=== PATIENT | male | born 1975 | race Two or more races ===

== ENCOUNTER 2021-11-24 20:25 | Inpatient (IN) | payer OTHER, SELFPAY ==
--- NOTE | ~2021-11-24 | US_ITS ---
EXAMINATION: LEFT LOWER EXTREMITY ARTERIAL DUPLEX CLINICAL INFORMATION: IV drug abuser with pulsating mass in left ankle COMPARISON: Plain film radiographs earlier today TECHNIQUE: Color flow Doppler imaging was performed of the area of clinical clinical concern overlying the medial malleolus. FINDINGS: There is marked soft tissue swelling. Within the center of the soft tissue swelling is an approximately 2.7 x 1.6 cm pseudoaneurysm with swirling flow. The neck of this or even its connection with the posterior tibial artery is not seen. US/US arterial duplex LE IMPRESSION: Aneurysm overlying medial malleolus. This most likely is a pseudoaneurysm. If surgical repair is being considered, would perform a CT angiogram chest prior to this. If this is not infected, in the neck can be better defined, this could be amenable to ultrasound-guided thrombin injection.
--- NOTE | ~2021-11-24 | XR_ITS ---
EXAMINATION: XR ANKLE, LEFT CLINICAL INFORMATION: Abscess on internal border. Swelling. COMPARISON: None TECHNIQUE: AP, lateral, and mortise views of the left ankle. FINDINGS: Visualized portions of the distal tibia and fibula demonstrate no fracture. Expansile, approximately 4.5 x 1.5 x 3.7 cm lobulated density projecting over the soft tissues of the medial ankle likely corresponds with reported history of abscess. There is no gross underlying cortical irregularity. Ankle mortise is maintained. No gross ankle joint effusion identified. Tiny posterior calcaneal enthesophyte. XR/XR ankle LT min 3V IMPRESSION: Suspected 4.5 cm abscess of the medial ankle. No underlying osseous abnormality. Finding can be further assessed with ultrasound imaging as clinically indicated.
[2021-11-24 20:36] VITALS: BP 185/103; PULSE 102; RESP 20; TEMP 37.7; O2SAT 95; BMI 33.0
[2021-11-24 20:57] VITALS: BP 132/78; PULSE 93; RESP 16; TEMP 36.8; O2SAT 95
--- NOTE | 2021-11-24 21:01 | ED.SKABFB ---
HPI - Skin/Abscess/Foreign Bdy General Chief complaint: Skin/Abscess/Foreign Body Stated complaint: LEFT FOOT INFECTION Time Seen by Provider: 11/24/21 21:01 Source: patient Mode of arrival: EMS Limitations: no limitations History of Present Illness HPI narrative: 5 days ago injected heroin/cocaine into L ankle for the first time saw a collection of blood form right after and also felt severe burning pain like a nerve down the bottom of his foot. The collection has gotten bigger; Today he stepped down on it and it got much bigger and blood shot across the room, he called 911. MD complaint: abscess/boil and lesion Onset (ago): day(s) (5) Tetanus up to date: yes Location: LLE (ankle at injection site) Severity: moderate Quality: aching Relieving factors: none Exacerbating factors: palpation Context: IVDA (site popped and some blood came out today does not use blood thinners) Associated symptoms: denies other symptoms and other Treatments prior to arrival: other Related Data Home Medications Medication Instructions Recorded Confirmed amlodipine 5 mg tablet 1 tab PO DAILY 11/25/21 11/25/21 melatonin 5 mg tablet 1 tab PO BEDTIME PRN 11/25/21 11/25/21 Allergies Allergy/AdvReac Type Severity Reaction Status Date / Time shellfish derived Allergy Unknown ANGIOEDEMA Verified 11/24/21 20:35 [SHELLFISH DERIVED] shellfish Allergy Unknown anaphylaxis Uncoded 06/04/19 00:00 Review of Systems Review of Systems: Constitutional : No Fever, No Chills ENT/Mouth : No sore throat, No Rhinorrhea Eyes: No Eye Pain, No Swelling, No Redness Cardiovascular : No Chest Pain, No SOB Respiratory : No Cough, No Sputum Gastrointestinal : No Nausea, No Vomiting, No Diarrhea, No abdominal Pain Genitourinary : No Dysuria, No Hematuria Musculoskeletal : No joint pain, No Myalgias, No Joint Swelling Skin : No Skin Lesions, positive skin rash Neuro : No Weakness, No Numbness, No Headache Psych : No Anxiety, No Depression Heme/Lymph: No Bruising, No Bleeding,No Lymphadenopathy Endocrine : No Polyuria, No Polydipsia All other systems reviewed and are negative PMFSH Past Medical History Attestation statement: The following information was validated with the patient. Medical History (Updated 11/25/21 @ 04:30 by Hetal Kruse DO) Active substance abuse Social History Social History (Updated 11/24/21 @ 21:18 by Hetal Kruse DO) Alcohol intake: never Patient Tobacco Use Status: Current someday Tobacco user Use of substances other than those prescribed or required for medical reasons: Yes Substance Use Type: Crack/Cocaine, Former Substance User and Heroin Substance Use Frequency: Chronic Longstanding Last Used Substance: Days (ago) Any prior treatment program specific to substance use: Yes Advance Directives: No Advance Directives Information Provided: No Physical Exam Vital Signs: Vital Signs: Last Vital Signs Temp 98.1 F 11/24/21 23:21 Pulse 79 11/24/21 23:21 Resp 16 11/25/21 06:06 BP 135/72 11/24/21 23:21 Pulse Ox 98 11/24/21 23:21 BMI result Body Mass Index 33.0 Appearance: Alert. Oriented X3. No acute distress. Eyes: Pupils equal, round and reactive to light. ENT: Pharynx normal. Neck: Normal inspection. Neck supple. CVS: Normal heart rate and rhythm. Pulses normal. Respiratory: No respiratory distress. Breath sounds normal. Abdomen: Soft and non-tender. Skin: Skin warm and dry. Normal skin color. Normal skin turgor. Extremities: No lower extremity edema. L ankle medial malleolus large hemorrhagic tense blister 4cm with yellowish fluid filled areas noted - inferior portion open area slit shape area 1.5cm no bleeding seen but dried blood on heel - mild erythema/edema, no swelling/pain around ankle joint itself NV intact no lymphangitis, erythema does not surround the ankle itself. Not circumferential it does not involve the joint. Neuro: Oriented X 3. No motor deficit. No sensory deficit. Course Course Course Narrative: after betadine prep and LMX application under sterile precautions I went to I/D area through the open slit using the 18G through the open slit and slowly introduced needle but no blood in syringe and no blood drained from the open wound itself I palpated deeply on the upper portion and noted a pulsatile feeling - procedure stopped immediately. area dressed, US ordered ? pseudoaneurysm? distal NV intact Dr. White will see in AM Patient placed in physician observation at 1115pm. The indication for observation is that the patient needs more time for IV antibiotics as well as vascular surgery consult in AM. At this time the patient is well developed well nourished, lungs clear, CV RRR, abd nontender, neuro is intact. signed out to Dr. Vazquez pending consult by Dr. White 546am the patient tried to stand up and abruptly the area that had opened up at home re-opened again and he had pulsatile bleeding from the area - direct pressure placed and pressure dressing placed. DP pulse intact, foot warm to touch, repeat call to vascular surgery given change patient with good pulses, now having significant anxiety after bleeding episode foot is warm and well perfused 2+ DP pulse, can wiggle toes sensation intact, he is not bleeding through dedra wrap. Dr. White is aware coming in to see patient 6am. Patient aware. Patient with hx of methadone and IVDA abuse difficult to control pain at this time. MDM - Skin/Abscess/Foreign Bdy MDM Narrative Medical decision making narrative: 46 yo male with hx of HVDA here with c/o L ankle abscess which seems more like hemorrhagic bulla with cellulitis - does not have ankle effusion distal NV intact no extension of infection up the leg just overlying the area no systemic symptoms can range joint at this time labs, IV zosyn, vancomycin will open area with 18G and try to decompress the bullae itself Lab Data Result diagrams: 11/24/21 21:53 11/24/21 21:53 Labs: Lab Results 11/24/21 11/24/21 11/24/21 Range/Units 21:53 21:53 21:53 WBC 10.0 (4.8-10.8) X10*3/uL RBC 4.01 L (4.60-5.80) X10*6/uL Hgb 12.3 L (14.0-18.0) g/dl Hct 36.4 L (42.0-52.0) % MCV 90.8 (80.0-98.0) fL MCH 30.7 (27.0-33.0) pg MCHC 33.8 (31.0-36.0) g/dl RDW 14.4 (11.0-16.0) % Plt Count 276 (160-400) X10*3/uL MPV 10.3 (9.4-12.4) fL Immature Gran % (Auto) 0.4 (0.0-0.4) % Neut % (Auto) 84.9 H (45-73) % Lymph % (Auto) 6.1 L (20-40) % [place] % (Auto) 7.6 (2-11) % Eos % (Auto) 0.9 (0-4) % Baso % (Auto) 0.1 (0-2) % Lymph # (Auto) 0.6 L (1.2-4.9) X10*3/uL [place] # (Auto) 0.8 (0.1-1.2) X10*3/uL Eos # (Auto) 0.1 (0.0-0.4) X10*3/uL Baso # (Auto) 0.0 (0.0-0.2) X10*3/uL Abs Immat Gran (auto) 0.04 H (0.00-0.03) X10*3/uL Absolute Neuts (auto) 8.5 H (2.0-8.3) x10*3/uL Absolute Nucleated RBC 0.000 (0.0-0.012) X10*3/uL Nucleated RBC % (auto) 0.0 (0.0-0.2) /100WBC PT (9.9-13.0) SEC INR (0.9-1.1) Sodium 138 (135-145) mmol/L Potassium 3.8 (3.3-5.1) mmol/L Chloride 105 (96-108) mmol/L Carbon Dioxide 25 (22-29) mmol/L Anion Gap 12 (12-20) BUN 15 (9-16) mg/dL Creatinine 0.80 (0.5-1.4) mg/dL Estim Creat Clear Calc 138.2 Estimated GFR > 60 Random Glucose 133 H (60-115) mg/dL Lactic Acid 1.0 (0.5-2.0) mmol/L Calcium 9.2 (8.4-10.2) mg/dL COVID-19 ([facility]) (Negative) COVID-19 Clin Com 11/24/21 11/25/21 Range/Units 23:19 06:20 WBC (4.8-10.8) X10*3/uL RBC (4.60-5.80) X10*6/uL Hgb (14.0-18.0) g/dl Hct (42.0-52.0) % MCV (80.0-98.0) fL MCH (27.0-33.0) pg MCHC (31.0-36.0) g/dl RDW (11.0-16.0) % Plt Count (160-400) X10*3/uL MPV (9.4-12.4) fL Immature Gran % (Auto) (0.0-0.4) % Neut % (Auto) (45-73) % Lymph % (Auto) (20-40) % [place] % (Auto) (2-11) % Eos % (Auto) (0-4) % Baso % (Auto) (0-2) % Lymph # (Auto) (1.2-4.9) X10*3/uL [place] # (Auto) (0.1-1.2) X10*3/uL Eos # (Auto) (0.0-0.4) X10*3/uL Baso # (Auto) (0.0-0.2) X10*3/uL Abs Immat Gran (auto) (0.00-0.03) X10*3/uL Absolute Neuts (auto) (2.0-8.3) x10*3/uL Absolute Nucleated RBC (0.0-0.012) X10*3/uL Nucleated RBC % (auto) (0.0-0.2) /100WBC PT 12.0 (9.9-13.0) SEC INR 1.1 (0.9-1.1) Sodium (135-145) mmol/L Potassium (3.3-5.1) mmol/L Chloride (96-108) mmol/L Carbon Dioxide (22-29) mmol/L Anion Gap (12-20) BUN (9-16) mg/dL Creatinine (0.5-1.4) mg/dL Estim Creat Clear Calc Estimated GFR Random Glucose (60-115) mg/dL Lactic Acid (0.5-2.0) mmol/L Calcium (8.4-10.2) mg/dL COVID-19 ([facility]) Negative (Negative) COVID-19 Clin Com See Note Critical Care Time Critical Care Time Critical Care Time: Yes Total Critical Care Time: 60 Attestation: repeat NV checks, IV pain medications, medical consults, repeat IV antibiotics I attest to this time spent taking care of the patient Discharge Plan Discharge Clinical Impression: Abscess, Pseudoaneurysm Cellulitis Qualifiers: Site of cellulitis: extremity Site of cellulitis of extremity: lower extremity Laterality: left Qualified Code(s): L03.116 - Cellulitis of left lower limb Patient Disposition: Still a Patient Prescriptions: No Action amlodipine 5 mg tablet 1 tab PO DAILY 0RF melatonin 5 mg tablet 1 tab PO BEDTIME PRN (Reason: Sleep) 0RF
[2021-11-24] MEDS: Lidocaine 4 % Cream KIT 1 APPL TOPICAL (21:30)
[2021-11-24] MEDS: Lidocaine HCl 1 % 20 ML VIAL SUBCUT (21:30)
--- NOTE | 2021-11-24 21:31 | PC.NURSE ---
ABLE TO GET IV ACCESS TO THE LEFT UPPER ARM 20G, UNABLE TO GET LAB WORK WITH IV WAS ACCESSED. PCT ATTEMPTING BLOOD DRAW AT THIS TIME. AWAITING BLOOD CULTURES TO BE DRAWN FOR ANTIBIOTIC ADMINISTRATION. PROVIDER IS AWARE OF DELAY IN CULTURE DRAW AND ANTIBIOTICS
--- NOTE | 2021-11-24 21:55 | PC.NURSE ---
CONTNIUED ATTEMPTS FOR LAB DRAW AND BLOOD CULTURES
[2021-11-24] MEDS: Piperacillin Sodium/Tazobactam 3.375 GM in 0.9 % Sodium Chloride 50 ML IV (21:58)
[2021-11-24 22:03] LABS: MANUAL DIFF FLAG NO
[2021-11-24 22:12] LABS: Basophils Percent Auto 0.1 % (0-2); Eosinophils Absolute Auto 0.1 X10*3/uL (0.0-0.4); Eosinophils Percent Auto 0.9 % (0-4); Hematocrit 36.4 % (42.0-52.0); Hemoglobin 12.3 g/dl (14.0-18.0); Imm Gran Abs Auto 0.04 X10*3/uL (0.00-0.03); Imm Gran Pct Auto 0.4 % (0.0-0.4); Lymphocytes Absolute Auto 0.6 X10*3/uL (1.2-4.9); Lymphocytes Percent Auto 6.1 % (20-40); Mean Corpuscular HGB Conc 33.8 g/dl (31.0-36.0); Mean Corpuscular Hemoglobin 30.7 pg (27.0-33.0); Mean Corpuscular Volume 90.8 fL (80.0-98.0); Mean Platelet Volume 10.3 fL (9.4-12.4); Monocytes Absolute Auto 0.8 X10*3/uL (0.1-1.2); Monocytes Percent Auto 7.6 % (2-11); Neutrophils Absolute Auto 8.5 x10*3/uL (2.0-8.3); Neutrophils Percent Auto 84.9 % (45-73); Platelet Count 276 X10*3/uL (160-400); Red Blood Count 4.01 X10*6/uL (4.60-5.80); Red Cell Distribution Width 14.4 % (11.0-16.0)
[2021-11-24 22:21] LABS: Anion Gap 12 (12-20); Blood Urea Nitrogen 15 mg/dL (9-16); Calcium 9.2 mg/dL (8.4-10.2); Carbon Dioxide 25 mmol/L (22-29); Chloride 105 mmol/L (96-108); Creatinine Clr Calc Pharmacy 138.2; Estimated Glomerular Filt Rate > 60; Glucose Random 133 mg/dL (60-115); Potassium 3.8 mmol/L (3.3-5.1); Sodium 138 mmol/L (135-145)
[2021-11-24] MEDS: vancomycin HCL 1,250 MG in 0.9 % Sodium Chloride 250 ML 166.67 MG IV (22:41)
[2021-11-24 23:21] VITALS: BP 135/72; PULSE 79; RESP 16; TEMP 36.7; O2SAT 98
[2021-11-24 23:42] LABS: COVID-19 Test Negative (Negative); IDNOW Serial# 9DD0AD1C
[2021-11-24] MEDS: diphenhydrAMINE HCL 50 MG/ML VIAL IVPUSH (23:42)
[2021-11-25] VITALS (24 sets, daily range): BP systolic 109–193; BP diastolic 59–110; PULSE 67–108; RESP 16–20; TEMP 36–36.9; O2SAT 94–99
--- NOTE | 2021-11-25 03:03 | PC.NURSE ---
ASSUMED CARE OF THIS PATIENT FROM [facility]OMI VALERA AT THIS TIME. PATIENT SLEEPING COMFORTABLY ON STRETCHER. AWAITING CONSULT WITH VASCULAR SURGERY IN THE AM.
--- NOTE | 2021-11-25 03:35 | PC.NURSE ---
HOLDING OFF ON CT IMAGING FOR PATIENT UNTIL VASCULAR EVALUATES PATIENT IN THE AM, PROVIDER DR. SCHROEDER IS AWARE.
[2021-11-25] MEDS: HYDROmorphone HCl 1 MG/ML SYRINGE IVPUSH (05:53)
[2021-11-25] MEDS: 0.9 % Sodium Chloride 1,000 ML 999 ML IV (06:02)
[2021-11-25] MEDS: LORazepam 2 MG/ML VIAL 1 MG IVPUSH (06:03)
[2021-11-25] MEDS: fentaNYL citrate/PF 100 MCG/2 ML VIAL 50 MCG IVPUSH (06:06)
--- NOTE | 2021-11-25 06:09 | PC.NURSE ---
PATIENT HEARD SCREAMING IN HIS ROOM. RN GOING INTO ROOM, PATIENT HAVING BLEEDING FROM WOUND SITE, UNDER THE PRESSURE DRESSING. PATIENT STATING THAT HE TRIED TO GET UP AND WALK TO THE BATHROOM AND THEN HIS FOOT STARTED TO BLEED. RN HOLDING PRESSURE TO SITE AND CALLING FOR ADDITIONAL STAFF AND MD TO BEDSIDE. PATIENT WRITHING AROUND ON STRETCHER. KICKING HIS EFFECTED LEG AROUND. HAVING DIFFICULTY HOLDING STILL, CONTINUING TO YELL AND PANIC. PROVIDER PLACING A CALL OUT TO VASCULAR SURGEON WHO IS ON HIS WAY TO EVALUATE PATIENT. BLEEDING CONTROLLED WITH PRESSURE AND DRESSING ONCE AGAIN. PATIENT INFORMED TO STOP MOVING LEG OR ATTEMPTING TO GET UP. PATIENT CONTINUES TO MOVE LEG. MEDICATED PER MAR WITH MULTIPLE MEDICATIONS FOR PAIN AND PATIENTS PANICKING. TYPE AND SCREEN ORDERED AND ADDITIONAL LABS.
--- NOTE | 2021-11-25 06:23 | PC.NURSE ---
PATIENT REPORTS TAKING METHADONE, STATING HE GOES THE [facility] THAT [facility] LOC[facility] IN [place], STATING THEY OPEN AFTER 7AM TO CALL AND CONFIRM THE DOSE.
[2021-11-25 06:33] LABS: INTERNATIONAL NORM RATIO 1.1 (0.9-1.1)
[2021-11-25] MEDS: Morphine Sulfate 4 MG/ML CARTRIDGE IVPUSH (07:35)
--- NOTE | 2021-11-25 07:35 | PC.NURSE ---
pt taken to or emergent due to arterial bleed, on left ankle, pt uses iv drugs and caused an arterial abscess, surgical attempted to repair at bedside and was unable to controll bleeding
--- NOTE | 2021-11-25 07:47 | HO.ANESPROP2 ---
HPI - Anesthesia Eval Consult details Narrative: 46 M for LLE exploration As per chart review he injected speedball in to his left ankle approximately 4 days prior.? It subsequently developed a hematoma ? This morning he had gotten up to go to the bathroom and it started to bleed . ?Taking patient to OR emergently PMFSH Active Problems Active Problems: All Active Problems (Updated 11/25/21 @ 04:30 by Hetal Kruse DO) Cellulitis (Acute) Abscess (Acute) Pseudoaneurysm (Acute) Past Medical History Medical History (Updated 11/25/21 @ 04:30 by Hetal Kruse DO) Active substance abuse Family History Family history of problems with anesthesia: No Surgical History History of Problems with Anesthesia: No (Denies prior anesthesia ) Social History Social History (Updated 11/24/21 @ 21:18 by Hetal Kruse DO) Alcohol intake: never Patient Tobacco Use Status: Current someday Tobacco user Use of substances other than those prescribed or required for medical reasons: Yes Substance Use Type: Crack/Cocaine, Former Substance User and Heroin Substance Use Frequency: Chronic Longstanding Last Used Substance: Days (ago) Any prior treatment program specific to substance use: Yes Advance Directives: No Advance Directives Information Provided: No Meds Allergies Allergy/AdvReac Type Severity Reaction Status Date / Time shellfish derived Allergy Unknown ANGIOEDEMA Verified 11/24/21 20:35 [SHELLFISH DERIVED] shellfish Allergy Unknown anaphylaxis Uncoded 06/04/19 00:00 Home Medications Medication Instructions Recorded Confirmed Last Taken Type amlodipine 5 mg tablet 1 tab PO DAILY 11/25/21 11/25/21 Unknown History melatonin 5 mg tablet 1 tab PO BEDTIME PRN 11/25/21 11/25/21 Unknown History Exam Exam Date and Time: November 25, 2021 0747 Height,Weight and Vital Signs: Height 5 ft 10 in Weight 104.512 kg Last Vital Signs Temp 98.4 F 11/25/21 06:35 Pulse 108 H 11/25/21 07:33 Resp 18 11/25/21 07:33 BP 193/110 H 11/25/21 07:33 Pulse Ox 97 11/25/21 07:33 Pertinent Lab Results Pertinent Lab Results: Laboratory Tests 11/24/21 11/24/21 11/24/21 21:53 21:53 21:53 WBC 10.0 RBC 4.01 L Hgb 12.3 L Hct 36.4 L MCV 90.8 MCH 30.7 MCHC 33.8 RDW 14.4 Plt Count 276 MPV 10.3 Immature Gran % (Auto) 0.4 Neut % (Auto) 84.9 H Lymph % (Auto) 6.1 L [place] % (Auto) 7.6 Eos % (Auto) 0.9 Baso % (Auto) 0.1 Lymph # (Auto) 0.6 L [place] # (Auto) 0.8 Eos # (Auto) 0.1 Baso # (Auto) 0.0 Abs Immat Gran (auto) 0.04 H Absolute Neuts (auto) 8.5 H Absolute Nucleated RBC 0.000 Nucleated RBC % (auto) 0.0 PT INR Sodium 138 Potassium 3.8 Chloride 105 Carbon Dioxide 25 Anion Gap 12 BUN 15 Creatinine 0.80 Estim Creat Clear Calc 138.2 Estimated GFR > 60 Random Glucose 133 H Lactic Acid 1.0 Calcium 9.2 COVID-19 ([facility]) COVID-19 Clin Com 11/24/21 11/25/21 23:19 06:20 WBC RBC Hgb Hct MCV MCH MCHC RDW Plt Count MPV Immature Gran % (Auto) Neut % (Auto) Lymph % (Auto) [place] % (Auto) Eos % (Auto) Baso % (Auto) Lymph # (Auto) [place] # (Auto) Eos # (Auto) Baso # (Auto) Abs Immat Gran (auto) Absolute Neuts (auto) Absolute Nucleated RBC Nucleated RBC % (auto) PT 12.0 INR 1.1 Sodium Potassium Chloride Carbon Dioxide Anion Gap BUN Creatinine Estim Creat Clear Calc Estimated GFR Random Glucose Lactic Acid Calcium COVID-19 ([facility]) Negative COVID-19 Clin Com See Note Airway Mallampati Class: II TM Dist: >3cm Neck ROM: Full Loose/Missing/Broken Teeth: Yes (Extremely poor dentation ) Heart: rrr Lungs: distant breath sounds Assessment and Plan Assessment Anesthesia Assessment: Anesthesia Plan Discussed Final Anesthetic Review Family History of Problems with Anesthesia: No History of Problems with Anesthesia: No (Denies prior anesthesia ) NPO: Yes ASA Class: III and Emergency Final Preanesthetic Review: Consent Obtained/Reviewed and Anes Risks/Benef Reviewed Patient Risk: High Procedure Risk: High Anesthetic Plan Anesthetic Plan: GA Disposition: Inp. Admit - [place] Bed
--- NOTE | 2021-11-25 07:54 | P.HPVS_ITS ---
History of Present Illness History of Present Illness Date of Service: 11/25/21 Chief complaint: LEFT FOOT INFECTION Narrative: Sven Mcpherson is a 46 year old male who was in his usual state of health with no significant comorbidities reports that he injected speedball in to his left ankl e approximately 4 days prior. It subsequently is a swallow up the developed a hematoma and some ecchymosis. Yesterday evening it began to bleed. He presented to the ER. Compression dressing was placed and it was subsequently well controlled. This morning he had gotten up to go to the bathroom and it Tila bled. It was repacked. At the time of my examination it was Tila opened and there was pulsatile red blood noted. He was subsequently emergently transferred to ER. [facility] Past Medical History Medical History (Updated 11/25/21 @ 04:30 by Hetal Kruse DO) Active substance abuse Social History Social History (Updated 11/24/21 @ 21:18 by Hetal Kruse DO) Alcohol intake: never Patient Tobacco Use Status: Current someday Tobacco user Use of substances other than those prescribed or required for medical reasons: Yes Substance Use Type: Crack/Cocaine, Former Substance User and Heroin Substance Use Frequency: Chronic Longstanding Last Used Substance: Days (ago) Any prior treatment program specific to substance use: Yes Advance Directives: No Advance Directives Information Provided: No Meds Allergies Allergy/AdvReac Type Severity Reaction Status Date / Time shellfish derived Allergy Unknown ANGIOEDEMA Verified 11/24/21 20:35 [SHELLFISH DERIVED] shellfish Allergy Unknown anaphylaxis Uncoded 06/04/19 00:00 Home Medications Medication Instructions Recorded Confirmed Last Taken Type amlodipine 5 mg tablet 1 tab PO DAILY 11/25/21 11/25/21 Unknown History melatonin 5 mg tablet 1 tab PO BEDTIME PRN 11/25/21 11/25/21 Unknown History Physical Exam Vital Signs: Vital Signs: Last Vital Signs Temp 98.4 F 11/25/21 06:35 Pulse 108 H 11/25/21 07:33 Resp 18 11/25/21 07:33 BP 193/110 H 11/25/21 07:33 Pulse Ox 97 11/25/21 07:33 BMI result Body Mass Index 33.0 Const: General: cooperative, healthy appearing and no acute distress Orientation/consciousness: oriented to person, oriented to place and oriented to time HENMT: Head: Yes normal to inspection Neck: Carotids: no bruits Chest: Chest palpation & inspection: normal inspection of the chest Resp: Effort & Inspection: normal respiratory effort and able to speak in complete sentences Auscultation: clear to auscultation bilaterally Cardio: Rate: regular rate Heart sounds: S1 normal heart sound present and S2 normal heart sound present GI: Inspection: Yes normal to inspection Skin: Other: Left medial calf/ankle pulsatile red blood General skin exam: no rashes or lesions noted Wounds: no wounds Neuro: General: oriented to person, oriented to place, oriented to time and CN's II-XI intact bilaterally Extrem: General: Yes normal to inspection, Yes full ROM and Yes no clubbing, cyanosis or edema Psych: Appearance: grossly normal and well kempt Speech and movement: Normal speech and movement present Affect: normal affect Results Results Labs: Short CBC 11/24/21 Range/Units 21:53 WBC 10.0 (4.8-10.8) X10*3/uL Hgb 12.3 L (14.0-18.0) g/dl Hct 36.4 L (42.0-52.0) % Plt Count 276 (160-400) X10*3/uL BMP 11/24/21 21:53 Sodium 138 Potassium 3.8 Chloride 105 Carbon Dioxide 25 BUN 15 Creatinine 0.80 Calcium 9.2 Assessment and Plan (1) Pseudoaneurysm: Status: Acute Plan Acute bleed from left lower extremity. He was emergently transferred to the OR. He will require left leg exploration possible repair of arterial injury possible ligation. Risks benefits complications including limb loss was discussed with the patient. He was in agreement and we urgently moved forward. Thank you for allowing us to assist in his care Quality Stroke Does the patient have a stroke diagnosis?: No VTE Prior VTE?: No VTE Risk Level:: Surgical - very high VTE Device Contraindication: Treatment Not Indicated VTE Drug Contraindication: Treatment Not Indicated Procedures Date of Service Date of Service: 11/25/21
--- NOTE | 2021-11-25 07:58 | PC.NURSE ---
Patient arrived in ED stretcher 20g to left upper arm with NS running. Area around IV site red, raised, hard & cold. IV fluid line clamped and new IV established.
--- NOTE | 2021-11-25 07:59 | MHC.SHP ---
Pre-Procedural Eval Section A Date of Service: 11/25/21 The patient is an INPATIENT: No Changes since office visit: Yes Patient answered all questions The History & Physical has been completed within 30 days and I have reviewed it.: Yes Section B Chief Complaint: LEFT FOOT INFECTION Allergies: Allergies Allergy/AdvReac Type Severity Reaction Status Date / Time shellfish derived Allergy Unknown ANGIOEDEMA Verified 11/24/21 20:35 [SHELLFISH DERIVED] shellfish Allergy Unknown anaphylaxis Uncoded 06/04/19 00:00 Plan I have reviewed the history and physical and performed a pertinent physical examination on my patient. No changes have occurred unless specified.
--- NOTE | 2021-11-25 09:25 | W.PM.OPN ---
Operative Note Operative Note Date of Service: 11/25/21 Narrative: Operative note by [facility] Preoperative diagnosis: bleeding vessel left lower extremity Postoperative diagnosis: same Procedure:1. cutdown and exploration of left lower extremity posterior tibial artery 2. thrombectomy of left posterior tibial artery 3. resection of pseudoaneurysm 4. ligation of posterior tibial artery Surgeon:Rickie White M.D. Rug Inspector Helper: Dr. Cowan Anesthesia: general Specimens: 1 Drains: none Estimated blood loss: 100 mL Indications: 46-year-old gentleman with history of IV drug abuse. Reports that he had injected speedball in to the left ankle on a repeated basis. Developed a bleed yesterday. There was subsequently controlled. This morning upon ambulation it started to bleed again. He now presents to OR for exploration of vessel possible repair possible ligation. The patient has signed the informed consent after reviewing risks, complications, benefits, and alternatives previously discussed with the patient. The patient was given the opportunity to ask any additional questions or voice any concerns. All questions were answered to the patient's satisfaction. Procedure in detail: Patient was brought to the operating room prior to which a time-out was called for patient identification and site verification. ChloraPrep had to be used due to his allergy to shellfish. Once this was done we then placed a tourniquet in the left thigh at 250 mmHg. Once this was insufflated we then started to explore down on to the vessel. We E were able to encounter the posterior tibial artery. We recognized the pseudoaneurysm. This was resected and sent off the table as specimen. We then brought in a 3. Joseluis. We passed this proximally and distally. There was mild clot and it was totally occluded. At this point the decision was made to ligate the vessel. We ligated with a 3-0 silk tie. This was done proximally and distally. Adequate hemostasis was achieved. We irrigated out the wound thoroughly. adequate hemostasis was achieved. We then reapproximated the deep layer with 2 0 poly Sorb. Superficial layer with a 3-0 nylon in a mattress fashion. Xeroform and a sterile dressing were applied. At the end the case sponge instrument counts were correct. Patient tolerated the procedure well. Returned to recovery with stable vitals. This note is constructed using voice recognition software. While every effort has been made to ensure accuracy, tool crib lead errors may have been included. Thank you for allowing me to participate in the care of your patient. Yours sincerely, Rickie White MD, FACS, R.P.V.I.
--- NOTE | 2021-11-25 09:51 | PHA.MEDREC ---
Pharmacy Consult ? Medication Reconciliation Pharmacy has reviewed the medication reconciliation complete overnight by Debra. There are no remarkable issues for provider's attention. Amanda Tate, GiuseppeD
[2021-11-25] MEDS: 0.9 % Sodium Chloride 1,000 ML 80 ML IVCONT (10:47)
[2021-11-25] MEDS: HYDROmorphone HCl 0.5 MG/0.5 ML SYRINGE IVPUSH (12:09)
[2021-11-25] MEDS: oxyCODONE HCl Immed Release 5 MG TABLET PO (12:09)
[2021-11-25] MEDS: Piperacillin Sodium/Tazobactam 4.5 GM in 0.9 % Sodium Chloride 100 ML IV ×2 (13:05→20:23)
--- NOTE | 2021-11-25 13:48 | PHA.PROG ---
Admission Date/Time: November 25, 2021 09:21 Indication: BACTEREMIA Weight in k.512 kg Adjusted body weight in K.625 [place] body weight in K Obesity Dosing Indication % IBW: 143% Serum Creatinine - Last 168 Hours 11/24/21 21:53 Creatinine 0.80 Estimated CrCl and GFR - Last 168 Hours 11/24/21 21:53 Estim Creat Clear Calc 138.2 Estimated GFR > 60 Vancomycin Loading Dose: 1250 Current Vancomycin Dosing Regimen: 1000 Q12 H Vancomycin Monitoring using AUC goal of 400 - 600 range with trough as surrogate marker: 444MG/L HR Date and Time for next Vancomycin Level to be drawn: 11/26 @1200 Pharmacist Comments on Vancomycin Plan: Vancomycin dosing will take advantage of lucierna as a clinical decision support tool that uses Bayesian modeling to calculate individual patient's pharmacokinetic parameters and forecast the patient's drug concentration time course with the target goal AUC 24 range of 400 - 600 mg/L/hr.
[2021-11-25 13:49] LABS: Hematocrit 33.3 % (42.0-52.0); Mean Corpuscular Hemoglobin 30.5 pg (27.0-33.0); Mean Corpuscular Volume 92.2 fL (80.0-98.0); Mean Platelet Volume 9.6 fL (9.4-12.4); Platelet Count 277 X10*3/uL (160-400); Red Blood Count 3.61 X10*6/uL (4.60-5.80); Red Cell Distribution Width 14.7 % (11.0-16.0); White Blood Count 10.5 X10*3/uL (4.8-10.8)
--- NOTE | 2021-11-25 14:33 | HO.PM.IMCN ---
History of Present Illness Data of Consult Service Date: 11/25/21 Requesting physician: Rickie White Primary Care Provider: Unknown Physician HPI Consult for 46yoM who 5 days ago injected heroin/cocaine into L ankle . Noted large mass that began to bleed upon standing. Seen in ER; work -up consistent with pseudoaneurysm. Seen by Dr White(Vascular)...taken to OR this am for exploration with ultimate ligation of posterior Tibial artery. Seen post-op; pain control adequate. Of note, states daily Methadone 85mg. Addiction medicine consulted. BC 11/17 GPC. Review of Systems Review of Systems: Denies CP Denies SOB Denies N/V/D [facility] Medical History Active substance abuse Social History Alcohol intake: never Patient Tobacco Use Status: Current someday Tobacco user Use of substances other than those prescribed or required for medical reasons: Yes Substance Use Type: Crack/Cocaine, Former Substance User and Heroin Substance Use Frequency: Chronic Longstanding Last Used Substance: Days (ago) Any prior treatment program specific to substance use: Yes Advance Directives: No Advance Directives Information Provided: No Meds Allergies Allergy/AdvReac Type Severity Reaction Status Date / Time shellfish derived Allergy Unknown ANGIOEDEMA Verified 11/24/21 20:35 [SHELLFISH DERIVED] shellfish Allergy Unknown anaphylaxis Uncoded 06/04/19 00:00 Active Medications: Current Medications Acetaminophen (Acetaminophen Supp 650 Mg Supp.Rect) 650 mg NE Q6H PRN PRN Reason: Pain, Mild (Pain Scale 1-3) Albuterol Sulfate (Albuterol Sulfate (0.083%) 2.5 Mg/3 Ml Vial.Neb) 2.5 mg INHALE ONCE PRN PRN Reason: Wheezing Amlodipine Besylate (Amlodipine Besylate 5 Mg Tablet) 5 mg PO DAILY [facility]; Protocol Hydromorphone HCl (Hydromorphone Hcl 0.5 Mg/0.5 Ml Syringe) 0.5 mg IVPUSH Q5M PRN; Protocol PRN Reason: Pain, Severe (Pain Scale 7-10) Last Admin: 11/25/21 12:09 Dose: 0.5 mg Documented by: Promethazine HCl 12.5 mg/ (Sodium Chloride) 50.5 mls @ 202 mls/hr IV ONCE PRN PRN Reason: Nausea and Vomiting Sodium Chloride (Ns) 1,000 mls @ 80 mls/hr IVCONT .[id number] [facility] Last Admin: 11/25/21 10:47 Dose: 80 mls/hr Documented by: Cefazolin Sodium/Dextrose (Ancef) 2 gm in 50 mls @ 100 mls/hr IV POSTOP ONE Stop: 11/25/21 14:59 Piperacillin Sod/Tazobactam (Sod 4.5 gm/ Sodium Chloride) 100 mls @ 200 mls/hr IV Q8H [facility] Last Infusion: 11/25/21 14:17 Dose: Infused Documented by: Vancomycin HCl 1,000 mg/ (Sodium Chloride) 270 mls @ 270 mls/hr IV Q12H [facility] Melatonin (Melatonin 3 Mg Tablet) 6 mg PO BEDTIME PRN PRN Reason: Sleep Morphine Sulfate (Morphine Sulfate 2 Mg/Ml Cartridge) 2 mg IVPUSH Q4H PRN; Protocol PRN Reason: Pain, Severe (Pain Scale 7-10) Oxycodone HCl (Oxycodone Hcl Immed Release 5 Mg Tablet) 5 mg PO Q4H PRN PRN Reason: Pain, Moderate (Pain Scale 4-6 Last Admin: 11/25/21 12:09 Dose: 5 mg Documented by: Pharmacy Consult (Consult Rx Perform Med Rec) 1 each MISCELLANE ONCE PRN PRN Reason: Consult order Pharmacy Consult (Consult Rx Vancomycin Dosing) 1 each MISCELLANE DAILY PRN PRN Reason: Consult order Sodium Chloride (0.9 % Sodium Chloride Flush 3 Ml Syringe) 3 ml IVFLUSH QSHIFT [facility] Home Medications Medication Instructions Recorded Confirmed Last Taken Type amlodipine 5 mg tablet 1 tab PO DAILY 11/25/21 11/25/21 Unknown History melatonin 5 mg tablet 1 tab PO BEDTIME PRN 11/25/21 11/25/21 Unknown History Physical Exam Vital Signs and Narrative: Vital Signs: Last Vital Signs Temp 98.3 F 11/25/21 11:00 Pulse 83 11/25/21 13:00 Resp 17 11/25/21 13:00 BP 126/63 11/25/21 13:00 Pulse Ox 99 11/25/21 13:00 BMI result Body Mass Index 33.0 Const: Other: NAD post op; minimal discomfort Resp: Other: Clear A/P. Scattered expiratory wheezes lower lobes Cardio: Other: -S4 +S1/S2 -S3 MRG GI: Other: soft NT/ND NABS x 4 quads Extrem: Other: LLE DAMIAN wrap dsg c/d/I Results Labs CBC and Chem 7: 11/25/21 13:41 11/24/21 21:53 Labs: Laboratory Results - last 24 hr 11/24/21 11/24/21 11/24/21 21:53 21:53 21:53 MCV 90.8 MCH 30.7 MCHC 33.8 RDW 14.4 Plt Count 276 MPV 10.3 Immature Gran % (Auto) 0.4 Neut % (Auto) 84.9 H Lymph % (Auto) 6.1 L Desha % (Auto) 7.6 Eos % (Auto) 0.9 Baso % (Auto) 0.1 Lymph # (Auto) 0.6 L Desha # (Auto) 0.8 Eos # (Auto) 0.1 Baso # (Auto) 0.0 Abs Immat Gran (auto) 0.04 H Absolute Neuts (auto) 8.5 H Absolute Nucleated RBC 0.000 Nucleated RBC % (auto) 0.0 PT INR Anion Gap 12 Estim Creat Clear Calc 138.2 Estimated GFR > 60 Random Glucose 133 H Lactic Acid 1.0 Calcium 9.2 COVID-19 ([facility]) COVID-19 Clin Com Blood Type Antibody Screen 11/24/21 11/25/21 11/25/21 23:19 06:20 06:20 MCV MCH MCHC RDW Plt Count MPV Immature Gran % (Auto) Neut % (Auto) Lymph % (Auto) Desha % (Auto) Eos % (Auto) Baso % (Auto) Lymph # (Auto) Desha # (Auto) Eos # (Auto) Baso # (Auto) Abs Immat Gran (auto) Absolute Neuts (auto) Absolute Nucleated RBC Nucleated RBC % (auto) PT 12.0 INR 1.1 Anion Gap Estim Creat Clear Calc Estimated GFR Random Glucose Lactic Acid Calcium COVID-19 ([facility]) Negative COVID-19 Clin Com See Note Blood Type O Positive Antibody Screen NEGATIVE 11/25/21 13:41 MCV 92.2 MCH 30.5 MCHC 33.0 RDW 14.7 Plt Count 277 MPV 9.6 Immature Gran % (Auto) Neut % (Auto) Lymph % (Auto) Desha % (Auto) Eos % (Auto) Baso % (Auto) Lymph # (Auto) Desha # (Auto) Eos # (Auto) Baso # (Auto) Abs Immat Gran (auto) Absolute Neuts (auto) Absolute Nucleated RBC 0.000 Nucleated RBC % (auto) 0.0 PT INR Anion Gap Estim Creat Clear Calc Estimated GFR Random Glucose Lactic Acid Calcium COVID-19 ([facility]) COVID-19 Clin Com Blood Type Antibody Screen Imaging Radiologist's Impressions: Impressions Ankle X-Ray 11/24/21 22:06 IMPRESSION: Suspected 4.5 cm abscess of the medial ankle. No underlying osseous abnormality. Finding can be further assessed with ultrasound imaging as clinically indicated. Duplex Scan Lower Extremity Artery 11/24/21 22:42 IMPRESSION: Aneurysm overlying medial malleolus. This most likely is a pseudoaneurysm. If surgical repair is being considered, would perform a CT angiogram chest prior to this. If this is not infected, in the neck can be better defined, this could be amenable to ultrasound-guided thrombin injection. Assessment and Plan (1) Pseudoaneurysm: Status: Acute (2) Intravenous drug abuse: Status: Acute Plan [id number] S/P post Tibial artery ligation secondary to pseudoaneurysm from IVDA 1. Pseudoaneurysm secondary to IVDA - as per Dr White 2. GPC bacteremia - Vanco/Zosyn pending ID of organism and sensitivities -daily labs 3. Opiate Abuse( states daily Methadone- - Addiction medicine consult
[2021-11-25 14:35] LABS: Base Excess Bedside Calculated 2 mmol/L (-3-3); Glucose, i-STAT 145 mg/dL (60-115); HCO3 Bedside Calculated 27 mmol/L (22-26); Hematocrit Bedside 36 %PCV (42-52); Hemoglobin Bedside 12.2 g/dL (14.0-18.0); Potassium Bedside 5.5 mmol/L (3.3-5.1); SO2 Bedside Calculated 88 %; Sodium Bedside 136 mmol/L (135-145); TCO2 Bedside 29 mmol/L (24-29); pCO2 Bedside 51 mmhg (35-48); pH Bedside 7.34 (7.35-7.45); pO2 Bedside 59 mmhg (83-108)
[2021-11-25] MEDS: methADONE HCl 20 MG/2 ML ORAL.CONC 30 MG PO (15:38)
[2021-11-25] MEDS: ceFAZolin Sodium/Dextrose,Iso 2 GM/50 ML PIGGYBACK IV (15:44)
[2021-11-25] MEDS: 0.9 % Sodium Chloride Flush 3 ML SYRINGE IVFLUSH ×2 (16:43→23:53)
[2021-11-25] MEDS: vancomycin HCL 1,000 MG in 0.9 % Sodium Chloride 250 ML 270 MG IV (16:45)
[2021-11-25] MEDS: methADONE HCl 20 MG/2 ML ORAL.CONC 10 MG PO (19:26)
--- NOTE | 2021-11-25 19:27 | HO.ADDICTPRO ---
Subjective Subjective Date of Service: 11/25/21 Reason For Visit: Bleed Interim History: Patient is a 46 year old male currently medically admitted S/P post Tibial artery ligation secondary to pseudoaneurysm from IVDU Consult requested as patient reports he is currently taking methadone 85mg QD and due to time of day unable to call and verify with clinic. Patient seen by recovery support RN who reports patient was ill appearing, diaphoretic, and anxious. Patient reports last dose of methadone was 11/24 at [facility] When seen by this teletypewriter operator patient has already received methadone 30mg and reported positive effect. No longer diaphoretic, though somewhat pale, awake, alert and pleasant. Asking to eat. Explained to patient limitations with methadone dosing as unable to verify--max of 40mg today Discussed events that led to admission. Patient reports he has been stable in [facility] treatment for a couple of months and decided to use cocaine IV. He has been working towards recovery and would like to continue. Identified numerous supports in place, including stable place to live Review of Systems Constitutional: Reports as per [facility] Mental Status Exam Mental Status Exam Patient Orientation: Person, Place, Time and Situation Level of Consciousness: Awake and Appropriate Patient Behavior: Appropriate Mood Description: Calm Affect Description: Calm Ability to Follow Directions: Excellent Judgement: Good Diagnostics Vital Signs (24Hr): Vital Signs - 24 hr 11/24/21 20:36 11/24/21 20:57 11/24/21 23:21 Temperature 99.9 F 98.2 F 98.1 F Pulse Rate 102 H 93 79 Respiratory Rate 20 16 16 Blood Pressure 185/103 H 132/78 135/72 Pulse Oximetry 95 95 98 11/25/21 05:53 11/25/21 06:06 11/25/21 06:35 Temperature 98.4 F Pulse Rate 84 Respiratory Rate 16 16 18 Blood Pressure 133/79 Pulse Oximetry 95 11/25/21 07:33 11/25/21 09:29 11/25/21 09:34 Temperature 98.1 F Pulse Rate 108 H 71 71 Respiratory Rate 18 16 18 Blood Pressure 193/110 H 122/71 111/59 L Pulse Oximetry 97 96 96 11/25/21 09:39 11/25/21 09:44 11/25/21 09:59 Temperature 98.2 F 97.3 F Pulse Rate 69 69 69 Respiratory Rate 19 17 17 Blood Pressure 119/69 117/73 109/79 Pulse Oximetry 98 98 99 11/25/21 10:14 11/25/21 10:29 11/25/21 10:45 Temperature 97.3 F 97.7 F 98.1 F Pulse Rate 75 67 69 Respiratory Rate 16 20 17 Blood Pressure 109/79 123/75 123/75 Pulse Oximetry 98 94 96 11/25/21 11:00 11/25/21 11:15 11/25/21 11:30 Temperature 98.3 F Pulse Rate 70 71 72 Respiratory Rate 20 16 16 Blood Pressure 127/79 127/79 126/75 Pulse Oximetry 96 98 98 11/25/21 11:45 11/25/21 12:00 11/25/21 12:09 Temperature Pulse Rate 78 85 Respiratory Rate 16 16 18 Blood Pressure 119/70 119/70 Pulse Oximetry 98 98 11/25/21 12:30 11/25/21 13:00 11/25/21 14:15 Temperature 96.8 F Pulse Rate 76 83 88 Respiratory Rate 19 17 20 Blood Pressure 140/89 H 126/63 150/82 H Pulse Oximetry 97 99 95 11/25/21 15:47 11/25/21 19:00 Temperature 98.4 F 98.1 F Pulse Rate 82 90 Respiratory Rate 17 17 Blood Pressure 145/78 H 152/84 H Pulse Oximetry 95 97 BMI result Body Mass Index 33.0 Labs Results: 11/25/21 13:41 11/24/21 21:53 Labs: Laboratory Results - last 48 hr 11/24/21 11/24/21 11/24/21 21:53 21:53 21:53 WBC 10.0 RBC 4.01 L Hgb 12.3 L POC Hgb (Calc) Hct 36.4 L POC Hct MCV 90.8 MCH 30.7 MCHC 33.8 RDW 14.4 Plt Count 276 MPV 10.3 Immature Gran % (Auto) 0.4 Neut % (Auto) 84.9 H Lymph % (Auto) 6.1 L [place] % (Auto) 7.6 Eos % (Auto) 0.9 Baso % (Auto) 0.1 Lymph # (Auto) 0.6 L [place] # (Auto) 0.8 Eos # (Auto) 0.1 Baso # (Auto) 0.0 Abs Immat Gran (auto) 0.04 H Absolute Neuts (auto) 8.5 H Absolute Nucleated RBC 0.000 Nucleated RBC % (auto) 0.0 PT INR POC Std Base Excess POC O2 Sat (Calc) POC ABG pO2 POC ABG Total CO2 POC Capillary pH POC Capillary pCO2 POC Cap HCO3 (Calc) POC Sodium Sodium 138 POC Potassium Potassium 3.8 Chloride 105 Carbon Dioxide 25 Anion Gap 12 BUN 15 Creatinine 0.80 Estim Creat Clear Calc 138.2 Estimated GFR > 60 POC Glucose Random Glucose 133 H Lactic Acid 1.0 Calcium 9.2 COVID-19 ([facility]) COVID-19 Clin Com Blood Type Antibody Screen 11/24/21 11/25/21 11/25/21 23:19 06:20 06:20 WBC RBC Hgb POC Hgb (Calc) Hct POC Hct MCV MCH MCHC RDW Plt Count MPV Immature Gran % (Auto) Neut % (Auto) Lymph % (Auto) [place] % (Auto) Eos % (Auto) Baso % (Auto) Lymph # (Auto) [place] # (Auto) Eos # (Auto) Baso # (Auto) Abs Immat Gran (auto) Absolute Neuts (auto) Absolute Nucleated RBC Nucleated RBC % (auto) PT 12.0 INR 1.1 POC Std Base Excess POC O2 Sat (Calc) POC ABG pO2 POC ABG Total CO2 POC Capillary pH POC Capillary pCO2 POC Cap HCO3 (Calc) POC Sodium Sodium POC Potassium Potassium Chloride Carbon Dioxide Anion Gap BUN Creatinine Estim Creat Clear Calc Estimated GFR POC Glucose Random Glucose Lactic Acid Calcium COVID-19 ([facility]) Negative COVID-19 Clin Com See Note Blood Type O Positive Antibody Screen NEGATIVE 11/25/21 11/25/21 08:27 13:41 WBC 10.5 RBC 3.61 L Hgb 11.0 L POC Hgb (Calc) 12.2 L Hct 33.3 L POC Hct 36 L MCV 92.2 MCH 30.5 MCHC 33.0 RDW 14.7 Plt Count 277 MPV 9.6 Immature Gran % (Auto) Neut % (Auto) Lymph % (Auto) [place] % (Auto) Eos % (Auto) Baso % (Auto) Lymph # (Auto) [place] # (Auto) Eos # (Auto) Baso # (Auto) Abs Immat Gran (auto) Absolute Neuts (auto) Absolute Nucleated RBC 0.000 Nucleated RBC % (auto) 0.0 PT INR POC Std Base Excess 2 POC O2 Sat (Calc) 88 POC ABG pO2 59 L POC ABG Total CO2 29 POC Capillary pH 7.34 L POC Capillary pCO2 51 H POC Cap HCO3 (Calc) 27 H POC Sodium 136 Sodium POC Potassium 5.5 H Potassium Chloride Carbon Dioxide Anion Gap BUN Creatinine Estim Creat Clear Calc Estimated GFR POC Glucose 145 H Random Glucose Lactic Acid Calcium COVID-19 ([facility]) COVID-19 Clin Com Blood Type Antibody Screen Imaging Radiology Impressions: ITS Impressions Ankle X-Ray 11/24/21 22:06 IMPRESSION: Suspected 4.5 cm abscess of the medial ankle. No underlying osseous abnormality. Finding can be further assessed with ultrasound imaging as clinically indicated. Duplex Scan Lower Extremity Artery 11/24/21 22:42 IMPRESSION: Aneurysm overlying medial malleolus. This most likely is a pseudoaneurysm. If surgical repair is being considered, would perform a CT angiogram chest prior to this. If this is not infected, in the neck can be better defined, this could be amenable to ultrasound-guided thrombin injection. Medications Medications Current Medications Acetaminophen (Acetaminophen Supp 650 Mg Supp.Rect) 650 mg [place] Q6H PRN PRN Reason: Pain, Mild (Pain Scale 1-3) Albuterol Sulfate (Albuterol Sulfate (0.083%) 2.5 Mg/3 Ml Vial.Neb) 2.5 mg INHALE ONCE PRN PRN Reason: Wheezing Amlodipine Besylate (Amlodipine Besylate 5 Mg Tablet) 5 mg PO DAILY [facility]; Protocol Hydromorphone HCl (Hydromorphone Hcl 0.5 Mg/0.5 Ml Syringe) 0.5 mg IVPUSH Q5M PRN; Protocol PRN Reason: Pain, Severe (Pain Scale 7-10) Last Admin: 11/25/21 12:09 Dose: 0.5 mg Documented by: Promethazine HCl 12.5 mg/ (Sodium Chloride) 50.5 mls @ 202 mls/hr IV ONCE PRN PRN Reason: Nausea and Vomiting Sodium Chloride (Ns) 1,000 mls @ 80 mls/hr IVCONT .[id number] [facility] Last Admin: 11/25/21 10:47 Dose: 80 mls/hr Documented by: Piperacillin Sod/Tazobactam (Sod 4.5 gm/ Sodium Chloride) 100 mls @ 200 mls/hr IV Q8H [facility] Last Infusion: 11/25/21 14:17 Dose: Infused Documented by: Vancomycin HCl 1,000 mg/ (Sodium Chloride) 270 mls @ 270 mls/hr IV Q12H [facility] Last Infusion: 11/25/21 18:31 Dose: Infused Documented by: Melatonin (Melatonin 3 Mg Tablet) 6 mg PO BEDTIME PRN PRN Reason: Sleep Methadone HCl (Methadone Hcl 20 Mg/2 Ml Oral.Conc) 10 mg PO ONCE ONE Stop: 11/25/21 20:01 Morphine Sulfate (Morphine Sulfate 2 Mg/Ml Cartridge) 2 mg IVPUSH Q4H PRN; Protocol PRN Reason: Pain, Severe (Pain Scale 7-10) Oxycodone HCl (Oxycodone Hcl Immed Release 5 Mg Tablet) 5 mg PO Q4H PRN PRN Reason: Pain, Moderate (Pain Scale 4-6 Last Admin: 11/25/21 12:09 Dose: 5 mg Documented by: Pharmacy Consult (Consult Rx Perform Med Rec) 1 each MISCELLANE ONCE PRN PRN Reason: Consult order Pharmacy Consult (Consult Rx Vancomycin Dosing) 1 each MISCELLANE DAILY PRN PRN Reason: Consult order Sodium Chloride (0.9 % Sodium Chloride Flush 3 Ml Syringe) 3 ml IVFLUSH QSHIFT [facility] Last Admin: 11/25/21 16:43 Dose: 3 ml Documented by: Allergies Allergies Allergy/AdvReac Type Severity Reaction Status Date / Time shellfish derived Allergy Unknown ANGIOEDEMA Verified 11/24/21 20:35 [SHELLFISH DERIVED] shellfish Allergy Unknown anaphylaxis Uncoded 06/04/19 00:00 Assessment & Plan Assessment & Plan (1) Opioid use disorder: Status: Acute Code(s): F11.90 - Opioid use, unspecified, uncomplicated Assessment and Plan: additional 10mg methadone this evening (total of 40mg) verify dose in AM and adjust as appropriate additional short acting opioids can be given if necessary to address withdrawal and pain sx I spent ___25___ minutes with the patient and/or on the patient floor today, greater than?50% of which was spent counseling/coordinating care.
[2021-11-25] MEDS: Melatonin 3 MG TABLET 6 MG PO (22:42)
[2021-11-26] VITALS (7 sets, daily range): BP systolic 146–179; BP diastolic 79–98; PULSE 76–88; RESP 16–18; TEMP 36–37.2; O2SAT 92–99
[2021-11-26] MEDS: vancomycin HCL 1,000 MG in 0.9 % Sodium Chloride 250 ML 270 MG IV ×2 (01:40→18:11)
[2021-11-26] MEDS: 0.9 % Sodium Chloride 1,000 ML 80 ML IVCONT ×2 (03:02→15:38)
[2021-11-26] MEDS: Piperacillin Sodium/Tazobactam 4.5 GM in 0.9 % Sodium Chloride 100 ML IV ×2 (04:41→15:28)
[2021-11-26 06:17] LABS: Basophils Percent Auto 0.1 % (0-2); Hemoglobin 9.7 g/dl (14.0-18.0); PLT CLUMP 1; SCAN SMEAR FLAG 1
[2021-11-26 06:19] LABS: Hematocrit 29.1 % (42.0-52.0); Imm Gran Abs Auto 0.06 X10*3/uL (0.00-0.03); Imm Gran Pct Auto 0.7 % (0.0-0.4); Lymphocytes Absolute Auto 0.9 X10*3/uL (1.2-4.9); Lymphocytes Percent Auto 10.5 % (20-40); MANUAL DIFF FLAG NO; Mean Corpuscular HGB Conc 33.3 g/dl (31.0-36.0); Mean Corpuscular Hemoglobin 30.6 pg (27.0-33.0); Mean Corpuscular Volume 91.8 fL (80.0-98.0); Mean Platelet Volume 10.3 fL (9.4-12.4); Monocytes Absolute Auto 0.8 X10*3/uL (0.1-1.2); Monocytes Percent Auto 8.6 % (2-11); Neutrophils Absolute Auto 7.2 x10*3/uL (2.0-8.3); Neutrophils Percent Auto 80.1 % (45-73); Red Blood Count 3.17 X10*6/uL (4.60-5.80); Red Cell Distribution Width 14.3 % (11.0-16.0)
[2021-11-26 06:47] LABS: Anion Gap 12 (12-20); Blood Urea Nitrogen 11 mg/dL (9-16); Calcium 8.5 mg/dL (8.4-10.2); Carbon Dioxide 25 mmol/L (22-29); Chloride 105 mmol/L (96-108); Creatinine Clr Calc Pharmacy 160.2; Estimated Glomerular Filt Rate > 60; Glucose Random 125 mg/dL (60-115); Potassium 4.1 mmol/L (3.3-5.1); Sodium 138 mmol/L (135-145)
--- NOTE | 2021-11-26 06:47 | HO.POSTANES ---
Post Anesthesia Evaluation Post Anesthesia Evaluation Vital Signs: Vital Signs Temp Pulse Resp BP Pulse Ox 11/26/21 03:00 96.8 F 78 18 146/79 H 96 11/25/21 23:00 98.4 F 81 18 147/77 H 96 11/25/21 19:00 98.1 F 90 17 152/84 H 97 Anesthesia: General Endotracheal-GETA Mental Status: Awake Pain Control: Satisfactory Nausea/Vomiting: None Hydration: Adequate Anesthesia-Related Issues: No Anes. Related Issues
--- NOTE | 2021-11-26 07:00 | CA_ITS ---
Transthoracic Echocardiogram Patient (Last, First, Middle): Sven Mcpherson M Gender: Male Date of : 1975 Age: 46 Procedure Date: 11/26/2021 Procedure Type: Transthoracic Echocardiogram Location: S3E Height: 177.8 cm Weight: 104.33 kg BSA: 2.22 m2 Heart Rate: bpm BP: 146 / 79 mmHg Clinical Laboratory Technologist: Referring MD: Christiano Kate DO Symptoms: GP bacteremia Study Quality: Fair ECG Rhythm: Sinus Conclusions: - Normal left ventricular cavity size. There is moderately increased left ventricular wall thickness. The left ventricular systolic function is low normal. The visually estimated ejection fraction is between 50-55%. - Normal right ventricular cavity size and systolic function. - The left atrium is moderately dilated. Findings Left Ventricle Normal left ventricular cavity size. There is moderately increased left ventricular wall thickness. The left ventricular systolic function is low normal. The visually estimated ejection fraction is between 50-55%. There is no evidence of regional wall motion abnormalities. Diastolic function is indeterminate on the basis of available data. E/E prime ratio is between 8 and 15 consistent with indeterminate filling pressures. Right Ventricle Normal right ventricular cavity size and systolic function. Atria The left atrium is moderately dilated. Aortic Valve The aortic valve was not well visualized. There is no aortic valve stenosis. There is no aortic valve regurgitation. Mitral Valve Normal mitral valve structure and function. There is trace mitral valve regurgitation. There is no mitral valve stenosis. Pulmonic Valve The pulmonic valve is likely normal. Tricuspid Valve Normal tricuspid valve structure and function. There is trace tricuspid valve regurgitation. Tricuspid regurgitation envelope is inadequate for calculation of right ventricular systolic pressure. Normal right atrial pressure. Great Vessels All visible segments of the aorta are normal in size. The visualized portions of the pulmonary artery and branches are normal. Venous The inferior vena cava is normal in size and collapses greater than 50% with inspiration. Pericardium/Pleural There is no evidence of pericardial effusion. Measurements 2D Linear Measurements IVSd: 1.35 0.6-0.9/0.6-1.0 cm LVIDd: 5.91 3.9-5.3/4.2-5.9 cm LVIDd Index: 2.66 2.4-3.2/2.2-3.1 cm/m2 LVIDs: 3.65 2.0-3.6 cm LVPWd: 1.36 0.7-1.1 cm Ao Root: 4.40 2.1-3.5 cm LA Diam: 4.60 2.7-3.8/3.0-4.0 cm LAIDs Index: 2.07 1.5-2.3 cm/m2 LV Mass: 451.44 67-162/88-224 g LV Mass Index: 203.35 43-95/49-115 g/m2 LVOT Diam: 2.30 3.0+(-)1.3 cm Mitral Valve MV Pk E: 0.96 MV PK A: 0.80 MV Decel Time: 213.00 E/A: 1.20 E'Lateral: 9.03 E'Medial: 8.92 E/E' Med: 10.70 E/E' Lat: 10.60 PHT: 62.00 MVA PHT: 3.55 Decel Rice: 4.50 Aortic Valve AoV Pk Erasto: 1.60 AoV Mn Erasto: 1.04 AoV VTI: 0.34 AoV Pk Grad: 10.00 Aov Mn Grad: 5.00 MARCIE Cont.VTI: 2.81 LVOT LVOT Pk Erasto: 1.02 LVOT Mn Erasto: 0.65 LVOT VTI: 0.23 LVOT Pk Grad: 4.00 LVOT Mn Grad: 2.00 LVOT Diam: 2.30 LVOT Area: 4.15 Diastolic Function MV Pk E: 0.96 MV Pk A: 0.80 E/A: 1.20 E'Medial: 8.92 E/E' Med: 10.70 E' Laterial: 9.03 E/E' Lat: 10.60 Tricuspid Valve TR Pk Erasto: 1.93 TR Pk Grad: 15.00 Great Vessels Aorta Ao Root-2D: 4.40 2.0-3.7 cm Ao Asc: 3.00 2.1-3.4 cm Pulmonary Valve PV Pk Erasto: 1.05 Peak PV Grad: 4.00 Updated in Other Vendor System with Status of Final Larry Lynch MD electronically signed on 11/26/2021 8:21:36 PM with status of Final
[2021-11-26 07:09] LABS: Platelet Count 239 X10*3/uL (160-400)
[2021-11-26] MEDS: amLODIPine Besylate 5 MG TABLET PO (08:42)
[2021-11-26] MEDS: methADONE HCl 20 MG/2 ML ORAL.CONC 85 MG PO (10:20)
--- NOTE | 2021-11-26 10:27 | HO.VASCPN ---
Subjective Subjective Date of Service: 11/26/21 Patient reports: no new complaints and feels better Interval history: 46-year-old gentleman postop day 1 status post resection of pseudoaneurysm and ligation of left posterior tibial artery. Pain appears to be well controlled. Appears to be doing relatively well this morning. Complains that his foot is swollen. He does have motor and sensation intact. Now for follow-up eval. Physical Exam Vital Signs: Vital Signs: Last Vital Signs Temp 98.1 F 11/26/21 07:00 Pulse 83 11/26/21 07:00 Resp 18 11/26/21 07:00 BP 146/94 H 11/26/21 07:00 Pulse Ox 94 11/26/21 08:55 BMI result Body Mass Index 33.0 Const: General: cooperative, healthy appearing and no acute distress Orientation/consciousness: oriented to person, oriented to place and oriented to time HENMT: Head: Yes normal to inspection Neck: Carotids: no bruits Chest: Chest palpation & inspection: normal inspection of the chest Resp: Effort & Inspection: normal respiratory effort and able to speak in complete sentences Auscultation: clear to auscultation bilaterally Cardio: Other: Left foot has palpable dorsalis pedis pulse. Motor and sensation of that foot is intact. Rate: regular rate Heart sounds: S1 normal heart sound present and S2 normal heart sound present GI: Inspection: Yes normal to inspection Skin: Other: Left foot dressing clean dry intact minimal drainage through dressing. Dressing otherwise intact. General skin exam: no rashes or lesions noted Neuro: General: oriented to person, oriented to place, oriented to time and CN's II-XI intact bilaterally Extrem: General: Yes normal to inspection, Yes full ROM and Yes no clubbing, cyanosis or edema Psych: Appearance: grossly normal and well kempt Speech and movement: Normal speech and movement present Affect: normal affect Progress Note: A&P Assessment and plan (1) Pseudoaneurysm: Status: Acute Assessment and Plan: Patient is status post resection of pseudoaneurysm. He appears to be doing relatively well. Foot is stable. Will need to be observed through the weekend to ensure that the foot is viable. In addition I have started him on subQ heparin for DVT prophylaxis. He does have positive blood cultures and will require antibiotics for that. Appreciate Medicine follow-up and will have Infectious Disease follow up as well. I did have an extensive discussion with the patient regarding risk factor modification in particular stopping use of IV drugs. He reports recurrent use of speed ball which is quite dangerous and may potentially be a cause for limb loss or even mortality for him. Once again will continue with IV antibiotics. As edema in the foot starts to improve will start ambulation within the next day or 2. Fall Risk Details Current Medications: Current Medications Acetaminophen (Acetaminophen Supp 650 Mg Supp.Rect) 650 mg [place] Q6H PRN PRN Reason: Pain, Mild (Pain Scale 1-3) Albuterol Sulfate (Albuterol Sulfate (0.083%) 2.5 Mg/3 Ml Vial.Neb) 2.5 mg INHALE ONCE PRN PRN Reason: Wheezing Amlodipine Besylate (Amlodipine Besylate 5 Mg Tablet) 5 mg PO DAILY COUNT INCLUDES [facility]; Protocol Last Admin: 11/26/21 08:42 Dose: 5 mg Documented by: Heparin Sodium (Porcine) (Heparin Sodium,Porcine 5,000 Unit/Ml Vial) 5,000 unit SUBCUT Q8H COUNT INCLUDES THE [facility] Hydromorphone HCl (Hydromorphone Hcl 0.5 Mg/0.5 Ml Syringe) 0.5 mg IVPUSH Q5M PRN; Protocol PRN Reason: Pain, Severe (Pain Scale 7-10) Last Admin: 11/25/21 12:09 Dose: 0.5 mg Documented by: Promethazine HCl 12.5 mg/ (Sodium Chloride) 50.5 mls @ 202 mls/hr IV ONCE PRN PRN Reason: Nausea and Vomiting Sodium Chloride (Ns) 1,000 mls @ 80 mls/hr IVCONT .[id number] COUNT INCLUDES THE [facility] Last Admin: 11/26/21 03:02 Dose: 80 mls/hr Documented by: Piperacillin Sod/Tazobactam (Sod 4.5 gm/ Sodium Chloride) 100 mls @ 200 mls/hr IV Q8H COUNT INCLUDES THE [facility] Last Infusion: 11/26/21 05:12 Dose: Infused Documented by: Vancomycin HCl 1,000 mg/ (Sodium Chloride) 270 mls @ 270 mls/hr IV Q12H COUNT INCLUDES THE [facility] Last Infusion: 11/26/21 03:02 Dose: Infused Documented by: Melatonin (Melatonin 3 Mg Tablet) 6 mg PO BEDTIME PRN PRN Reason: Sleep Last Admin: 11/25/21 22:42 Dose: 6 mg Documented by: Methadone HCl (Methadone Hcl 20 Mg/2 Ml Oral.Conc) 85 mg PO DAILY COUNT INCLUDES THE [facility] Last Admin: 11/26/21 10:20 Dose: 85 mg Documented by: Morphine Sulfate (Morphine Sulfate 2 Mg/Ml Cartridge) 2 mg IVPUSH Q4H PRN; Protocol PRN Reason: Pain, Severe (Pain Scale 7-10) Oxycodone HCl (Oxycodone Hcl Immed Release 5 Mg Tablet) 5 mg PO Q4H PRN PRN Reason: Pain, Moderate (Pain Scale 4-6 Last Admin: 11/25/21 12:09 Dose: 5 mg Documented by: Pharmacy Consult (Consult Rx Perform Med Rec) 1 each MISCELLANE ONCE PRN PRN Reason: Consult order Pharmacy Consult (Consult Rx Vancomycin Dosing) 1 each MISCELLANE DAILY PRN PRN Reason: Consult order Sodium Chloride (0.9 % Sodium Chloride Flush 3 Ml Syringe) 3 ml IVFLUSH QSHIFT COUNT INCLUDES THE [facility] Last Admin: 11/26/21 08:43 Dose: Not Given Documented by: Time Spent With Patient Time: Total time spent is greater than 50% in coordination of care (as documented) at patient's floor/unit and/or counseling patient: Time with patient: 15 - 24 minutes Procedures Date of Service Date of Service: 11/26/21 Quality Stroke Does the patient have a stroke diagnosis?: No VTE Prior VTE?: No VTE Risk Level:: Surgical - very high VTE Device Contraindication: Treatment Not Indicated VTE Drug Contraindication: Treatment Not Indicated
[2021-11-26] MEDS: Heparin Sodium,Porcine 5,000 UNIT/ML VIAL 5000 UNIT SUBCUT ×2 (11:29→18:11)
--- NOTE | 2021-11-26 14:23 | HO.MIDLINE ---
PICC Line Insertion MIDLINE INSERTION Diagnosis: BACTEREMIA Indication: NEEDS IV ACCESS FOR IV MEDS/FLUIDS Pertinent Labs: REVIEWED; CLEARANCE OBTAINED FOR MIDLINE INSERTION AT THIS TIME D/T NEED FOR IV ACCESS Technique: Using sterile technique including cap and mask, glove and drape, the LEFT arm was prepped and draped in the usual sterile fashion of full barrier technique with CHG. Using ultrasound guidance, BASILIC vein access was obtained IN SINGLE ATTEMPT BY THIS RN. A SINGLE LUMEN, NON-PASV, (20G X 8CM) MIDLINE was positioned. The procedure was performed in S-272. Ultrasound was used to document vein patency and for needle entry. A formal ultrasound picture was recorded. [employer] has released the line for use and it is currently dressed with a StatLock, Tegaderm, and CHG disc. Verification has been performed for blood return and line patency. Arm Circumference: 36 CM Equipment: [employer] POWERGLIDE PRO Catheter Type: SINGLE LUMEN, NONPASV, (20G X 8CM) Lot #: [id number]
--- NOTE | 2021-11-26 14:33 | P.PNIM_ITS ---
Subjective Subjective Date of Service: 11/26/21 Review of Systems Denies CP Denies SOB Denies N/V/D Physical Exam Vital Signs: Vital Signs: Last Vital Signs Temp 97.6 F 11/26/21 11:00 Pulse 76 11/26/21 11:00 Resp 18 11/26/21 11:00 BP 149/88 H 11/26/21 11:00 Pulse Ox 95 11/26/21 11:00 BMI result Body Mass Index 33.0 Const: Other: NAD post op; minimal discomfort Resp: Other: Clear A/P. Scattered expiratory wheezes lower lobes Cardio: Other: -S4 +S1/S2 -S3 MRG GI: Other: soft NT/ND NABS x 4 quads Extrem: Other: LLE DAMIAN wrap dsg c/d/I Objective Data Active Medications Acetaminophen (Acetaminophen Supp 650 Mg Supp.Rect) 650 mg [place] Q6H PRN PRN Reason: Pain, Mild (Pain Scale 1-3) Albuterol Sulfate (Albuterol Sulfate (0.083%) 2.5 Mg/3 Ml Vial.Neb) 2.5 mg INHALE ONCE PRN PRN Reason: Wheezing Amlodipine Besylate (Amlodipine Besylate 5 Mg Tablet) 5 mg PO DAILY [facility]; Prot ocol Last Admin: 11/26/21 08:42 Dose: 5 mg Documented by: KRISTEN Heparin Sodium (Porcine) (Heparin Sodium,Porcine 5,000 Unit/Ml Vial) 5,000 unit SUBCUT Q8H [facility] Last Admin: 11/26/21 11:29 Dose: 5,000 unit Documented by: KRISTEN Hydromorphone HCl (Hydromorphone Hcl 0.5 Mg/0.5 Ml Syringe) 0.5 mg IVPUSH Q5M PRN; Protocol PRN Reason: Pain, Severe (Pain Scale 7-10) Last Admin: 11/25/21 12:09 Dose: 0.5 mg Documented by: JENNIFER Promethazine HCl 12.5 mg/ (Sodium Chloride) 50.5 mls @ 202 mls/hr IV ONCE PRN PRN Reason: Nausea and Vomiting Sodium Chloride (Ns) 1,000 mls @ 80 mls/hr IVCONT .[id number] [facility] Last Admin: 11/26/21 11:28 Dose: Not Given Documented by: KRISTEN Non-Admin Reason: IV Running Piperacillin Sod/Tazobactam (Sod 4.5 gm/ Sodium Chloride) 100 mls @ 200 mls/hr IV Q8H [facility] Last Infusion: 11/26/21 05:12 Dose: 0 mls/hr Documented by: VANESSA Vancomycin HCl 1,000 mg/ (Sodium Chloride) 270 mls @ 270 mls/hr IV Q12H [facility] Last Infusion: 11/26/21 03:02 Dose: 0 mls/hr Documented by: VANESSA Melatonin (Melatonin 3 Mg Tablet) 6 mg PO BEDTIME PRN PRN Reason: Sleep Last Admin: 11/25/21 22:42 Dose: 6 mg Documented by: VANESSA Methadone HCl (Methadone Hcl 20 Mg/2 Ml Oral.Conc) 85 mg PO DAILY [facility] Last Admin: 11/26/21 10:20 Dose: 85 mg Documented by: KRISTEN Morphine Sulfate (Morphine Sulfate 2 Mg/Ml Cartridge) 2 mg IVPUSH Q4H PRN; Protocol PRN Reason: Pain, Severe (Pain Scale 7-10) Oxycodone HCl (Oxycodone Hcl Immed Release 5 Mg Tablet) 5 mg PO Q4H PRN PRN Reason: Pain, Moderate (Pain Scale 4-6 Last Admin: 11/25/21 12:09 Dose: 5 mg Documented by: JENNIFER Pharmacy Consult (Consult Rx Perform Med Rec) 1 each MISCELLANE ONCE PRN PRN Reason: Consult order Pharmacy Consult (Consult Rx Vancomycin Dosing) 1 each MISCELLANE DAILY PRN PRN Reason: Consult order Sodium Chloride (0.9 % Sodium Chloride Flush 3 Ml Syringe) 3 ml IVFLUSH QSHIFT [facility] Last Admin: 11/26/21 08:43 Dose: Not Given Documented by: KRISTEN Non-Admin Reason: IV Running Labs CBC & Chem 7: 11/26/21 06:03 11/26/21 06:03 Labs: Laboratory Results - last 24 hr 11/25/21 11/26/21 11/26/21 08:27 06:03 06:03 POC Hgb (Calc) 12.2 L POC Hct 36 L MCV 91.8 MCH 30.6 MCHC 33.3 RDW 14.3 Plt Count 239 MPV 10.3 Immature Gran % (Auto) 0.7 H Neut % (Auto) 80.1 H Lymph % (Auto) 10.5 L [place] % (Auto) 8.6 Eos % (Auto) 0.0 Baso % (Auto) 0.1 Lymph # (Auto) 0.9 L [place] # (Auto) 0.8 Eos # (Auto) 0.0 Baso # (Auto) 0.0 Abs Immat Gran (auto) 0.06 H Absolute Neuts (auto) 7.2 Absolute Nucleated RBC 0.000 Nucleated RBC % (auto) 0.0 POC Std Base Excess 2 POC O2 Sat (Calc) 88 POC ABG pO2 59 L POC ABG Total CO2 29 POC Capillary pH 7.34 L POC Capillary pCO2 51 H POC Cap HCO3 (Calc) 27 H POC Sodium 136 POC Potassium 5.5 H Anion Gap 12 Estim Creat Clear Calc 160.2 Estimated GFR > 60 POC Glucose 145 H Random Glucose 125 H Calcium 8.5 D Microbiology Microbiology Results: Microbiology 11/24/21 21:52 Blood Culture - Preliminary Blood - Venous Staphylococcus aureus 11/24/21 21:52 Blood Culture - Preliminary Blood - Venous Staphylococcus aureus Assessment and Plan (1) Bacteremia: Status: Acute (2) Pseudoaneurysm: Status: Acute (3) Opioid use disorder: Status: Acute Plan 46YOm S/P post Tibial artery ligation secondary to pseudoaneurysm from IVDA 1. Pseudoaneurysm secondary to IVDA - as per Dr White 2. GPC bacteremia - Vanco/Zosyn pending ID of organism and sensitivities -daily labs - Midline placed today secondary to needed access. Peripherals tenuous and thus being least invasive option 3. Opiate Abuse( states daily Methadone- - Addiction medicine consult Full Code Lovenox Quality Stroke Does the patient have a stroke diagnosis?: No VTE Prior VTE?: No VTE Risk Level:: Surgical - very high VTE Device Contraindication: Treatment Not Indicated VTE Drug Contraindication: Treatment Not Indicated
--- NOTE | 2021-11-26 14:50 | MHC.CM.PN ---
PATIENT LIVES WITH HIS MOTHER/NEW HCP (TO BE COMPLETED AND UPLOADED INTO [facility]) HE HAS NO PCP AND IS NOT COVID VACCINATED. HE DOES REPORT THAT HIS MOTHER HAS SCHEDULED HIM FOR HIS FIRST VACCINE BECAUSE HE HAS NO PCP, HE WILL NEED A SNF STAY FOR IV ABX. CASE MANAGEMENT FOLLOWING FOR NEGATIVE CULTURES. REFERRAL TO [facility].
--- NOTE | 2021-11-26 15:09 | PC.NURSE ---
Skin/ wound assessment completed. Patient has a surgical wound to left ankle for vein/clot repair from IVDU. Sutures in place, clean incision, xeroform over incision covered with non woven gauze and roll gauze.
--- NOTE | 2021-11-26 15:10 | MHC.CLN ---
NUTRITION CONSULT FOR POOR APPETITE. PATIENT REPORTS THAT HADN'T EATEN WELL FOR ABOUT 11 DAYS PRIOR TO ADMISSION AND LOST 8#. WEIGHT LOSS NOT SIGNIFICANT. REPORTS THAT IS EATING BETTER NOW. NO ADDITIONAL NUTRITION INTERVENTIONS BASED ON CURRENT GOOD INTAKE.
--- NOTE | 2021-11-26 16:09 | HO.PM.IMPN ---
Subjective Subjective Date of Service: 11/26/21 Review of Systems Denies CP Denies SOB Denies N/V/D Physical Exam Vital Signs: Vital Signs: Last Vital Signs Temp 98.9 F 11/26/21 15:00 Pulse 88 11/26/21 15:00 Resp 18 11/26/21 15:00 BP 164/89 H 11/26/21 15:00 Pulse Ox 96 11/26/21 15:00 BMI result Body Mass Index 33.0 Const: Other: NAD post op; minimal discomfort Resp: Other: Clear A/P. Scattered expiratory wheezes lower lobes Cardio: Other: -S4 +S1/S2 -S3 MRG GI: Other: soft NT/ND NABS x 4 quads Extrem: Other: LLE DAMIAN wrap dsg c/d/I Objective Data Active Medications Acetaminophen (Acetaminophen Supp 650 Mg Supp.Rect) 650 mg [place] Q6H PRN PRN Reason: Pain, Mild (Pain Scale 1-3) Albuterol Sulfate (Albuterol Sulfate (0.083%) 2.5 Mg/3 Ml Vial.Neb) 2.5 mg INHALE ONCE PRN PRN Reason: Wheezing Amlodipine Besylate (Amlodipine Besylate 5 Mg Tablet) 5 mg PO DAILY [facility]; Protocol Last Admin: 11/26/21 08:42 Dose: 5 mg Documented by: KRISTEN Heparin Sodium (Porcine) (Heparin Sodium,Porcine 5,000 Unit/Ml Vial) 5,000 unit SUBCUT Q8H [facility] Last Admin: 11/26/21 11:29 Dose: 5,000 unit Documented by: KRISTEN Hydromorphone HCl (Hydromorphone Hcl 0.5 Mg/0.5 Ml Syringe) 0.5 mg IVPUSH Q5M PRN; Protocol PRN Reason: Pain, Severe (Pain Scale 7-10) Last Admin: 11/25/21 12:09 Dose: 0.5 mg Documented by: JENNIFER Promethazine HCl 12.5 mg/ (Sodium Chloride) 50.5 mls @ 202 mls/hr IV ONCE PRN PRN Reason: Nausea and Vomiting Sodium Chloride (Ns) 1,000 mls @ 80 mls/hr IVCONT .[id number] [facility] Last Admin: 11/26/21 15:38 Dose: 80 mls/hr Documented by: KRISTEN Piperacillin Sod/Tazobactam (Sod 4.5 gm/ Sodium Chloride) 100 mls @ 200 mls/hr IV Q8H [facility] Last Admin: 11/26/21 15:28 Dose: 200 mls/hr Documented by: KRISTEN Vancomycin HCl 1,000 mg/ (Sodium Chloride) 270 mls @ 270 mls/hr IV Q12H [facility] Last Infusion: 11/26/21 03:02 Dose: 0 mls/hr Documented by: VANESSA Melatonin (Melatonin 3 Mg Tablet) 6 mg PO BEDTIME PRN PRN Reason: Sleep Last Admin: 11/25/21 22:42 Dose: 6 mg Documented by: VANESSA Methadone HCl (Methadone Hcl 20 Mg/2 Ml Oral.Conc) 85 mg PO DAILY [facility] Last Admin: 11/26/21 10:20 Dose: 85 mg Documented by: KRISTEN Morphine Sulfate (Morphine Sulfate 2 Mg/Ml Cartridge) 2 mg IVPUSH Q4H PRN; Protocol PRN Reason: Pain, Severe (Pain Scale 7-10) Oxycodone HCl (Oxycodone Hcl Immed Release 5 Mg Tablet) 5 mg PO Q4H PRN PRN Reason: Pain, Moderate (Pain Scale 4-6 Last Admin: 11/25/21 12:09 Dose: 5 mg Documented by: JENNIFER Pharmacy Consult (Consult Rx Perform Med Rec) 1 each MISCELLANE ONCE PRN PRN Reason: Consult order Pharmacy Consult (Consult Rx Vancomycin Dosing) 1 each MISCELLANE DAILY PRN PRN Reason: Consult order Sodium Chloride (0.9 % Sodium Chloride Flush 3 Ml Syringe) 3 ml IVFLUSH QSHIFT [facility] Last Admin: 11/26/21 08:43 Dose: Not Given Documented by: KRISTEN Non-Admin Reason: IV Running Labs CBC & Chem 7: 11/26/21 06:03 11/26/21 06:03 Labs: Laboratory Results - last 24 hr 11/26/21 11/26/21 06:03 06:03 MCV 91.8 MCH 30.6 MCHC 33.3 RDW 14.3 Plt Count 239 MPV 10.3 Immature Gran % (Auto) 0.7 H Neut % (Auto) 80.1 H Lymph % (Auto) 10.5 L [place] % (Auto) 8.6 Eos % (Auto) 0.0 Baso % (Auto) 0.1 Lymph # (Auto) 0.9 L [place] # (Auto) 0.8 Eos # (Auto) 0.0 Baso # (Auto) 0.0 Abs Immat Gran (auto) 0.06 H Absolute Neuts (auto) 7.2 Absolute Nucleated RBC 0.000 Nucleated RBC % (auto) 0.0 Anion Gap 12 Estim Creat Clear Calc 160.2 Estimated GFR > 60 Random Glucose 125 H Calcium 8.5 D Microbiology Microbiology Results: Microbiology 11/24/21 21:52 Blood Culture - Preliminary Blood - Venous Staphylococcus aureus 11/24/21 21:52 Blood Culture - Preliminary Blood - Venous Staphylococcus aureus Assessment and Plan Plan 46YOm S/P post Tibial artery ligation secondary to pseudoaneurysm from IVDA 1. Pseudoaneurysm secondary to IVDA - as per Dr White 2. GPC bacteremia - Vanco/Zosyn pending ID of organism and sensitivities -daily labs - Midline placed today secondary to needed access. Peripherals tenuous and thus being least invasive option 3. Opiate Abuse( states daily Methadone- - Addiction medicine consult Full Code Lovenox Quality Stroke Does the patient have a stroke diagnosis?: No VTE Prior VTE?: No VTE Risk Level:: Surgical - very high VTE Device Contraindication: Treatment Not Indicated VTE Drug Contraindication: Treatment Not Indicated
[2021-11-26 16:20] LABS: Vancomycin Trough < 3.0 mcg/mL (10.0-20.0)
--- NOTE | 2021-11-26 16:50 | W.PM.IDCN ---
History of Present Illness Data of Consult Service Date: 11/26/21 Requesting physician: Christiano Kate Primary Care Provider: Unknown Physician HPI Reason for consult: bacteremia He has injected heroin and cocaine five days prior to admission into left posterior tibial artery He feels feverish and has chills He has 2/2 bacteremia staph aureus Review of Systems Review of Systems: Yes all other systems are reviewed and are negative PMFSH Past Medical History Medical History Active substance abuse Family History Family history: reviewed and not pertinent Social History Social History Household Members: Family Housing: House Do you presently have visiting nurse or other home services: Yes (for mother) Alcohol intake: never Patient Tobacco Use Status: Current everyday Tobacco user Tobacco use type: Cigarette Cigarettes Per Day: 3 e-Cigarette/Vaping Use: Currently Using Substance Use Type: Crack/Cocaine, Heroin and Marijuana service: No Current occupational status: disabled Meds Allergies Allergy/AdvReac Type Severity Reaction Status Date / Time shellfish derived Allergy Unknown ANGIOEDEMA Verified 12/14/21 13:50 [SHELLFISH DERIVED] shellfish Allergy Unknown anaphylaxis Uncoded 12/14/21 13:50 Active Medications: Current Medications Acetaminophen (Acetaminophen Supp 650 Mg Supp.Rect) 650 mg [place] Q6H PRN PRN Reason: Pain, Mild (Pain Scale 1-3) Albuterol Sulfate (Albuterol Sulfate (0.083%) 2.5 Mg/3 Ml Vial.Neb) 2.5 mg INHALE ONCE PRN PRN Reason: Wheezing Amlodipine Besylate (Amlodipine Besylate 5 Mg Tablet) 5 mg PO DAILY [facility]; Protocol Last Admin: 11/26/21 08:42 Dose: 5 mg Documented by: Heparin Sodium (Porcine) (Heparin Sodium,Porcine 5,000 Unit/Ml Vial) 5,000 unit SUBCUT Q8H [facility] Last Admin: 11/26/21 11:29 Dose: 5,000 unit Documented by: Hydromorphone HCl (Hydromorphone Hcl 0.5 Mg/0.5 Ml Syringe) 0.5 mg IVPUSH Q5M PRN; Protocol PRN Reason: Pain, Severe (Pain Scale 7-10) Last Admin: 11/25/21 12:09 Dose: 0.5 mg Documented by: Promethazine HCl 12.5 mg/ (Sodium Chloride) 50.5 mls @ 202 mls/hr IV ONCE PRN PRN Reason: Nausea and Vomiting Sodium Chloride (Ns) 1,000 mls @ 80 mls/hr IVCONT .[id number] [facility] Last Admin: 11/26/21 15:38 Dose: 80 mls/hr Documented by: Vancomycin HCl 1,000 mg/ (Sodium Chloride) 270 mls @ 270 mls/hr IV Q8H [facility] Melatonin (Melatonin 3 Mg Tablet) 6 mg PO BEDTIME PRN PRN Reason: Sleep Last Admin: 11/25/21 22:42 Dose: 6 mg Documented by: Methadone HCl (Methadone Hcl 20 Mg/2 Ml Oral.Conc) 85 mg PO DAILY [facility] Last Admin: 11/26/21 10:20 Dose: 85 mg Documented by: Morphine Sulfate (Morphine Sulfate 2 Mg/Ml Cartridge) 2 mg IVPUSH Q4H PRN; Protocol PRN Reason: Pain, Severe (Pain Scale 7-10) Oxycodone HCl (Oxycodone Hcl Immed Release 5 Mg Tablet) 5 mg PO Q4H PRN PRN Reason: Pain, Moderate (Pain Scale 4-6 Last Admin: 11/25/21 12:09 Dose: 5 mg Documented by: Pharmacy Consult (Consult Rx Perform Med Rec) 1 each MISCELLANE ONCE PRN PRN Reason: Consult order Pharmacy Consult (Consult Rx Vancomycin Dosing) 1 each MISCELLANE DAILY PRN PRN Reason: Consult order Sodium Chloride (0.9 % Sodium Chloride Flush 3 Ml Syringe) 3 ml IVFLUSH QSHIFT [facility] Last Admin: 11/26/21 16:24 Dose: Not Given Documented by: Home Medications Medication Instructions Recorded Confirmed Last Taken Type melatonin 5 mg tablet mg PO 12/14/21 Unknown History Physical Exam Vital Signs: Vital Signs: Last Vital Signs Temp 98.9 F 11/26/21 15:00 Pulse 88 11/26/21 15:00 Resp 18 11/26/21 15:00 BP 164/89 H 11/26/21 15:00 Pulse Ox 96 11/26/21 15:00 BMI result Body Mass Index 33.0 Const: General: cooperative HENMT: Head: Yes normal to inspection Mouth: Normal oral and palatal mucosa present Resp: Effort & Inspection: normal respiratory effort Cardio: Rate: regular rate Rhythm: regular rhythm GI: Palpation (GI): Soft to palpation and nontender Extrem: Other: wrapped left leg with erythema below bandage ending at ankle Results Labs CBC & Chem 7: 11/29/21 05:23 11/30/21 08:25 Labs: Short CBC 11/26/21 Range/Units 06:03 WBC 9.0 (4.8-10.8) X10*3/uL Hgb 9.7 L (14.0-18.0) g/dl Hct 29.1 L (42.0-52.0) % Plt Count 239 (160-400) X10*3/uL BMP 11/26/21 06:03 Sodium 138 Potassium 4.1 Chloride 105 Carbon Dioxide 25 BUN 11 Creatinine 0.69 Calcium 8.5 D Microbiology Microbiology Results: Microbiology 11/24/21 21:52 Blood - Venous Blood Culture - Preliminary Staphylococcus aureus 11/24/21 21:52 Blood - Venous Blood Culture - Preliminary Staphylococcus aureus Assessment and Plan (1) Bacteremia: Status: Acute He has staph bacteremia likely from left leg injection site He has had Vascular surgery to area He may have endocarditis (2) Opioid use disorder: Status: Acute (3) Intravenous drug abuse: Status: Resolved (4) Cellulitis: Qualifiers: Laterality: left Site of cellulitis: extremity Site of cellulitis of extremity: lower extremity Qualified Code(s): L03.116 - Cellulitis of left lower limb Status: Acute (5) Pseudoaneurysm: Status: Resolved Plan Vancomycin for now in case MRSA He needs echo if not done He will need placement and line for four weeks IV antibiotics
[2021-11-26] MEDS: oxyCODONE HCl Immed Release 5 MG TABLET PO (22:40)
[2021-11-27] VITALS (7 sets, daily range): BP systolic 158–180; BP diastolic 82–106; PULSE 73–79; RESP 18–20; TEMP 36–36.8; O2SAT 94–98
[2021-11-27] MEDS: Morphine Sulfate 2 MG/ML CARTRIDGE IVPUSH (00:03)
[2021-11-27] MEDS: vancomycin HCL 1,000 MG in 0.9 % Sodium Chloride 250 ML 270 MG IV ×2 (03:24→12:02)
[2021-11-27] MEDS: 0.9 % Sodium Chloride 1,000 ML 80 ML IVCONT ×2 (05:27→19:27)
[2021-11-27] MEDS: Heparin Sodium,Porcine 5,000 UNIT/ML VIAL 5000 UNIT SUBCUT ×3 (05:31→19:27)
[2021-11-27 06:34] LABS: Basophils Percent Auto 0.5 % (0-2); Eosinophils Absolute Auto 0.1 X10*3/uL (0.0-0.4); Eosinophils Percent Auto 0.8 % (0-4); Hematocrit 32.8 % (42.0-52.0); Hemoglobin 10.9 g/dl (14.0-18.0); Imm Gran Abs Auto 0.11 X10*3/uL (0.00-0.03); Imm Gran Pct Auto 1.7 % (0.0-0.4); Lymphocytes Absolute Auto 1.7 X10*3/uL (1.2-4.9); Lymphocytes Percent Auto 26.7 % (20-40); MANUAL DIFF FLAG SCAN; Mean Corpuscular HGB Conc 33.2 g/dl (31.0-36.0); Mean Corpuscular Hemoglobin 30.3 pg (27.0-33.0); Mean Corpuscular Volume 91.1 fL (80.0-98.0); Mean Platelet Volume 9.9 fL (9.4-12.4); Monocytes Absolute Auto 0.5 X10*3/uL (0.1-1.2); Neutrophils Percent Auto 62.3 % (45-73); PLT CLUMP 1; SCAN SMEAR FLAG 1
[2021-11-27 06:51] LABS: Alanine Aminotransferase 45 U/L (0-40); Albumin Level 3.6 g/dL (3.5-5.0); Alkaline Phosphatase 92 U/L (39-117); Anion Gap 14 (12-20); Aspartate Amino Transferase 50 U/L (5-37); Bilirubin Total 0.4 mg/dL (0.0-1.0); Blood Urea Nitrogen 11 mg/dL (9-16); Calcium 9.2 mg/dL (8.4-10.2); Carbon Dioxide 24 mmol/L (22-29); Chloride 102 mmol/L (96-108); Creatinine Clr Calc Pharmacy 160.2; Estimated Glomerular Filt Rate > 60; Glucose Fasting 83 mg/dL (60-99); Potassium 4.3 mmol/L (3.3-5.1); Sodium 136 mmol/L (135-145); Total Protein 7.1 g/dL (6.5-8.0)
[2021-11-27 07:29] LABS: Platelet Count 292 X10*3/uL (160-400); White Blood Count 6.5 X10*3/uL (4.8-10.8)
[2021-11-27 07:30] LABS: SLIDE REVIEW VERIFIED
[2021-11-27] MEDS: amLODIPine Besylate 5 MG TABLET PO (08:01)
[2021-11-27] MEDS: methADONE HCl 20 MG/2 ML ORAL.CONC 85 MG PO (08:01)
--- NOTE | 2021-11-27 11:23 | P.PNIM_ITS ---
Subjective Subjective Date of Service: 11/27/21 Interval History: No acute issues overnight Review of Systems Denies CP Denies SOB Denies N/V/D Physical Exam Vital Signs: Vital Signs: Last Vital Signs Temp 98.3 F 11/27/21 07:00 Pulse 73 11/27/21 07:00 Resp 20 11/27/21 07:00 BP 169/97 H 11/27/21 07:00 Pulse Ox 95 11/27/21 09:00 BMI result Body Mass Index 33.0 Const: Other: No acute distress Resp: Other: Clear A/P Cardio: Other: -S4 + S1/S2 -S3 MRG Extrem: Other: CMS LLE intact Objective Data Active Medications Acetaminophen (Acetaminophen Supp 650 Mg Supp.Rect) 650 mg [place] Q6H PRN PRN Reason: Pain, Mild (Pain Scale 1-3) Albuterol Sulfate (Albuterol Sulfate (0.083%) 2.5 Mg/3 Ml Vial.Neb) 2.5 mg INHALE ONCE PRN PRN Reason: Wheezing Amlodipine Besylate (Amlodipine Besylate 5 Mg Tablet) 5 mg PO DAILY [facility]; Protocol Last Admin: 11/27/21 08:01 Dose: 5 mg Documented by: JOSE ANTONIO Heparin Sodium (Porcine) (Heparin Sodium,Porcine 5,000 Unit/Ml Vial) 5,000 unit SUBCUT Q8H [facility] Last Admin: 11/27/21 05:31 Dose: 5,000 unit Documented by: JOSE ANTONIO Hydromorphone HCl (Hydromorphone Hcl 0.5 Mg/0.5 Ml Syringe) 0.5 mg IVPUSH Q5M PRN; Protocol PRN Reason: Pain, Severe (Pain Scale 7-10) Last Admin: 11/25/21 12:09 Dose: 0.5 mg Documented by: JENNIFER Promethazine HCl 12.5 mg/ (Sodium Chloride) 50.5 mls @ 202 mls/hr IV ONCE PRN PRN Reason: Nausea and Vomiting Sodium Chloride (Ns) 1,000 mls @ 80 mls/hr IVCONT .[id number] [facility] Last Admin: 11/27/21 05:27 Dose: 80 mls/hr Documented by: JOSE ANTONIO Vancomycin HCl 1,000 mg/ (Sodium Chloride) 270 mls @ 270 mls/hr IV Q8H [facility] Last Infusion: 11/27/21 05:31 Dose: 0 mls/hr Documented by: JOSE ANTONIO Melatonin (Melatonin 3 Mg Tablet) 6 mg PO BEDTIME PRN PRN Reason: Sleep Last Admin: 11/25/21 22:42 Dose: 6 mg Documented by: VANESSA Methadone HCl (Methadone Hcl 20 Mg/2 Ml Oral.Conc) 85 mg PO DAILY [facility] Last Admin: 11/27/21 08:01 Dose: 85 mg Documented by: JOSE ANTONIO Morphine Sulfate (Morphine Sulfate 2 Mg/Ml Cartridge) 2 mg IVPUSH Q4H PRN; Pro tocol PRN Reason: Pain, Severe (Pain Scale 7-10) Last Admin: 11/27/21 00:03 Dose: 2 mg Documented by: JOSE ANTONIO Oxycodone HCl (Oxycodone Hcl Immed Release 5 Mg Tablet) 5 mg PO Q4H PRN PRN Reason: Pain, Moderate (Pain Scale 4-6 Last Admin: 11/26/21 22:40 Dose: 5 mg Documented by: JOSE ANTONIO Pharmacy Consult (Consult Rx Perform Med Rec) 1 each MISCELLANE ONCE PRN PRN Reason: Consult order Pharmacy Consult (Consult Rx Vancomycin Dosing) 1 each MISCELLANE DAILY PRN PRN Reason: Consult order Sodium Chloride (0.9 % Sodium Chloride Flush 3 Ml Syringe) 3 ml IVFLUSH QSHIFT [facility] Last Admin: 11/27/21 07:21 Dose: Not Given Documented by: JOSE ANTONIO Non-Admin Reason: IV Running Labs CBC & Chem 7: 11/27/21 05:43 11/27/21 05:43 Labs: Laboratory Results - last 24 hr 11/26/21 11/27/21 11/27/21 15:39 05:43 05:43 MCV 91.1 MCH 30.3 MCHC 33.2 RDW 14.0 Plt Count 292 MPV 9.9 Immature Gran % (Auto) 1.7 H Neut % (Auto) 62.3 Lymph % (Auto) 26.7 [place] % (Auto) 8.0 Eos % (Auto) 0.8 Baso % (Auto) 0.5 Lymph # (Auto) 1.7 [place] # (Auto) 0.5 Eos # (Auto) 0.1 Baso # (Auto) 0.0 Abs Immat Gran (auto) 0.11 H Absolute Neuts (auto) 4.0 Absolute Nucleated RBC 0.000 Nucleated RBC % (auto) 0.0 Smear Tech's Comments VERIFIED Anion Gap 14 Estim Creat Clear Calc 160.2 Estimated GFR > 60 Fasting Glucose 83 Calcium 9.2 D Total Bilirubin 0.4 AST 50 H ALT 45 H Alkaline Phosphatase 92 Total Protein 7.1 Albumin 3.6 Vancomycin Trough < 3.0 L Microbiology Microbiology Results: Microbiology 11/24/21 21:52 Blood Culture - Final Blood - Venous Staphylococcus aureus 11/24/21 21:52 Blood Culture - Final Blood - Venous Staphylococcus aureus Assessment and Plan (1) Pseudoaneurysm: Status: Acute (2) Bacteremia: Status: Acute Assessment and Plan: 46YOm S/P post Tibial artery ligation secondary to pseudoaneurysm from IVDA 1. Pseudoaneurysm secondary to IVDA ? - as per Dr White 2. GPC bacteremia ? - Vanco/Zosyn x 4 weeks (01/10) ? -daily labs ? - Midline placed today secondary to needed access. Peripherals tenuous and thus being least invasive option 3. Opiate Abuse( states daily Methadone- ? - Addiction medicine consult Quality Stroke Does the patient have a stroke diagnosis?: No VTE Prior VTE?: No VTE Risk Level:: Surgical - very high VTE Device Contraindication: Treatment Not Indicated VTE Drug Contraindication: Treatment Not Indicated
[2021-11-27] MEDS: oxyCODONE HCl Immed Release 5 MG TABLET PO (16:21)
[2021-11-27 17:44] LABS: Vancomycin Random 11.5 mcg/mL (15-20)
--- NOTE | 2021-11-27 17:59 | PHA.PROG ---
Admission Date/Time: November 25, 2021 09:21 Indication: Weight in k.512 kg Adjusted body weight in Kg: [place] body weight in Kg: Obesity Dosing Indication % IBW: Serum Creatinine - Last 168 Hours 11/24/21 11/26/21 11/27/21 21:53 06:03 05:43 Creatinine 0.80 0.69 0.69 Estimated CrCl and GFR - Last 168 Hours 11/24/21 11/26/21 11/27/21 21:53 06:03 05:43 Estim Creat Clear Calc 138.2 160.2 160.2 Estimated GFR > 60 > 60 > 60 Vancomycin Loading Dose: Current Vancomycin Dosing Regimen: Vancomycin Monitoring using AUC goal of 400 - 600 range with trough as surrogate marker: Date and Time for next Vancomycin Level to be drawn: Vancomycin Trough < 3.0 mcg/mL (10.0-20.0) L 11/26/21 15:39 Pharmacist Comments on Vancomycin Plan:Increase to 1250 mg q8h trough to be drawn marshall before 4th dose Vancomycin dosing will take advantage of [employer] as a clinical decision support tool that uses Bayesian modeling to calculate individual patient's pharmacokinetic parameters and forecast the patient's drug concentration time course with the target goal AUC 24 range of 400 - 600 mg/L/hr.
[2021-11-27] MEDS: vancomycin HCL 1,250 MG in 0.9 % Sodium Chloride 250 ML 166.67 MG IV (19:26)
[2021-11-27] MEDS: 0.9 % Sodium Chloride Flush 3 ML SYRINGE IVFLUSH (19:27)
[2021-11-28] MEDS: oxyCODONE HCl Immed Release 5 MG TABLET PO ×4 (00:03→21:43)
[2021-11-28] MEDS: Melatonin 3 MG TABLET 6 MG PO (00:03)
[2021-11-28 03:00] VITALS: BP 160/61; PULSE 62; RESP 18; TEMP 36.5; O2SAT 94
[2021-11-28] MEDS: vancomycin HCL 1,250 MG in 0.9 % Sodium Chloride 250 ML 166.67 MG IV (04:02)
[2021-11-28] MEDS: Heparin Sodium,Porcine 5,000 UNIT/ML VIAL 5000 UNIT SUBCUT ×3 (04:03→18:58)
[2021-11-28 06:18] LABS: MANUAL DIFF FLAG NO
[2021-11-28 06:25] LABS: Basophils Percent Auto 0.7 % (0-2); Eosinophils Absolute Auto 0.1 X10*3/uL (0.0-0.4); Hematocrit 34.2 % (42.0-52.0); Hemoglobin 11.6 g/dl (14.0-18.0); Imm Gran Abs Auto 0.23 X10*3/uL (0.00-0.03); Imm Gran Pct Auto 3.7 % (0.0-0.4); Lymphocytes Absolute Auto 1.5 X10*3/uL (1.2-4.9); Lymphocytes Percent Auto 23.6 % (20-40); Mean Corpuscular HGB Conc 33.9 g/dl (31.0-36.0); Mean Corpuscular Hemoglobin 30.5 pg (27.0-33.0); Mean Platelet Volume 9.3 fL (9.4-12.4); Monocytes Absolute Auto 0.7 X10*3/uL (0.1-1.2); Monocytes Percent Auto 10.7 % (2-11); Neutrophils Absolute Auto 3.7 x10*3/uL (2.0-8.3); Neutrophils Percent Auto 59.3 % (45-73); Platelet Count 370 X10*3/uL (160-400); Red Cell Distribution Width 13.9 % (11.0-16.0); White Blood Count 6.2 X10*3/uL (4.8-10.8)
[2021-11-28 06:50] LABS: Alanine Aminotransferase 49 U/L (0-40); Albumin Level 3.8 g/dL (3.5-5.0); Alkaline Phosphatase 104 U/L (39-117); Anion Gap 15 (12-20); Aspartate Amino Transferase 46 U/L (5-37); Bilirubin Total 0.5 mg/dL (0.0-1.0); Blood Urea Nitrogen 13 mg/dL (9-16); Calcium 9.5 mg/dL (8.4-10.2); Carbon Dioxide 25 mmol/L (22-29); Chloride 100 mmol/L (96-108); Creatinine Clr Calc Pharmacy 157.9; Estimated Glomerular Filt Rate > 60; Glucose Fasting 90 mg/dL (60-99); Potassium 4.3 mmol/L (3.3-5.1); Sodium 136 mmol/L (135-145); Total Protein 7.5 g/dL (6.5-8.0)
[2021-11-28 07:00] VITALS: BP 135/66; PULSE 53; RESP 18; TEMP 36; O2SAT 94
[2021-11-28] MEDS: amLODIPine Besylate 5 MG TABLET PO (08:30)
[2021-11-28] MEDS: methADONE HCl 20 MG/2 ML ORAL.CONC 85 MG PO (08:30)
[2021-11-28] MEDS: Morphine Sulfate 2 MG/ML CARTRIDGE IVPUSH (08:31)
[2021-11-28 11:00] VITALS: BP 167/60; PULSE 62; RESP 20; TEMP 36.3; O2SAT 97
[2021-11-28] MEDS: vancomycin HCL 1,250 MG in 0.9 % Sodium Chloride 250 ML 166.66 MG IV ×2 (11:54→21:42)
--- NOTE | 2021-11-28 13:18 | HO.PM.IMPN ---
Subjective Subjective Date of Service: 11/28/21 Interval History: No acute issues overnight Review of Systems Denies CP Denies SOB Denies N/V/D Physical Exam Vital Signs: Vital Signs: Last Vital Signs Temp 97.4 F 11/28/21 11:00 Pulse 62 11/28/21 11:00 Resp 20 11/28/21 11:00 BP 167/60 H 11/28/21 11:00 Pulse Ox 97 11/28/21 11:00 BMI result Body Mass Index 33.0 Const: Other: No acute distress Resp: Other: Clear A/P Cardio: Other: -S4 + S1/S2 -S3 MRG Extrem: Other: CMS LLE intact Objective Data Active Medications Acetaminophen (Acetaminophen Supp 650 Mg Supp.Rect) 650 mg [place] Q6H PRN PRN Reason: Pain, Mild (Pain Scale 1-3) Albuterol Sulfate (Albuterol Sulfate (0.083%) 2.5 Mg/3 Ml Vial.Neb) 2.5 mg INHALE ONCE PRN PRN Reason: Wheezing Amlodipine Besylate (Amlodipine Besylate 5 Mg Tablet) 5 mg PO DAILY [facility]; Protocol Last Admin: 11/28/21 08:30 Dose: 5 mg Documented by: EBENEZER Heparin Sodium (Porcine) (Heparin Sodium,Porcine 5,000 Unit/Ml Vial) 5,000 unit SUBCUT Q8H [facility] Last Admin: 11/28/21 11:53 Dose: 5,000 unit Documented by: MARY LOU Hydromorphone HCl (Hydromorphone Hcl 0.5 Mg/0.5 Ml Syringe) 0.5 mg IVPUSH Q5M PRN; Protocol PRN Reason: Pain, Severe (Pain Scale 7-10) Last Admin: 11/25/21 12:09 Dose: 0.5 mg Documented by: JENNIFER Promethazine HCl 12.5 mg/ (Sodium Chloride) 50.5 mls @ 202 mls/hr IV ONCE PRN PRN Reason: Nausea and Vomiting Vancomycin HCl 1,250 mg/ (Sodium Chloride) 250 mls @ 166.667 mls/hr IV Q8H [facility] Last Admin: 11/28/21 11:54 Dose: 166.66 mls/hr Documented by: MARY LOU Melatonin (Melatonin 3 Mg Tablet) 6 mg PO BEDTIME PRN PRN Reason: Sleep Last Admin: 11/28/21 00:03 Dose: 6 mg Documented by: CASTANGELA Methadone HCl (Methadone Hcl 20 Mg/2 Ml Oral.Conc) 85 mg PO DAILY [facility] Last Admin: 11/28/21 08:30 Dose: 85 mg Documented by: EBENEZER Comments: wasted residual dose Morphine Sulfate (Morphine Sulfate 2 Mg/Ml Cartridge) 2 mg IVPUSH Q4H PRN; Protocol PRN Reason: Pain, Severe (Pain Scale 7-10) Last Admin: 11/28/21 08:31 Dose: 2 mg Documented by: EBENEZER Oxycodone HCl (Oxycodone Hcl Immed Release 5 Mg Tablet) 5 mg PO Q4H PRN PRN Reason: Pain, Moderate (Pain Scale 4-6 Last Admin: 11/28/21 11:53 Dose: 5 mg Documented by: MARY LOU Pharmacy Consult (Consult Rx Perform Med Rec) 1 each MISCELLANE ONCE PRN PRN Reason: Consult order Pharmacy Consult (Consult Rx Vancomycin Dosing) 1 each MISCELLANE DAILY PRN PRN Reason: Consult order Sodium Chloride (0.9 % Sodium Chloride Flush 3 Ml Syringe) 3 ml IVFLUSH QSHIFT [facility] Last Admin: 11/28/21 08:38 Dose: Not Given Documented by: EBENEZER Non-Admin Reason: IV Running Labs CBC & Chem 7: 11/28/21 05:43 11/28/21 05:43 Labs: Laboratory Results - last 24 hr 11/27/21 11/28/21 11/28/21 17:13 05:43 05:43 MCV 90.0 MCH 30.5 MCHC 33.9 RDW 13.9 Plt Count 370 D MPV 9.3 L Immature Gran % (Auto) 3.7 H Neut % (Auto) 59.3 Lymph % (Auto) 23.6 [place] % (Auto) 10.7 Eos % (Auto) 2.0 Baso % (Auto) 0.7 Lymph # (Auto) 1.5 [place] # (Auto) 0.7 Eos # (Auto) 0.1 Baso # (Auto) 0.0 Abs Immat Gran (auto) 0.23 H Absolute Neuts (auto) 3.7 Absolute Nucleated RBC 0.000 Nucleated RBC % (auto) 0.0 Anion Gap 15 Estim Creat Clear Calc 157.9 Estimated GFR > 60 Fasting Glucose 90 Calcium 9.5 Total Bilirubin 0.5 AST 46 H ALT 49 H Alkaline Phosphatase 104 Total Protein 7.5 Albumin 3.8 Random Vancomycin 11.5 L Assessment and Plan (1) Bacteremia: Status: Acute Assessment and Plan: 46YOm S/P post Tibial artery ligation secondary to pseudoaneurysm from IVDA 1. Pseudoaneurysm secondary to IVDA ? - as per Dr White 2. GPC bacteremia ? - Vanco/Zosyn x 4 weeks (02/10) ? -daily labs ? - Midline placed today secondary to needed access. Peripherals tenuous and thus being least invasive option 3. Opiate Abuse( states daily Methadone-85 daily) ? - Addiction medicine consult (2) Pseudoaneurysm: Status: Acute Quality Stroke Does the patient have a stroke diagnosis?: No VTE Prior VTE?: No VTE Risk Level:: Surgical - very high VTE Device Contraindication: Treatment Not Indicated VTE Drug Contraindication: Treatment Not Indicated
--- NOTE | 2021-11-28 14:20 | MHC.RECOVSUP ---
Recovery Support note: Patient is a 46 year old [place] speaking male who presented to [facility] ED due to an abscess related to IVDU. This fiction and nonfiction prose writer met with patient to discuss recovery supports. Patient reports using four days prior to presenting to the hospital and that he was sober for two months prior to that event. Patient reports methadone maintenance has been helpful and he reports no withdrawal symptoms. Patient reports his pain is being managed well at this time. Discussed prevalence of opiates in cocaine with patient. Patient reports he plans to not use any substance going forward and that he learned his lesson. Patient reports he is supported by friends and family. Patient expressed interest in attending groups in the future. Discussed recovery coaching and [facility] [place] with patient. Plan for head men's golf coach to follow up with patient to discuss these topics further.
[2021-11-28 15:00] VITALS: BP 166/90; PULSE 69; RESP 18; TEMP 36.3; O2SAT 94
[2021-11-28] MEDS: 0.9 % Sodium Chloride Flush 3 ML SYRINGE IVFLUSH ×2 (16:11→23:32)
--- NOTE | 2021-11-28 17:34 | MHC.RECOVSUP ---
? Reason for consult Recovery Support o Current location: 374_1 o Identified substance use concern: Heroin <del>-</del> <del>Overdose</del> <del>-</del> <del>Withdrawal</del> <del>-</del> <del>Seeking</del> <del>ATS</del> <del>(detox)</del> - Support ? Intervention: <del>o</del> <del>ATS</del> <del>bed</del> <del>search</del> <del>started/completed/in</del> <del>process</del> <del>o</del> <del>MAT</del> <del>started</del> <del>or</del> <del>to</del> <del>be</del> <del>started</del> o Community resources provided o Harm reduction discussion ? Plan: o <del>Referral</del> <del>to</del> <del>[facility]</del> <del>o</del> <del>Bed</del> <del>search</del> <del>in</del> <del>progress</del> <del>to</del> <del>o</del> <del>Follow</del> <del>up</del> <del>tomorrow</del> <del>o</del> <del>Patient</del> <del>awaiting</del> <del>crisis</del> <del>evaluation</del> o Patient to follow up with [facility] after discharge ? Additional information: Met with Patient and we talked about recovery & Harm reduction... We talked about [facility] [place] and what goes on there.. Patient was very interested..
[2021-11-28 18:54] LABS: Vancomycin Trough 16.9 mcg/mL (10.0-20.0)
[2021-11-28 19:00] VITALS: BP 177/110; PULSE 85; RESP 18; TEMP 36.9; O2SAT 92
[2021-11-29] VITALS (7 sets, daily range): BP systolic 140–163; BP diastolic 78–94; PULSE 73–88; RESP 15–20; TEMP 36–36.8; O2SAT 95–97
[2021-11-29] MEDS: oxyCODONE HCl Immed Release 5 MG TABLET PO ×2 (02:05→18:03)
[2021-11-29] MEDS: Morphine Sulfate 2 MG/ML CARTRIDGE IVPUSH ×2 (03:35→20:00)
[2021-11-29] MEDS: vancomycin HCL 1,250 MG in 0.9 % Sodium Chloride 250 ML 166.66 MG IV ×2 (03:36→12:34)
[2021-11-29] MEDS: Heparin Sodium,Porcine 5,000 UNIT/ML VIAL 5000 UNIT SUBCUT ×3 (03:36→18:03)
[2021-11-29 05:48] LABS: Basophils Absolute Auto 0.1 X10*3/uL (0.0-0.2); Basophils Percent Auto 0.6 % (0-2); Eosinophils Absolute Auto 0.2 X10*3/uL (0.0-0.4); Eosinophils Percent Auto 2.1 % (0-4); Hematocrit 36.7 % (42.0-52.0); Hemoglobin 12.4 g/dl (14.0-18.0); Imm Gran Abs Auto 0.56 X10*3/uL (0.00-0.03); Imm Gran Pct Auto 6.9 % (0.0-0.4); Lymphocytes Percent Auto 25.1 % (20-40); Mean Corpuscular HGB Conc 33.8 g/dl (31.0-36.0); Mean Corpuscular Hemoglobin 30.5 pg (27.0-33.0); Mean Corpuscular Volume 90.2 fL (80.0-98.0); Mean Platelet Volume 8.9 fL (9.4-12.4); Monocytes Absolute Auto 0.8 X10*3/uL (0.1-1.2); Monocytes Percent Auto 9.6 % (2-11); Neutrophils Absolute Auto 4.5 x10*3/uL (2.0-8.3); Neutrophils Percent Auto 55.7 % (45-73); Platelet Count 426 X10*3/uL (160-400); Red Blood Count 4.07 X10*6/uL (4.60-5.80); Red Cell Distribution Width 13.8 % (11.0-16.0); SCAN SMEAR FLAG 1; White Blood Count 8.1 X10*3/uL (4.8-10.8)
[2021-11-29 05:57] LABS: MANUAL DIFF FLAG SCAN
[2021-11-29 06:07] LABS: Alanine Aminotransferase 46 U/L (0-40); Albumin Level 3.9 g/dL (3.5-5.0); Alkaline Phosphatase 103 U/L (39-117); Anion Gap 13 (12-20); Aspartate Amino Transferase 35 U/L (5-37); Bilirubin Total 0.5 mg/dL (0.0-1.0); Blood Urea Nitrogen 16 mg/dL (9-16); Carbon Dioxide 29 mmol/L (22-29); Chloride 99 mmol/L (96-108); Creatinine Clr Calc Pharmacy 139.9; Estimated Glomerular Filt Rate > 60; Glucose Fasting 105 mg/dL (60-99); Potassium 4.8 mmol/L (3.3-5.1); Sodium 136 mmol/L (135-145); Total Protein 7.6 g/dL (6.5-8.0)
[2021-11-29 06:09] LABS: SLIDE REVIEW VERIFIED
[2021-11-29] MEDS: 0.9 % Sodium Chloride Flush 3 ML SYRINGE IVFLUSH ×3 (09:54→20:01)
[2021-11-29] MEDS: amLODIPine Besylate 5 MG TABLET PO (09:54)
[2021-11-29] MEDS: methADONE HCl 20 MG/2 ML ORAL.CONC 85 MG PO (09:54)
--- NOTE | 2021-11-29 13:46 | P.PNIM_ITS ---
Subjective Subjective Date of Service: 11/29/21 Interval History: No acute issues overnight Review of Systems DeniesCP Denies SOB Denies N/V/D Physical Exam Vital Signs: Vital Signs: Last Vital Signs Temp 96.8 F 11/29/21 11:24 Pulse 83 11/29/21 11:24 Resp 20 11/29/21 11:24 BP 145/90 H 11/29/21 11:24 Pulse Ox 95 11/29/21 11:24 BMI result Body Mass Index 33.0 Const: General: cooperative and no acute distress Resp: Auscultation: clear to auscultation bilaterally, no crackles, no rales and no rhonchi Cardio: Rate: regular rate Rhythm: regular rhythm Heart sounds: S1 normal heart sound present, S2 normal heart sound present and no murmurs GI: Inspection: Yes normal to inspection Palpation (GI): Soft to palpation and nontender Auscultation: normal bowel sounds Extrem: General: Yes normal to inspection Objective Data Active Medications Acetaminophen (Acetaminophen Supp 650 Mg Supp.Rect) 650 mg [place] Q6H PRN PRN Reason: Pain, Mild (Pain Scale 1-3) Albuterol Sulfate (Albuterol Sulfate (0.083%) 2.5 Mg/3 Ml Vial.Neb) 2.5 mg INHALE ONCE PRN PRN Reason: Wheezing Amlodipine Besylate (Amlodipine Besylate 5 Mg Tablet) 5 mg PO DAILY [facility]; Protocol Last Admin: 11/29/21 09:54 Dose: 5 mg Documented by: ANDREA Heparin Sodium (Porcine) (Heparin Sodium,Porcine 5,000 Unit/Ml Vial) 5,000 unit SUBCUT Q8H [facility] Last Admin: 11/29/21 09:54 Dose: 5,000 unit Documented by: ANDREA Hydromorphone HCl (Hydromorphone Hcl 0.5 Mg/0.5 Ml Syringe) 0.5 mg IVPUSH Q5M PRN; Protocol PRN Reason: Pain, Severe (Pain Scale 7-10) Last Admin: 11/25/21 12:09 Dose: 0.5 mg Documented by: JENNIFER Promethazine HCl 12.5 mg/ (Sodium Chloride) 50.5 mls @ 202 mls/hr IV ONCE PRN PRN Reason: Nausea and Vomiting Vancomycin HCl 1,250 mg/ (Sodium Chloride) 250 mls @ 166.667 mls/hr IV Q8H [facility] Last Admin: 11/29/21 12:34 Dose: 166.66 mls/hr Documented by: ANDREA Melatonin (Melatonin 3 Mg Tablet) 6 mg PO BEDTIME PRN PRN Reason: Sleep Last Admin: 11/28/21 00:03 Dose: 6 mg Documented by: CASTILLaura Methadone HCl (Methadone Hcl 20 Mg/2 Ml Oral.Conc) 85 mg PO DAILY [facility] Last Admin: 11/29/21 09:54 Dose: 85 mg Documented by: ANDREA Morphine Sulfate (Morphine Sulfate 2 Mg/Ml Cartridge) 2 mg IVPUSH Q4H PRN; Protocol PRN Reason: Pain, Severe (Pain Scale 7-10) Last Admin: 11/29/21 03:35 Dose: 2 mg Documented by: EMMA Oxycodone HCl (Oxycodone Hcl Immed Release 5 Mg Tablet) 5 mg PO Q4H PRN PRN Reason: Pain, Moderate (Pain Scale 4-6 Last Admin: 11/29/21 02:05 Dose: 5 mg Documented by: EMMA Pharmacy Consult (Consult Rx Perform Med Rec) 1 each MISCELLANE ONCE PRN PRN Reason: Consult order Pharmacy Consult (Consult Rx Vancomycin Dosing) 1 each MISCELLANE DAILY PRN PRN Reason: Consult order Sodium Chloride (0.9 % Sodium Chloride Flush 3 Ml Syringe) 3 ml IVFLUSH QSHIFT [facility] Last Admin: 11/29/21 09:54 Dose: 3 ml Documented by: ANDREA Labs CBC & Chem 7: 11/29/21 05:23 11/29/21 05:23 Labs: Laboratory Results - last 24 hr 11/28/21 11/29/21 11/29/21 18:30 05:23 05:23 MCV 90.2 MCH 30.5 MCHC 33.8 RDW 13.8 Plt Count 426 H MPV 8.9 L Immature Gran % (Auto) 6.9 H Neut % (Auto) 55.7 Lymph % (Auto) 25.1 [place] % (Auto) 9.6 Eos % (Auto) 2.1 Baso % (Auto) 0.6 Lymph # (Auto) 2.0 [place] # (Auto) 0.8 Eos # (Auto) 0.2 Baso # (Auto) 0.1 Abs Immat Gran (auto) 0.56 H Absolute Neuts (auto) 4.5 Absolute Nucleated RBC 0.000 Nucleated RBC % (auto) 0.0 Smear Tech's Comments VERIFIED Anion Gap 13 Estim Creat Clear Calc 139.9 Estimated GFR > 60 Fasting Glucose 105 H Calcium 10.0 Total Bilirubin 0.5 AST 35 ALT 46 H Alkaline Phosphatase 103 Total Protein 7.6 Albumin 3.9 Vancomycin Trough 16.9 Microbiology Microbiology Results: Microbiology 11/28/21 05:43 Blood Culture - Preliminary Blood - Venous No growth after 24 hours. 11/28/21 05:43 Blood Culture - Preliminary Blood - Venous No growth after 24 hours. Assessment and Plan (1) Pseudoaneurysm: Status: Acute (2) Bacteremia: Status: Acute (3) Opioid use disorder: Status: Acute Plan 46YOm S/P post Tibial artery ligation secondary to pseudoaneurysm from IVDA 1. Pseudoaneurysm secondary to IVDA ? - as per Dr White 2. GPC bacteremia ? - discussed with ID; pt not vaccinated with Hx IVDA/no primary...unlikely to get placement. Cannot go with PICC given IVDA; recommends Linezoild if covered x 2 weeks. Alternative Doxy x 2 weeks - will arrange prior to Dr White discharging ? 3. Opiate Abuse( states daily Methadone-85 daily) ? - Addiction medicine consult Quality Stroke Does the patient have a stroke diagnosis?: No VTE Prior VTE?: No VTE Risk Level:: Surgical - very high VTE Device Contraindication: Treatment Not Indicated VTE Drug Contraindication: Treatment Not Indicated
--- NOTE | 2021-11-29 15:59 | P.PNVS_ITS ---
Subjective Subjective Date of Service: 11/29/21 Patient reports: no new complaints and feels better Interval history: Patient seen and examined. Events over the past weekend noted. Appears to be doing relatively well Physical Exam Vital Signs: Vital Signs: Last Vital Signs Temp 96.8 F 11/29/21 11:24 Pulse 83 11/29/21 11:24 Resp 20 11/29/21 11:24 BP 145/90 H 11/29/21 11:24 Pulse Ox 95 11/29/21 11:24 BMI result Body Mass Index 33.0 Const: General: cooperative, healthy appearing and no acute distress Orientation/consciousness: oriented to person, oriented to place and oriented to time HENMT: Head: Yes normal to inspection Neck: Carotids: no bruits Chest: Chest palpation & inspection: normal inspection of the chest Resp: Effort & Inspection: normal respiratory effort and able to speak in complete sentences Auscultation: clear to auscultation bilaterally Cardio: Rate: regular rate Heart sounds: S1 normal heart sound present and S2 normal heart sound present GI: Inspection: Yes normal to inspection Skin: Other: excision site pooirly healing General skin exam: no rashes or lesions noted Wounds: no wounds Neuro: General: oriented to person, oriented to place, oriented to time and CN's II-XI intact bilaterally Extrem: General: Yes normal to inspection, Yes full ROM and Yes no clubbing, cyanosis or edema Psych: Appearance: grossly normal and well kempt Speech and movement: Normal speech and movement present Affect: normal affect Progress Note: A&P Assessment and plan (1) Pseudoaneurysm: Status: Acute Assessment and Plan: Patient is stable status post ligation of pseudoaneurysm. He is stable from my perspective for discharge. The concern here is his bacteremia and long-term antibiotics. I will work with Medicine to try to better coordinate this. Upon discharge he will require dry dressing changes daily. He can see me in approximately 2 weeks as an outpatient for suture removal. He may also benefit from evaluation and further care by [facility]. Thank you for allowing us to assist in his care. If there are any questions or concerns please do not hesitate to contact us. Fall Risk Details Current Medications: Current Medications Acetaminophen (Acetaminophen Supp 650 Mg Supp.Rect) 650 mg [place] Q6H PRN PRN Reason: Pain, Mild (Pain Scale 1-3) Albuterol Sulfate (Albuterol Sulfate (0.083%) 2.5 Mg/3 Ml Vial.Neb) 2.5 mg INHALE ONCE PRN PRN Reason: Wheezing Amlodipine Besylate (Amlodipine Besylate 5 Mg Tablet) 5 mg PO DAILY [facility]; Protocol Last Admin: 11/29/21 09:54 Dose: 5 mg Documented by: Heparin Sodium (Porcine) (Heparin Sodium,Porcine 5,000 Unit/Ml Vial) 5,000 unit SUBCUT Q8H [facility] Last Admin: 11/29/21 09:54 Dose: 5,000 unit Documented by: Hydromorphone HCl (Hydromorphone Hcl 0.5 Mg/0.5 Ml Syringe) 0.5 mg IVPUSH Q5M PRN; Protocol PRN Reason: Pain, Severe (Pain Scale 7-10) Last Admin: 11/25/21 12:09 Dose: 0.5 mg Documented by: Promethazine HCl 12.5 mg/ (Sodium Chloride) 50.5 mls @ 202 mls/hr IV ONCE PRN PRN Reason: Nausea and Vomiting Vancomycin HCl 1,250 mg/ (Sodium Chloride) 250 mls @ 166.667 mls/hr IV Q8H [facility] Last Infusion: 11/29/21 14:07 Dose: Infused Documented by: Melatonin (Melatonin 3 Mg Tablet) 6 mg PO BEDTIME PRN PRN Reason: Sleep Last Admin: 11/28/21 00:03 Dose: 6 mg Documented by: Methadone HCl (Methadone Hcl 20 Mg/2 Ml Oral.Conc) 85 mg PO DAILY [facility] Last Admin: 11/29/21 09:54 Dose: 85 mg Documented by: Morphine Sulfate (Morphine Sulfate 2 Mg/Ml Cartridge) 2 mg IVPUSH Q4H PRN; Protocol PRN Reason: Pain, Severe (Pain Scale 7-10) Last Admin: 11/29/21 03:35 Dose: 2 mg Documented by: Oxycodone HCl (Oxycodone Hcl Immed Release 5 Mg Tablet) 5 mg PO Q4H PRN PRN Reason: Pain, Moderate (Pain Scale 4-6 Last Admin: 11/29/21 02:05 Dose: 5 mg Documented by: Pharmacy Consult (Consult Rx Perform Med Rec) 1 each MISCELLANE ONCE PRN PRN Reason: Consult order Pharmacy Consult (Consult Rx Vancomycin Dosing) 1 each MISCELLANE DAILY PRN PRN Reason: Consult order Sodium Chloride (0.9 % Sodium Chloride Flush 3 Ml Syringe) 3 ml IVFLUSH QSHIFT [facility] Last Admin: 11/29/21 09:54 Dose: 3 ml Documented by: Time Spent With Patient Time: Total time spent is greater than 50% in coordination of care (as documented) at patient's floor/unit and/or counseling patient: Time with patient: 15 - 24 minutes Procedures Date of Service Date of Service: 11/29/21 Quality Stroke Does the patient have a stroke diagnosis?: No VTE Prior VTE?: No VTE Risk Level:: Surgical - very high VTE Device Contraindication: Treatment Not Indicated VTE Drug Contraindication: Treatment Not Indicated
[2021-11-29 18:48] LABS: Vancomycin Trough 19.7 mcg/mL (10.0-20.0)
[2021-11-29] MEDS: vancomycin HCL 1,000 MG in 0.9 % Sodium Chloride 250 ML 270 MG IV (20:01)
--- NOTE | 2021-11-29 20:01 | PHA.PROG ---
Admission Date/Time: November 25, 2021 09:21 Indication: Bactermia Weight in k.512 kg Adjusted body weight in K.625 kg [place] body weight in K kg Obesity Dosing Indication % IBW: 143% Serum Creatinine - Last 168 Hours 11/24/21 11/26/21 11/27/21 21:53 06:03 05:43 Creatinine 0.80 0.69 0.69 11/28/21 11/29/21 05:43 05:23 Creatinine 0.70 0.79 Estimated CrCl and GFR - Last 168 Hours 11/24/21 11/26/21 11/27/21 21:53 06:03 05:43 Estim Creat Clear Calc 138.2 160.2 160.2 Estimated GFR > 60 > 60 > 60 11/28/21 11/29/21 05:43 05:23 Estim Creat Clear Calc 157.9 139.9 Estimated GFR > 60 > 60 Vancomycin Loading Dose: 1250 mg Current Vancomycin Dosing Regimen: 1250 mg Q8H Vancomycin Trough 19.7 mcg/mL (10.0-20.0) 11/29/21 18:20 Pharmacist Comments on Vancomycin Plan: Trough increased from 16.9 to 19.7 in 24 hours. Renal function is stable Current regimen has patient expect to be supratheraputic with an AUC > 600 Will decrease vancomycin to 1000 mg Q8H. Expected AUC 501 with a trough of 18.6 Next trough: 11/30/2021 @ 1800 Pharmacy will continue to monitor reanl function daily Amanda Tate, Melina Vancomycin dosing will take advantage of [employer] as a clinical decision support tool that uses Bayesian modeling to calculate individual patient's pharmacokinetic parameters and forecast the patient's drug concentration time course with the target goal AUC 24 range of 400 - 600 mg/L/hr.
[2021-11-30] MEDS: Morphine Sulfate 2 MG/ML CARTRIDGE IVPUSH (00:53)
[2021-11-30 03:53] VITALS: BP 136/78; PULSE 78; RESP 20; TEMP 36.7; O2SAT 96
[2021-11-30] MEDS: vancomycin HCL 1,000 MG in 0.9 % Sodium Chloride 250 ML 270 MG IV ×2 (04:12→11:32)
[2021-11-30] MEDS: Heparin Sodium,Porcine 5,000 UNIT/ML VIAL 5000 UNIT SUBCUT ×2 (04:12→11:32)
[2021-11-30 07:43] VITALS: BP 161/85; PULSE 72; RESP 20; TEMP 37.1; O2SAT 97
[2021-11-30] MEDS: amLODIPine Besylate 5 MG TABLET PO (07:48)
[2021-11-30] MEDS: methADONE HCl 20 MG/2 ML ORAL.CONC 85 MG PO (07:49)
[2021-11-30] MEDS: 0.9 % Sodium Chloride Flush 3 ML SYRINGE IVFLUSH (07:49)
[2021-11-30 08:52] LABS: Creatinine Clr Calc Pharmacy 145.4; Estimated Glomerular Filt Rate > 60
[2021-11-30] MEDS: oxyCODONE HCl Immed Release 5 MG TABLET 10 MG PO (11:48)
[2021-11-30 11:52] VITALS: BP 144/91; PULSE 78; RESP 20; TEMP 36.2; O2SAT 92
--- NOTE | 2021-11-30 12:04 | PM.DS ---
DS: Providers Provider Date of Service: 11/30/21 Date of admission: 11/25/21 09:21 Primary care physician: Unknown Physician Consults: 11/25/21 04:29 Consult to Vascular Surgery Routine Consulting Provider: Rickie White Reason for consultation: L ankle pseudoaneurysm Has provider been notified: Yes 11/25/21 09:21 Consult to Hospitalist Routine Consulting Provider: Hospitalist Reason For Exam: med management 11/25/21 14:27 Addiction Medicine Stat Consulting Provider: Sabi Oliveros Reason for consultation: Methadone maintainence.states 85mg daily as outpt Has provider been notified: Yes 11/26/21 12:21 Consult to Infectious Diseases Routine Consulting Provider: Bisi Guo Reason for consultation: bacteremia Has provider been notified: No DS: Diagnosis Discharge Diagnosis (1) Pseudoaneurysm: Status: Acute DS: Summary Hospital Course Hospital Course: Sven Mcpherson is a 46 year old male who was in his usual state of health with no significant comorbidities reports that he injected speedball in to his left ankle approximately 4 days prior.? It subsequently is a swallow up the developed a hematoma and some ecchymosis.? Yesterday evening it began to bleed.? He presented to the ER.? Compression dressing was placed and it was subsequently well controlled.? This morning he had gotten up to go to the bathroom and it Tila bled.? It was repacked.? At the time of my examination it was Tila opened and there was pulsatile red blood noted.? He was subsequently emergently transferred to ER. Post op period essentionally uneventful from surgery standpoint . BC 2/2 positive for MSSA; started on Vanco. ID advised 4 weeks IV ABTX however pt ongoin IVDA/no PCP/unvaccinated...unlikely to be placed. Discussed with ID; best course given circumstances is Linezolid 600BID x 4 weeks. Prior auth obtained. Pt DC to follow up with vascular and complete course of po Linezolid. Strongly advised avoidance of opiates. Time Spent with Patient Time attestation: Total time spent providing and/or coordinating discharge services: Discharge coordination time: Greater than 30 minutes Quality: Stroke Does the patient have a stroke diagnosis?: No Physical Exam Vital Signs: Vital Signs: Last Vital Signs Temp 97.2 F 11/30/21 11:52 Pulse 78 11/30/21 11:52 Resp 20 11/30/21 11:52 BP 144/91 H 11/30/21 11:52 Pulse Ox 92 11/30/21 11:52 BMI result Body Mass Index 33.0 Const: General: cooperative and no acute distress Resp: Auscultation: clear to auscultation bilaterally, no crackles, no rales and no rhonchi Cardio: Rate: regular rate Rhythm: regular rhythm Heart sounds: S1 normal heart sound present, S2 normal heart sound present and no murmurs GI: Inspection: Yes normal to inspection Palpation (GI): Soft to palpation and nontender Auscultation: normal bowel sounds Extrem: General: Yes normal to inspection DS: Data Data Completed and Pending Completed studies during hospitalization [Text1]: Pending at discharge 11/25/21 08:46 Surgical [PTH] Routine Labs on day of discharge: Laboratory Results - last 24 hr 11/29/21 11/30/21 18:20 08:25 Creatinine 0.76 Estim Creat Clear Calc 145.4 Estimated GFR > 60 Vancomycin Trough 19.7 Preliminary micro results at discharge 11/28/21 05:43 Blood Culture - Preliminary Blood - Venous No growth after 48 hours. 11/28/21 05:43 Blood Culture - Preliminary Blood - Venous No growth after 48 hours. Discharge Plan Discharge Patient Disposition: Home, Self-Care Discharge Diagnosis: Pseudoaneurysm with bacteremia Referrals: Physician,Unknown J [Primary Care Provider] - 1 Week Discharge Medications: New oxycodone 5 mg Tablet 10 mg PO Q4H PRN (Reason: Pain, Moderate (Pain Scale 4-6) Qty: 60 0RF linezolid 600 mg tablet 600 mg PO BID Qty: 28 0RF Continued amlodipine 5 mg tablet 1 tab PO DAILY Qty: 30 0RF Discontinued melatonin 5 mg tablet 1 tab PO BEDTIME PRN (Reason: Sleep) 0RF Discharge Orders: Discharge Order (Routine); Ordered 11/30/21 Ordered By: Christiano Kate Diet: advance to usual diet Activity on Discharge: As tolerated Stand Alone Forms: Patient Portal Discharge page Care Plan Goals: Complete course of Lenazolid as ordered. Follow up with Vascular...they will call with appoint. Health Concerns: Absolutely no IV drugs Plan of Treatment: Follow with Methadone clinic as scheduled Assessment: See DC summary
--- NOTE | 2021-11-30 12:08 | MHC.CM.PN ---
[facility] PRIOR AUTH CONTACT ([phone]) AUTHORIZES LINEZOLID 600 MG TABLET PO FOR 14 DAYS PATIENT DOES NOT WANT TO REMAIN IN THE HOSPITAL AND STATES THAT HE IS LEAVING TODAY. HE IS AWARE THAT PO MEDICATION IS NOT BEST TREATMENT PLAN AND THAT HE SHOULD REMAIN [place] [facility] [place] [facility]NAGEMENT CAN FIND A BED FOR LT IV ABX. PATIENT REFUSES ANY SNF REFERRALS. HE CANNOT GET ANY VNA SERVICES, HE DOES NOT HAVE A PCP AND IS ACTIVE IVDA RN AWARE OF PLAN.
--- NOTE | 2021-11-30 14:39 | HO.VASCPN ---
Subjective Subjective Date of Service: 11/30/21 Patient reports: no new complaints and feels better Interval history: Patient seen and examined. No events overnight. Reports that he is doing relatively well. Pain well controlled. He is up and ambulating. Physical Exam Vital Signs: Vital Signs: Last Vital Signs Temp 97.2 F 11/30/21 11:52 Pulse 78 11/30/21 11:52 Resp 20 11/30/21 11:52 BP 144/91 H 11/30/21 11:52 Pulse Ox 92 11/30/21 11:52 BMI result Body Mass Index 33.0 Const: General: cooperative, healthy appearing and no acute distress Orientation/consciousness: oriented to person, oriented to place and oriented to time HENMT: Head: Yes normal to inspection Neck: Carotids: no bruits Chest: Chest palpation & inspection: normal inspection of the chest Resp: Effort & Inspection: normal respiratory effort and able to speak in complete sentences Auscultation: clear to auscultation bilaterally Cardio: Rate: regular rate Heart sounds: S1 normal heart sound present and S2 normal heart sound present GI: Inspection: Yes normal to inspection Skin: General skin exam: no rashes or lesions noted Wounds: wounds noted (Left ankle open ulcer) Neuro: General: oriented to person, oriented to place, oriented to time and CN's II-XI intact bilaterally Extrem: General: Yes normal to inspection, Yes full ROM and Yes no clubbing, cyanosis or edema Psych: Appearance: grossly normal and well kempt Speech and movement: Normal speech and movement present Affect: normal affect Progress Note: A&P Assessment and plan (1) Pseudoaneurysm: Status: Acute Assessment and Plan: Patient is stable status post pseudoaneurysm resection. No issues. Will plan for discharge on p.o. antibiotics per Infectious Disease. He can follow up with me as an outpatient for suture removal in approximately 2 weeks time. Please have him changed dressings daily to a dry protective dressing and keep clean. Thank you for allowing us to assist in his care. Fall Risk Details Current Medications: Current Medications Acetaminophen (Acetaminophen Supp 650 Mg Supp.Rect) 650 mg GA Q6H PRN PRN Reason: Pain, Mild (Pain Scale 1-3) Albuterol Sulfate (Albuterol Sulfate (0.083%) 2.5 Mg/3 Ml Vial.Neb) 2.5 mg INHALE ONCE PRN PRN Reason: Wheezing Amlodipine Besylate (Amlodipine Besylate 5 Mg Tablet) 5 mg PO DAILY [facility]; Protocol Last Admin: 11/30/21 07:48 Dose: 5 mg Documented by: Heparin Sodium (Porcine) (Heparin Sodium,Porcine 5,000 Unit/Ml Vial) 5,000 unit SUBCUT Q8H [facility] Last Admin: 11/30/21 11:32 Dose: 5,000 unit Documented by: Promethazine HCl 12.5 mg/ (Sodium Chloride) 50.5 mls @ 202 mls/hr IV ONCE PRN PRN Reason: Nausea and Vomiting Vancomycin HCl 1,000 mg/ (Sodium Chloride) 270 mls @ 270 mls/hr IV Q8H [facility] Last Infusion: 11/30/21 12:37 Dose: Infused Documented by: Melatonin (Melatonin 3 Mg Tablet) 6 mg PO BEDTIME PRN PRN Reason: Sleep Last Admin: 11/28/21 00:03 Dose: 6 mg Documented by: Methadone HCl (Methadone Hcl 20 Mg/2 Ml Oral.Conc) 85 mg PO DAILY [facility] Last Admin: 11/30/21 07:49 Dose: 85 mg Documented by: Oxycodone HCl (Oxycodone Hcl Immed Release 5 Mg Tablet) 10 mg PO Q4H PRN PRN Reason: Pain, Moderate (Pain Scale 4-6 Last Admin: 11/30/21 11:48 Dose: 10 mg Documented by: Pharmacy Consult (Consult Rx Perform Med Rec) 1 each MISCELLANE ONCE PRN PRN Reason: Consult order Pharmacy Consult (Consult Rx Vancomycin Dosing) 1 each MISCELLANE DAILY PRN PRN Reason: Consult order Sodium Chloride (0.9 % Sodium Chloride Flush 3 Ml Syringe) 3 ml IVFLUSH QSHIFT [facility] Last Admin: 11/30/21 07:49 Dose: 3 ml Documented by: Time Spent With Patient Time: Total time spent is greater than 50% in coordination of care (as documented) at patient's floor/unit and/or counseling patient: Time with patient: 15 - 24 minutes Procedures Date of Service Date of Service: 11/30/21 Quality Stroke Does the patient have a stroke diagnosis?: No VTE Prior VTE?: No VTE Risk Level:: Surgical - very high VTE Device Contraindication: Treatment Not Indicated VTE Drug Contraindication: Treatment Not Indicated
[2021-11-30 15:14] VITALS: BP 173/93; PULSE 83; RESP 14; TEMP 36.6; O2SAT 97
--- NOTE | 2021-11-30 16:04 | PC.NURSE ---
mid-line removed.8 cm as per insertion report. pressure dsg applied.
== END 2021-11-30 17:01 | disposition home or self-care (01) | DRG 181 ==
LOC: HO.ED 11-25 07:31 → HO.EDOVER 11-25 09:59 → HO.S3 11-25 12:57
PROVIDERS: Anesthesiology; Emergency Medicine; Hospitalist; Admitting Provider Surgery Vascular Surgery; Emergency Provider Emergency Medicine; Visit Provider Surgery Vascular Surgery
PROC: 04Q Lower Arteries, Repair (ICD-10-PCS; principal; 2021-11-25 07:30)
DX: I72.4 Aneurysm of artery of lower extremity (principal); R78.81 Bacteremia; B95.61 Methicillin susceptible Staphylococcus aureus infection as the cause of diseases classified elsewhere; F11.20 Opioid dependence, uncomplicated; L03.116 Cellulitis of left lower limb; F17.210 Nicotine dependence, cigarettes, uncomplicated; Z20.822 Contact with and (suspected) exposure to COVID-19; Z79.899 Other long term (current) drug therapy
CPT/HCPCS: 36410; 36415; 73610; 80048; 80053; 80202; 82565; 83605; 85025; 85027; 85610; 86850; 86900; 86901; 87040; 87077; 87186; 87205; 87635; 88305; 93306; 93926; 96361; 96365; 96367; 96375; 99285; C1757; J0690; J1100; J1170; J1200; J2060; J2250; J2270; J2405; J2543; J3010; J3370

== ENCOUNTER → 2021-12-14 13:38 | Outpatient (BNVA) | payer OTHER, SELFPAY | PROVIDERS: Visit Provider Surgery Vascular Surgery | DX: I73.9 Peripheral vascular disease, unspecified (principal); I83.12 Varicose veins of left lower extremity with inflammation; Z98.890 Other specified postprocedural states | CPT/HCPCS: 99212 ==

== ENCOUNTER 2021-12-28 08:17 | Outpatient (RCR) | payer OTHER, SELFPAY | END 2022-03-17 08:08 | disposition home or self-care (01) | LOC: HO.WCC 08:17 | PROVIDERS: Visit Provider Physician Assistant | DX: I70.243 Atherosclerosis of native arteries of left leg with ulceration of ankle (principal); L97.322 Non-pressure chronic ulcer of left ankle with fat layer exposed; I10 Essential (primary) hypertension; F11.288 Opioid dependence with other opioid-induced disorder; F12.90 Cannabis use, unspecified, uncomplicated | CPT/HCPCS: 11042; 99213 ==

== ENCOUNTER 2022-01-06 08:22 | Outpatient (REF) | payer OTHER, SELFPAY ==
--- NOTE | ~2022-01-06 | US_ITS ---
EXAMINATION: US LOWER EXTREMITY VENOUS (REFLUX EXAM), BILATERAL CLINICAL INDICATION: Bilateral lower extremity varicose veins. COMPARISON: None. TECHNIQUE: Color flow triplex imaging and compression Doppler was performed to evaluate both the deep and the superficial systems bilaterally. To evaluate the superficial system, the examination was performed in the upright position. Color-flow Doppler ultrasound and compression ultrasound were utilized. In addition, maneuvers were utilized to demonstrate reflux. FINDINGS: SUPERFICIAL ULTRASOUND WITH DOPPLER OF RIGHT LOWER EXTREMITY GREAT SAPHENOUS VEIN: Saphenofemoral junction: 0.6 cm Max diameter: 0.6 cm Min diameter: 0.1 cm Reflux: There is segmental reflux below the knee measuring greater than 2.3 seconds. DUPLICATED MEDIAL GREAT SAPHENOUS VEIN: Max Diameter: None Imaged Reflux: NA DUPLICATED LATERAL GREAT SAPHENOUS VEIN: Diameter: 0.2 cm at the junction Reflux: None SMALL SAPHENOUS VEIN: Proximal Calf: 0.2 cm Distal Calf: 0.2 cm Reflux: No evidence of reflux. VEIN OF GIACOMINI: None Imaged. PERFORATORS: Location: Mid thigh measuring 1 mm Reflux: None VARICOSITIES: Location: None Imaged Reflux: NA DEEP VENOUS ULTRASOUND OF THE RIGHT LOWER EXTREMITY: Common Femoral Vein: Compressible, normal respiratory variation and augmented flow. Femoral vein: Compressible, normal color flow and augmentation. Popliteal Vein: Compressible, normal augmentation. Deep Reflux: There is no evidence of reflux in the deep system in either the common femoral vein or the popliteal vein. Reyez's Cyst: There is no evidence of a Reyez's cyst. SUPERFICIAL ULTRASOUND WITH DOPPLER OF LEFT LOWER EXTREMITY GREAT SAPHENOUS VEIN: Saphenofemoral junction: 0.8 cm Max diameter: 0.8 cm Min diameter: 0.1 cm Reflux: There is reflux within the left great saphenous vein from above the knee to below the knee measuring up to 3 seconds. DUPLICATED MEDIAL GREAT SAPHENOUS VEIN: Max Diameter: None Imaged Reflux: NA DUPLICATED LATERAL GREAT SAPHENOUS VEIN: Diameter: None Imaged Reflux: NA SMALL SAPHENOUS VEIN: Proximal Calf: 0.1 cm Distal Calf: 0.2 cm Reflux: No evidence of reflux. VEIN OF GIACOMINI: None Imaged. PERFORATORS: Location: Proximal calf measuring 2 mm Reflux: None VARICOSITIES: Location: None imaged Reflux: NA DEEP VENOUS ULTRASOUND OF THE LEFT LOWER EXTREMITY: Common Femoral Vein: Compressible, normal respiratory variation and augmented flow. Femoral vein: Compressible, normal color flow and augmentation. Popliteal Vein: Compressible, normal augmentation. Deep Reflux: There is no evidence of reflux in the deep system in either the common femoral vein or the popliteal vein. Reyez's Cyst: There is no evidence of a Reyez's cyst. US/US venous duplex LE BI IMPRESSION: 1. Segmental reflux within the right great saphenous vein below the knee. 2. Segmental reflux within the left great saphenous vein from above the knee to the proximal calf. 3. No evidence of deep venous insufficiency or DVT.
--- NOTE | ~2022-01-06 | US_ITS ---
EXAMINATION: NONINVASIVE ASSESSMENT OF THE ARTERIES OF BOTH LOWER EXTREMITIES WITH PVR EXAM AND BILATERAL LOWER EXTREMITY DUPLEX CLINICAL INFORMATION: Peripheral vascular disease. History of left MARKETING COORDINATOR ligation and pseudoaneurysm removal on December 07. TECHNIQUE: Ankle pulse volume recordings, ankle pressure measurements and ankle brachial indices were obtained of the lower extremity arterial system bilaterally. Additionally, duplex Doppler techniques were used with wave form analysis and measurement of velocities in the common femoral, profunda femoral, superficial femoral, popliteal and tibial arteries. The study was performed only at rest. COMPARISON: Left lower extremity duplex exam on 11/24/2021. FINDINGS: ANKLE-BRACHIAL INDEX: Right: 1.28 Left: 1.28. ANKLE PRESSURES: Right: PT 200, DP 200 Left: PT 200, DP 200 PVR WAVEFORM: Right: Dampened Left: Normal. DIRECT DUPLEX DOPPLER FINDINGS: RIGHT LEG: Common femoral artery: 171 cm/s, diastolic flow reversal: Yes. Profunda femoris artery: 70 cm/s, diastolic flow reversal: Yes. Superficial femoral artery (proximal): 112 cm/s, diastolic flow reversal: Yes. Superficial femoral artery (mid): 112 cm/s, diastolic flow reversal: Yes. Superficial femoral artery (distal): 105 cm/s, diastolic flow reversal: Yes. Popliteal artery: 100 cm/s, diastolic flow reversal: No. Posterior tibial artery: 137cm/s, diastolic flow reversal: No. Peroneal artery: 68.2cm/s, diastolic flow reversal: No. LEFT LEG: Common femoral artery: 59 cm/s, diastolic flow reversal: Yes. Profunda femoris artery: 52 cm/s, diastolic flow reversal: Yes. Superficial femoral artery (proximal): 102 cm/s, diastolic flow reversal: No. Superficial femoral artery (mid): 102 cm/s, diastolic flow reversal: No. Superficial femoral artery (distal): 78 cm/s, diastolic flow reversal: Yes. Popliteal artery: 115 cm/s, diastolic flow reversal: No. Posterior tibial artery (proximal): 93.5cm/s, diastolic flow reversal: No. Peroneal artery: 70.3cm/s, diastolic flow reversal: No. US/US arterial duplex LE BI IMPRESSION: Right leg: FANNIE 1.28 though likely elevated due to ankle pressures greater than 200 mmHg. No hemodynamically significant outflow stenosis identified on duplex. Left leg: FANNIE 1.28 likely elevated due to ankle pressures greater than 200 mmHg. No hemodynamically significant outflow stenosis identified on duplex. The proximal posterior tibial artery is patent. FANNIE Reference: - >0.97-1.25 = normal - no significant arterial disease. - 0.75-0.96 = mild peripheral arterial disease. - 0.5-0.74 = moderate peripheral arterial disease. - <0.50 = severe peripheral arterial disease.
--- NOTE | ~2022-01-06 | US_ITS ---
EXAMINATION: NONINVASIVE ASSESSMENT OF THE ARTERIES OF BOTH LOWER EXTREMITIES WITH PVR EXAM AND BILATERAL LOWER EXTREMITY DUPLEX CLINICAL INFORMATION: Peripheral vascular disease. History of left CRA ligation and pseudoaneurysm removal on December 07. TECHNIQUE: Ankle pulse volume recordings, ankle pressure measurements and ankle brachial indices were obtained of the lower extremity arterial system bilaterally. Additionally, duplex Doppler techniques were used with wave form analysis and measurement of velocities in the common femoral, profunda femoral, superficial femoral, popliteal and tibial arteries. The study was performed only at rest. COMPARISON: Left lower extremity duplex exam on 11/24/2021. FINDINGS: ANKLE-BRACHIAL INDEX: Right: 1.28 Left: 1.28. ANKLE PRESSURES: Right: PT 200, DP 200 Left: PT 200, DP 200 PVR WAVEFORM: Right: Dampened Left: Normal. DIRECT DUPLEX DOPPLER FINDINGS: RIGHT LEG: Common femoral artery: 171 cm/s, diastolic flow reversal: Yes. Profunda femoris artery: 70 cm/s, diastolic flow reversal: Yes. Superficial femoral artery (proximal): 112 cm/s, diastolic flow reversal: Yes. Superficial femoral artery (mid): 112 cm/s, diastolic flow reversal: Yes. Superficial femoral artery (distal): 105 cm/s, diastolic flow reversal: Yes. Popliteal artery: 100 cm/s, diastolic flow reversal: No. Posterior tibial artery: 137cm/s, diastolic flow reversal: No. Peroneal artery: 68.2cm/s, diastolic flow reversal: No. LEFT LEG: Common femoral artery: 59 cm/s, diastolic flow reversal: Yes. Profunda femoris artery: 52 cm/s, diastolic flow reversal: Yes. Superficial femoral artery (proximal): 102 cm/s, diastolic flow reversal: No. Superficial femoral artery (mid): 102 cm/s, diastolic flow reversal: No. Superficial femoral artery (distal): 78 cm/s, diastolic flow reversal: Yes. Popliteal artery: 115 cm/s, diastolic flow reversal: No. Posterior tibial artery (proximal): 93.5cm/s, diastolic flow reversal: No. Peroneal artery: 70.3cm/s, diastolic flow reversal: No. US/US FANNIE complete IMPRESSION: Right leg: FANNIE 1.28 though likely elevated due to ankle pressures greater than 200 mmHg. No hemodynamically significant outflow stenosis identified on duplex. Left leg: FANNIE 1.28 likely elevated due to ankle pressures greater than 200 mmHg. No hemodynamically significant outflow stenosis identified on duplex. The proximal posterior tibial artery is patent. FANNIE Reference: - >0.97-1.25 = normal - no significant arterial disease. - 0.75-0.96 = mild peripheral arterial disease. - 0.5-0.74 = moderate peripheral arterial disease. - <0.50 = severe peripheral arterial disease.
== END 2022-01-06 08:23 | disposition home or self-care (01) ==
LOC: HO.US 08:22
PROVIDERS: Visit Provider Surgery Vascular Surgery
DX: I73.9 Peripheral vascular disease, unspecified (principal); I83.12 Varicose veins of left lower extremity with inflammation
CPT/HCPCS: 93923; 93925; 93970

== ENCOUNTER → 2022-01-13 10:58 | Outpatient (BNVA) | payer OTHER, SELFPAY | PROVIDERS: Visit Provider Surgery Vascular Surgery | DX: I83.12 Varicose veins of left lower extremity with inflammation (principal); I73.9 Peripheral vascular disease, unspecified; F17.200 Nicotine dependence, unspecified, uncomplicated; Z71.6 Tobacco abuse counseling | CPT/HCPCS: 99212 ==

== ENCOUNTER 2022-03-29 13:41 | Outpatient (RCR) | payer OTHER, SELFPAY | END 2022-05-11 16:25 | disposition home or self-care (01) | LOC: HO.WCC 13:41 | PROVIDERS: Visit Provider Physician Assistant | DX: L97.322 Non-pressure chronic ulcer of left ankle with fat layer exposed (principal); I73.9 Peripheral vascular disease, unspecified; F11.288 Opioid dependence with other opioid-induced disorder; F12.90 Cannabis use, unspecified, uncomplicated; I10 Essential (primary) hypertension; Z91.19 Patient's noncompliance with other medical treatment and regimen; F17.200 Nicotine dependence, unspecified, uncomplicated | CPT/HCPCS: 11042 ==

== ENCOUNTER 2023-12-27 14:13 | Inpatient (IN) | payer OTHER, SELFPAY ==
--- NOTE | ~2023-12-27 | MR_ITS ---
EXAMINATION: MRI LOWER EXTREMITY, NON JOINT, WITHOUT CONTRAST, RIGHT CLINICAL INFORMATION: Tenosynovitis. Rule out osteomyelitis. COMPARISON: CT dated 12/30/2023 TECHNIQUE: MRI of the lower leg was performed before without contrast on a high-field scanner. FINDINGS: As seen on the prior CT, there is fluid within the posterior tibial tendon sheath and flexor digitorum longus tendon sheath at the level of the distal tibial metadiaphysis with extension into the hindfoot. Given the significant surrounding edema signal, this may correspond to septic tenosynovitis. The edema signal extends within the intermuscular fascial planes surrounding the flexor hallucis longus, tibialis posterior and flexor hallucis longus to the level of the proximal origins at the level of the proximal tibial metaphysis. No separate fluid collections are identified. There is mild edema signal in the deep margin of the soleus muscle which is likely reactive to the adjacent inflammation in the deep posterior compartment. Anterior and lateral compartment muscles are also relatively normal in signal intensity. There is mild edema signal along the posteromedial margin of the distal tibia adjacent to the posterior tibialis tendon, likely reactive in nature. Bone marrow signal is otherwise normal. No fracture or malalignment. Articular cartilage is normal. Imaged portion of the knee is unremarkable. MR/MR lower leg RT wo/w con IMPRESSION: Posterior tibial and flexor digitorum tenosynovitis with significant surrounding intramuscular edema signal and fascial edema signal extending proximally within the deep posterior compartment musculature at the level of the proximal tibial metaphysis. Given the concern for infection, this is most consistent with septic tenosynovitis. Sensitivity and specificity are limited in the absence of intravenous contrast. No appreciable abscess or osteomyelitis. This study was ordered with and without intravenous contrast, which is appropriate given the indication. Per the technologist, intravenous contrast material was not given. Attempts will be made to bring the patient back to the MRI to obtain the postcontrast images.
--- NOTE | ~2023-12-27 | CT_ITS ---
EXAMINATION: CT FOOT WITH CONTRAST, RIGHT CLINICAL INFORMATION: Infection. Question abscess. COMPARISON: Right foot radiographs dated 12/27/2023. TECHNIQUE: Contiguous axial CT images of the right foot were obtained following the IV administration of 85 mL Omnipaque 350 contrast. Multiplanar reformats were provided and reviewed. This CT examination was performed using dose optimization techniques as appropriate, variously including the following: Automated exposure control. Adjustment of mA and/or kV according to patient size (this includes techniques or standardized protocols for targeted exams where dose is matched to indication/reason for exam; i.e. extremities or head). Use of iterative reconstruction technique. DLP: 183 mGy-cm. FINDINGS: Circumferential subcutaneous edema and stranding at the ankle, with extension along the dorsal aspect of the foot. Mild associated skin thickening. Complex, peripherally-enhancing fluid in the region of the posterior tibial tendon sheath, extending from the distal tendon insertion proximally beyond the imaged [id number], concerning for infectious tenosynovitis versus abscess formation. This measures up to 1.5 x 1.0 cm in greatest axial dimension. No additional peripherally-enhancing fluid collection. Small tibiotalar joint effusion. The visualized flexor and extensor tendons are otherwise intact. No acute fracture or dislocation. No concerning lytic or blastic osseous lesion. No periosteal reaction. No talar osteochondral lesion. No joint space narrowing or marginal osteophytes. CT/CT foot RT w IV con IMPRESSION: 1. Circumferential subcutaneous edema and stranding at the ankle, with extension along the dorsal aspect of the foot. Mild associated skin thickening. Findings are consistent with cellulitis. 2. Complex, peripherally-enhancing fluid in the region of the posterior tibial tendon sheath, extending from the distal tendon insertion proximally beyond the imaged [id number], concerning for infectious tenosynovitis versus abscess formation. This measures up to 1.5 x 1.0 cm in greatest axial dimension. 3. Small tibiotalar joint effusion.
--- NOTE | ~2023-12-27 | XR_ITS ---
STUDY: Right tibia and fibula, right ankle and right foot INDICATION: Osteomyelitis/foreign body COMPARISON: None TECHNIQUE: 2 view tibia and fibula 2 view right ankle, 3 view right foot FINDINGS: Tibia and fibula: Knee joint is intact. Patellar spurring and patellofemoral joint space narrowing. No fracture or dislocation. Metallic coil identified lateral knee soft tissues. Right ankle: Diffuse soft tissue swelling but no fracture or dislocation. Alignment and articulations are maintained. Mortise is intact. Right foot: No fracture or dislocation. Alignment and articulations are maintained. No bony erosions. Achilles enthesopathy. Anterior ankle and dorsal foot soft tissue swelling and probable right ankle effusion. XR/XR ankle RT min 3V IMPRESSION: Right ankle effusion. Right ankle and right dorsal foot soft tissue swelling without bony pathology.
--- NOTE | ~2023-12-27 | XR_ITS ---
STUDY: Right tibia and fibula, right ankle and right foot INDICATION: Osteomyelitis/foreign body COMPARISON: None TECHNIQUE: 2 view tibia and fibula 2 view right ankle, 3 view right foot FINDINGS: Tibia and fibula: Knee joint is intact. Patellar spurring and patellofemoral joint space narrowing. No fracture or dislocation. Metallic coil identified lateral knee soft tissues. Right ankle: Diffuse soft tissue swelling but no fracture or dislocation. Alignment and articulations are maintained. Mortise is intact. Right foot: No fracture or dislocation. Alignment and articulations are maintained. No bony erosions. Achilles enthesopathy. Anterior ankle and dorsal foot soft tissue swelling and probable right ankle effusion. XR/XR foot RT min 3V IMPRESSION: Right ankle effusion. Right ankle and right dorsal foot soft tissue swelling without bony pathology.
--- NOTE | ~2023-12-27 | US_ITS ---
EXAMINATION: US VENOUS ULTRASOUND WITH DOPPLER LOWER EXTREMITY, RIGHT CLINICAL INFORMATION: Right lower extremity pain and edema. Evaluate for deep vein thrombosis. COMPARISON: Bilateral lower extremity venous ultrasound dated 01/06/2022. TECHNIQUE: Ultrasound of the deep veins is performed from the hip to the calf with compression sonography and color and pulse Doppler assessment. Spectral analysis with color-flow imaging is performed. FINDINGS: There is normal venous compression and respiratory variation and augmented flow. The visualized common femoral vein, superficial femoral vein, profunda femoral vein, popliteal vein, and the trifurcation region shows no evidence of deep venous thrombosis. There is no significant popliteal fossa cyst. Right inguinal lymph node measuring up to 4 cm in greatest dimension with normal architecture. If the patient's symptoms persist, followup ultrasound in 5 days 7 days might be of value to exclude proximal propagation from a non-visualized calf vein. US/US venous duplex LE RT IMPRESSION: No DVT demonstrated in the right lower extremity.
--- NOTE | ~2023-12-27 | CT_ITS ---
EXAMINATION: CT ANKLE WITHOUT CONTRAST, RIGHT CLINICAL INFORMATION: Ankle swelling and pain. Evaluate for abscess. COMPARISON: CT foot 12/27/2023 TECHNIQUE: A noncontrast CT of the right ankle is performed with sagittal and coronal reformats This CT examination was performed using dose optimization techniques as appropriate, variously including the following: *Automated exposure control *Adjustment of mA and/or kV according to patient size (this includes techniques or standardized protocols for targeted exams where dose is matched to indication/reason for exam; i.e. extremities or head) *Use of iterative reconstruction technique Dose Length Product: 158 mGycm. FINDINGS: Diffuse subcutaneous edema is again demonstrated surrounding the ankle and extending along the dorsum of the foot, with a small focus of fluid adjacent to the distal posterior tibialis tendon which may represent tenosynovitis, no significant change. Cortical thinning/erosion of the subjacent tibia may be reactive, potentially a sign of early osteomyelitis in the setting of infection. This is demonstrated on series 3, images 167-177. There is a moderate ankle joint effusion. Prominent enthesopathy of the calcaneus at the Achilles tendon insertion. CT/CT ankle RT wo IV con IMPRESSION: Redemonstration of posterior tibial tenosynovitis, suspicious for inflammatory/septic tenosynovitis in the appropriate clinical setting, not significantly changed, better demonstrated on the previous contrast-enhanced study. Cortical thinning/erosion of the subjacent tibia may be reactive, potentially a sign of early osteomyelitis in the setting of infection. Consider further evaluation with MRI. Moderate ankle joint effusion.
--- NOTE | ~2023-12-27 | XR_ITS ---
STUDY: Right tibia and fibula, right ankle and right foot INDICATION: Osteomyelitis/foreign body COMPARISON: None TECHNIQUE: 2 view tibia and fibula 2 view right ankle, 3 view right foot FINDINGS: Tibia and fibula: Knee joint is intact. Patellar spurring and patellofemoral joint space narrowing. No fracture or dislocation. Metallic coil identified lateral knee soft tissues. Right ankle: Diffuse soft tissue swelling but no fracture or dislocation. Alignment and articulations are maintained. Mortise is intact. Right foot: No fracture or dislocation. Alignment and articulations are maintained. No bony erosions. Achilles enthesopathy. Anterior ankle and dorsal foot soft tissue swelling and probable right ankle effusion. XR/XR tibia fibula RT 2V IMPRESSION: Right ankle effusion. Right ankle and right dorsal foot soft tissue swelling without bony pathology.
[2023-12-27 15:47] VITALS: BP 236/136; PULSE 89; RESP 16; TEMP 37; O2SAT 98; BMI 34.7
--- NOTE | 2023-12-27 15:52 | ED.GENADULT ---
HPI - General Adult General Chief complaint: Wound/Laceration Stated complaint: R Foot Pain Swelling S/P Injury 12/25/23 Time Seen by Provider: 12/27/23 19:28 Source: patient and family (patient's mother) Mode of arrival: ambulatory Limitations: no limitations History of Present Illness HPI narrative: Patient is a 48 year old assigned male at with a history of PAD and IV drug use presenting to the emergency department today with right lower leg pain. Patient states that he has been injecting in the right lower leg and lately it has been much bigger and painful. Patient denies any dizziness, lightheadedness, abdominal pain, nausea, vomiting, fever, chills, blurry vision, double vision, loss of vision, chest pain, difficulty breathing, shortness of breath, back pain, night sweats, pain with urination, increased urinary frequency, increased urinary urgency, blood in his urine or stool, syncope or a near syncopal episode, recent trauma or falls, bowel incontinence, bladder incontinence, bowel retention, bladder retention, or any other complaints at this time. Onset (ago): day(s) Location: right and lower extremity Radiation: non-radiation Severity: mild Severity scale (1-10): 3 Quality: aching and dull Pain Consistency: constant Relieving factors: none Exacerbating factors: none Associated symptoms: denies other symptoms Treatments prior to arrival: none Related Data Home Medications Medication Instructions Recorded Confirmed methadone 10 mg/mL oral mg PO DAILY 12/27/23 concentrate (Methadose) Allergies Allergy/AdvReac Type Severity Reaction Status Date / Time shellfish derived Allergy Unknown ANGIOEDEMA Verified 01/13/22 11:01 [SHELLFISH DERIVED] shellfish Allergy Unknown anaphylaxis Uncoded 12/14/21 13:50 Review of Systems Constitutional: Constitutional: Reports no additional constitutional complaints, Denies chills, Denies fever(s) and Denies night sweats Eyes: Eyes: Reports no additional eye complaints, Denies blurry vision, Denies change in vision, Denies diplopia, Denies eye discharge, Denies loss of vision and Denies eye pain ENT: Denies dizziness Cardiovascular: Cardiovascular: Reports no additional cardiovascular complaints, Denies chest pain, Denies lightheadedness, Denies Loss of Consciousness and Denies dyspnea Respiratory: Respiratory: Reports no additional respiratory complaints and Denies dyspnea Gastrointestinal: Gastrointestinal: Reports no additional gastrointestinal complaints, Denies abdominal pain, Denies melena, Denies hematochezia, Denies change in bowel habits and Denies change in stool character Genitourinary: Genitourinary: Reports no additional male genitourinary complaints, Denies hematuria, Denies oliguria, Denies difficulty urinating, Denies dysuria, Denies urinary frequency, Denies urinary hesitancy, Denies urinary incontinence and Denies urinary urgency Musculoskeletal: Musculoskeletal: Reports no additional musculoskeletal complaints, Denies numbness and Denies tingling Comments: right lower leg pain and swelling Neurologic: Denies dizziness, Denies loss of vision, Denies numbness and Denies tingling Psychiatric: Psychiatric: Reports no additional psychiatric complaints Endocrine: Endocrine: Reports no additional endocrine complaints Hematologic/Lymphatic: Hematologic/Lymphatic: Reports no additional hematologic/lymphatic complaints Allergic/Immunologic: Allergic/Immunologic: Reports no additional allergic/immunologic complaints [facility] Past Medical History Attestation statement: The following information was validated with the patient. Source: old records reviewed and nursing notes reviewed Medical History Opioid dependence HTN (hypertension) PAD (peripheral artery disease) Active substance abuse Social History Social History Household Members: Family Housing: House Do you presently have visiting nurse or other home services: Yes (for mother) Alcohol intake: never Patient Tobacco Use Status: Current everyday Tobacco user Tobacco use type: Cigarette Cigarettes Per Day: 3 e-Cigarette/Vaping Use: Currently Using Substance Use Type: Crack/Cocaine, Heroin and Marijuana Advance Directives: No Advance Directives Information Provided: No service: No Current occupational status: disabled Physical Exam ED Vital Signs: Vital Signs - 24 hr 12/27/23 15:47 12/27/23 19:11 Temperature 98.6 F 98.2 F Pulse Rate 89 83 Respiratory Rate 16 20 Blood Pressure 236/136 H 192/99 H Pulse Oximetry 98 99 Oxygen Delivery Method Room Air Room Air BMI result Body Mass Index 34.7 Const General: cooperative, no acute distress, alert and awake Nutritional Appearance: well nourished Orientation/consciousness: patient oriented x3 Limitations: no limitations HENMT Head: Yes normal to inspection and Yes atraumatic Ears: hearing grossly normal bilaterally and external ears normal General nose exam: Normal external nose present, no nasal discharge noted and no epistaxis Face and sinus: Yes normal facial exam, No abrasion and No laceration Mouth: Normal oral and palatal mucosa present, no drooling and no muffled voice Eyes General: appearance normal, both eyes and all related structures Periorbital: periorbital findings normal Eyelids: Yes eyelids normal Conjunctivae: conjunctivae normal Pupils: Equal, round and reactive pupils present EOM: EOMs intact bilaterally Neck Neck: Yes normal visual inspection, Yes full ROM and Yes no lymphadenopathy Chest Chest palpation & inspection: normal inspection of the chest Resp Effort & Inspection: normal respiratory effort and able to speak in complete sentences GI Inspection: Yes normal to inspection Neuro General: patient oriented x3 and moves all extremities Cranial nerves: Yes Equal, round and reactive pupils present Cognition (Neuro): normal cognition Motor exam (neuro): 5/5 motor strength present throughout Sensory Exam: Normal double simultaneous stimulation for sensation Coordination: [id number] test normal Extrem Other: General: Yes full ROM and Yes capillary refill normal Psych Appearance: grossly normal Mental Status: mental status grossly normal Affect: normal affect Attitude: cooperative Thought process: Normal thought process present Thought content: Normal thought content present Insight: Good insight present (Psych) Course Course Course Narrative: IV drug user who injects and right leg complains of right leg pain redness and swelling over the last several days Noted to be hypertensive Ultrasound x-ray and labs are ordered This is rapid medical exam done in triage pending full ER evaluation and dispo Medications Administered Generic Name Dose Route Start Last Admin Trade Name Freq PRN Reason Stop Dose Admin Enoxaparin Sodium 40 mg 12/27/23 21:00 12/27/23 21:30 Enoxaparin Sodium 40 Mg/0.4 Ml Syringe SUBCUT 40 mg Q24H SHEILA Administration Piperacillin Sod/Tazobactam 50 mls @ 100 mls/hr 12/27/23 21:00 12/27/23 21:46 Sod 3.375 gm/ Sodium Chloride IV 100 mls/hr Q6H SHEILA Administration Discontinued Medications Generic Name Dose Route Start Last Admin Trade Name Freq PRN Reason Stop Dose Admin Amlodipine Besylate 10 mg 12/27/23 20:19 12/27/23 21:30 Amlodipine Besylate 10 Mg Tablet PO 12/27/23 20:20 10 mg ONCE ONE Administration Protocol Hydromorphone HCl 1 mg 12/27/23 19:54 12/27/23 21:30 Hydromorphone Hcl 1 Mg/Ml Syringe IVPUSH 12/27/23 19:55 1 mg ONCE ONE Administration Protocol Procedures Procedure Narrative Procedure Narrative: I was asked to assist with ultrasound guidance. I was able to place a 20 gauge 1.75 in IV catheter in the right upper extremity. This was done on 1 try, there were no complications. I was able to draw labs as well and the line flushed well postprocedure Medical Decision Making Medical Decision Making MDM Narrative: Patient is a 47 year old assigned male at with a history of opioid us disorder and PAD presenting to the emergency department today with right lower leg swelling and pain. Patient's physical exam was as noted in the physical exam portion of this note. Patient's blood work showed chronically elevated LFTs but was otherwise unremarkable. Patient's right tib fib x-ray showed no acute process. Patient's RLE US showed no acute process. I spoke to the hospitalist team who agreed to admission. Patient's clinical presentation is not consistent with sepsis (@2122). I explained my physical exam findings as well as all test results to the patient and the patient's mother. I answered all questions asked by the patient and the patient's mother. Patient and the patient's mother verbalized agreement and understanding with this treatment plan and admission. Differential Diagnosis Differential Diagnoses: The differential diagnosis associated with the presentation includes RLE cellulitis RLE swelling Admission/Observation Consideration of admission/observation: Escalation of care including admission/observation considered Patient is admitted. Consult Healthcare Provider Management of the patient was discussed with: Hospitalist (agreed to admission) Lab Data [facility] Lab Attestation statement: I reviewed the patient's lab results. My interpretation of these results are in the MDM Rationale portion of this note. 12/27/23 16:50 12/27/23 16:50 Labs: Lab Results 12/27/23 Range/Units 16:50 WBC 9.0 (4.8-10.8) X10*3/uL RBC 4.14 L (4.60-5.80) X10*6/uL Hgb 12.7 L (14.0-18.0) g/dl Hct 37.1 L (42.0-52.0) % MCV 89.6 (80.0-98.0) fL MCH 30.7 (27.0-33.0) pg MCHC 34.2 (31.0-36.0) g/dl RDW 12.9 (11.0-16.0) % Plt Count 423 H (160-400) X10*3/uL MPV 8.4 L (9.4-12.4) fL Immature Gran % (Auto) 0.6 H (0.0-0.4) % Neut % (Auto) 76.3 H (45-73) % Lymph % (Auto) 11.9 L (20-40) % [place] % (Auto) 9.7 (2-11) % Eos % (Auto) 1.2 (0-4) % Baso % (Auto) 0.3 (0-2) % Lymph # (Auto) 1.1 L (1.2-4.9) X10*3/uL [place] # (Auto) 0.9 (0.1-1.2) X10*3/uL Eos # (Auto) 0.1 (0.0-0.4) X10*3/uL Baso # (Auto) 0.0 (0.0-0.2) X10*3/uL Abs Immat Gran (auto) 0.05 H (0.00-0.03) X10*3/uL Absolute Neuts (auto) 6.9 (2.0-8.3) x10*3/uL Absolute Nucleated RBC 0.000 (0.0-0.012) X10*3/uL Nucleated RBC % (auto) 0.0 (0.0-0.2) /100WBC Sodium 138 (135-145) mmol/L Potassium 4.1 (3.3-5.1) mmol/L Chloride 101 (96-108) mmol/L Carbon Dioxide 29 (22-29) mmol/L Anion Gap 12 (12-20) BUN 12 (9-16) mg/dL Creatinine 0.66 (0.5-1.4) mg/dL Estim Creat Clear Calc 173.0 Estimated GFR > 60 Random Glucose 103 (60-115) mg/dL Calcium 9.5 (8.4-10.2) mg/dL Total Bilirubin 0.4 (0.0-1.0) mg/dL Direct Bilirubin 0.3 (0.0-0.5) mg/dL AST 63 H (5-37) U/L ALT 88 H (0-40) U/L Alkaline Phosphatase 119 H (39-117) U/L Total Protein 8.2 H (6.5-8.0) g/dL Albumin 3.5 (3.5-5.0) g/dL Independent Interpretation I performed an independent interpretation of an: Plain X-Ray and Ultrasound Interpretation: My interpretation is in agreement with the radiologist's impression of these imaging studies. STUDY: Right tibia and fibula, right ankle and right foot INDICATION: Osteomyelitis/foreign body COMPARISON: None TECHNIQUE: 2 view tibia and fibula 2 view right ankle, 3 view right foot FINDINGS: Tibia and fibula: Knee joint is intact. Patellar spurring and patellofemoral joint space narrowing. No fracture or dislocation. Metallic coil identified lateral knee soft tissues. Right ankle: Diffuse soft tissue swelling but no fracture or dislocation. Alignment and articulations are maintained. Mortise is intact. Right foot: No fracture or dislocation. Alignment and articulations are maintained. No bony erosions. Achilles enthesopathy. Anterior ankle and dorsal foot soft tissue swelling and probable right ankle effusion. XR/XR tibia fibula RT 2V IMPRESSION: Right ankle effusion. Right ankle and right dorsal foot soft tissue swelling without bony pathology. Dictated By: Emilia Macedo MD Signed By: Electronically signed by Emilia Macedo MD 12/27/23 1646 EXAMINATION: US VENOUS ULTRASOUND WITH DOPPLER LOWER EXTREMITY, RIGHT CLINICAL INFORMATION: Right lower extremity pain and edema. Evaluate for deep vein thrombosis. COMPARISON: Bilateral lower extremity venous ultrasound dated 01/06/2022. TECHNIQUE: Ultrasound of the deep veins is performed from the hip to the calf with compression sonography and color and pulse Doppler assessment. Spectral analysis with color-flow imaging is performed. FINDINGS: There is normal venous compression and respiratory variation and augmented flow. The visualized common femoral vein, superficial femoral vein, profunda femoral vein, popliteal vein, and the trifurcation region shows no evidence of deep venous thrombosis. There is no significant popliteal fossa cyst. Right inguinal lymph node measuring up to 4 cm in greatest dimension with normal architecture. If the patient's symptoms persist, followup ultrasound in 5 days 7 days might be of value to exclude proximal propagation from a non-visualized calf vein. US/US venous duplex LE RT IMPRESSION: No DVT demonstrated in the right lower extremity. Dictated By: Gomez Gifford MD Signed By: Electronically signed by Gomez Gifford MD 12/27/23 7091 Radiology Impression Discussion of test interpretation with radiology: I have reviewed the radiologist's reading. Critical Care Time Critical Care Time Critical Care Time: Yes Total Critical Care Time: 128 Attestation: I spent 128 minutes of Critical Care Time with this patient. This does not include time spent on separately reported billable procedures. Discharge Plan Discharge Clinical Impression: Cellulitis of right leg Patient Disposition: Admitted As Inpatient
[2023-12-27 16:54] LABS: MANUAL DIFF FLAG NO
[2023-12-27 16:56] LABS: Basophils Percent Auto 0.3 % (0-2); Eosinophils Absolute Auto 0.1 X10*3/uL (0.0-0.4); Eosinophils Percent Auto 1.2 % (0-4); Hematocrit 37.1 % (42.0-52.0); Hemoglobin 12.7 g/dl (14.0-18.0); Imm Gran Abs Auto 0.05 X10*3/uL (0.00-0.03); Imm Gran Pct Auto 0.6 % (0.0-0.4); Lymphocytes Absolute Auto 1.1 X10*3/uL (1.2-4.9); Lymphocytes Percent Auto 11.9 % (20-40); Mean Corpuscular HGB Conc 34.2 g/dl (31.0-36.0); Mean Corpuscular Hemoglobin 30.7 pg (27.0-33.0); Mean Corpuscular Volume 89.6 fL (80.0-98.0); Mean Platelet Volume 8.4 fL (9.4-12.4); Monocytes Absolute Auto 0.9 X10*3/uL (0.1-1.2); Monocytes Percent Auto 9.7 % (2-11); Neutrophils Absolute Auto 6.9 x10*3/uL (2.0-8.3); Neutrophils Percent Auto 76.3 % (45-73); Platelet Count 423 X10*3/uL (160-400); Red Blood Count 4.14 X10*6/uL (4.60-5.80); Red Cell Distribution Width 12.9 % (11.0-16.0)
[2023-12-27 17:50] LABS: Alanine Aminotransferase 88 U/L (0-40); Albumin Level 3.5 g/dL (3.5-5.0); Alkaline Phosphatase 119 U/L (39-117); Anion Gap 12 (12-20); Aspartate Amino Transferase 63 U/L (5-37); Bilirubin Direct 0.3 mg/dL (0.0-0.5); Bilirubin Total 0.4 mg/dL (0.0-1.0); Blood Urea Nitrogen 12 mg/dL (9-16); Calcium 9.5 mg/dL (8.4-10.2); Carbon Dioxide 29 mmol/L (22-29); Chloride 101 mmol/L (96-108); Estimated Glomerular Filt Rate > 60; Glucose Random 103 mg/dL (60-115); Potassium 4.1 mmol/L (3.3-5.1); Sodium 138 mmol/L (135-145); Total Protein 8.2 g/dL (6.5-8.0)
[2023-12-27 19:11] VITALS: BP 192/99; PULSE 83; RESP 20; TEMP 36.8; O2SAT 99
--- NOTE | 2023-12-27 20:12 | PHA.MEDREC ---
Pharmacy Consult ? Medication Reconciliation Pharmacy has completed the medication reconciliation. Patient reported only taking methadone at [facility]. RN will need to call to verify dose. Amanda Tate, GiuseppeD
--- NOTE | 2023-12-27 20:37 | PM.IMHP ---
History of Present Illness Date of Service: 12/27/23 Attending physician on admission: Juan Alberto Quiñones Chief Complaint: rle reness, swelling 48-year-old male with history of peripheral artery disease, hypertension, ongoing IV drug abuse (heroin-last use just prior to arrival), opiate dependence on methadone with history of MSSA bacteremia presented to the ED earlier today for evaluation of redness, pain, swelling in the right lower extremity ongoing for 4 days. He admits to injecting heroin into the bilateral lower extremities on a regular basis, more often in the left than right. However about 4 days ago noted increasing redness and swelling of the right lower leg without any active drainage. Reports chills but no documented fevers. He also reports marijuana use but denies any other illicit drug use. He does smoke 2-3 cigarettes on a daily basis but denies any alcohol use. He has been following with [facility] for his methadone and desires rehab. On arrival, patient quite hypertensive to 236/136 with blood pressure 192/99 on admission. Vitals otherwise stable. He does have a history of hypertension but has not been seen by PCP or taken medications in quite some time. Denies any headaches, visual changes, chest pain. There is no leukocytosis. There is a stable normocytic anemia with H/H 12.7/37.1%. Renal function normal, electrolyte levels normal. AST 63, ALT 88, alkaline phosphatase 119. Venous duplex negative for DVT in the right lower extremity. X-ray of the right tib/fib, foot, ankle negative for osseous abnormality but shows soft tissue swelling and right ankle effusion. Patient will be admitted for further management of extensive cellulitis of the right lower extremity in IV drug abuser. Review of Systems Review of Systems: General: No fevers, malaise, unintentional weight loss HEENT: No blurred vision, diplopia. No sore throat, nasal congestion, rhinorrhea, sinus pain, ear pain Cardiovascular: No chest pain, palpitations, or leg edema Respiratory: No shortness of breath, wheezing, cough GI: No abdominal pain, nausea, vomiting, diarrhea, constipation, melena, hematochezia : No dysuria, hematuria, increased urinary frequency, decreased urinary output MSK: No myalgia, back pain Neuro: No headaches, weakness, paresthesias Skin: +pain/swelling/redness [facility] Medical History Opioid dependence HTN (hypertension) PAD (peripheral artery disease) Active substance abuse Social History Household Members: Family Housing: House Do you presently have visiting nurse or other home services: Yes (for mother) Alcohol intake: never Patient Tobacco Use Status: Current everyday Tobacco user Tobacco use type: Cigarette Cigarettes Per Day: 3 e-Cigarette/Vaping Use: Currently Using Substance Use Type: Crack/Cocaine, Heroin and Marijuana Advance Directives: No Advance Directives Information Provided: No service: No Current occupational status: disabled Meds Allergies Allergy/AdvReac Type Severity Reaction Status Date / Time shellfish derived Allergy Unknown ANGIOEDEMA Verified 01/13/22 11:01 [SHELLFISH DERIVED] shellfish Allergy Unknown anaphylaxis Uncoded 12/14/21 13:50 Active Medications: Current Medications Acetaminophen (Acetaminophen 325 Mg Tablet) 650 mg PO Q6H PRN PRN Reason: Pain, Mild (Pain Scale 1-3) Enoxaparin Sodium (Enoxaparin Sodium 40 Mg/0.4 Ml Syringe) 40 mg SUBCUT Q24H SHEILA Piperacillin Sod/Tazobactam (Sod 3.375 gm/ Sodium Chloride) 50 mls @ 100 mls/hr IV Q6H SHEILA Morphine Sulfate (Morphine Sulfate 4 Mg/Ml Cartridge) 4 mg IVPUSH Q4H PRN; Protocol PRN Reason: Pain, Severe (Pain Scale 7-10) Ondansetron HCl (Ondansetron Hcl 4 Mg/2 Ml Vial) 4 mg IVPUSH Q8H PRN PRN Reason: Nausea and Vomiting Oxycodone HCl (Oxycodone Hcl Immed Release 5 Mg Tablet) 5 mg PO Q6H PRN PRN Reason: Pain, Moderate(Pain Scale 4-6) Pharmacy Consult (Consult Rx Vancomycin Dosing) 1 each MISCELLANE DAILY PRN PRN Reason: Consult order Senna (Sennosides 8.6 Mg Tablet) 17.2 mg PO BEDTIME PRN PRN Reason: Constipation Sodium Chloride (0.9 % Sodium Chloride Flush 3 Ml Syringe) 3 ml IVFLUSH QSHIFT [facility] Home Medications Medication Instructions Recorded Confirmed Last Taken Type methadone 10 mg/mL oral mg PO DAILY 12/27/23 Unknown History concentrate (Methadose) Physical Exam Vital Signs and Narrative: Vital Signs: Last Vital Signs Temp 98.2 F 12/27/23 19:11 Pulse 83 12/27/23 19:11 Resp 20 12/27/23 19:11 BP 192/99 H 12/27/23 19:11 Pulse Ox 99 12/27/23 19:11 O2 Del Method Room Air 12/27/23 19:11 BMI result Body Mass Index 34.7 Constitutional - Awake and Alert, No apparent distress Eyes - PERRLA, EOMI Cardiovascular - S1S2, RRR, No edema Respiratory - Normal lung expansion, Normal respiratory effort, No respiratory distress, CTA bilaterally Extremities - no calf tenderness bilaterally, no swelling Skin - Warm/Dry. Extensive erythema, warmth, swelling and induration right lower leg encompassing entire foot, ankle anterior and medial aspect of lower leg. There are scabbed track garrido to BLE without active drainage. There is a 5cm x 5cm area of erythema surrounding injection site medial aspect of LLE without drainage. No fluctuance appreciated Neurological - Alert & oriented x3 Psychological - Appropriate affect Results Labs 12/27/23 16:50 12/27/23 16:50 Labs: Laboratory Results - last 24 hr 12/27/23 16:50 MCV 89.6 MCH 30.7 MCHC 34.2 RDW 12.9 Plt Count 423 H MPV 8.4 L Immature Gran % (Auto) 0.6 H Neut % (Auto) 76.3 H Lymph % (Auto) 11.9 L [place] % (Auto) 9.7 Eos % (Auto) 1.2 Baso % (Auto) 0.3 Lymph # (Auto) 1.1 L [place] # (Auto) 0.9 Eos # (Auto) 0.1 Baso # (Auto) 0.0 Abs Immat Gran (auto) 0.05 H Absolute Neuts (auto) 6.9 Absolute Nucleated RBC 0.000 Nucleated RBC % (auto) 0.0 Anion Gap 12 Estim Creat Clear Calc 173.0 Estimated GFR > 60 Random Glucose 103 Calcium 9.5 Total Bilirubin 0.4 Direct Bilirubin 0.3 AST 63 H ALT 88 H Alkaline Phosphatase 119 H Total Protein 8.2 H Albumin 3.5 Imaging Radiologist's Impressions: Impressions Ankle X-Ray 12/27/23 16:10 IMPRESSION: Right ankle effusion. Right ankle and right dorsal foot soft tissue swelling without bony pathology. Foot X-Ray 12/27/23 16:10 IMPRESSION: Right ankle effusion. Right ankle and right dorsal foot soft tissue swelling without bony pathology. Tibia/Fibula X-Ray 12/27/23 16:10 IMPRESSION: Right ankle effusion. Right ankle and right dorsal foot soft tissue swelling without bony pathology. Venous Duplex 12/27/23 17:31 IMPRESSION: No DVT demonstrated in the right lower extremity. Assessment and Plan (1) Cellulitis of right leg: Status: Acute Plan 48-year-old male with history of peripheral artery disease, hypertension, ongoing IV drug abuse (heroin-last use just prior to arrival), opiate dependence on methadone with history of MSSA bacteremia admitted for further management of extensive cellulitis RLE in IVDA. #Extensive cellulitis involving 50% RLE -no leukocytosis/sepsis. XR negative for osseous abnormality. Venous duplex negative for DVT -check ct RLE w/ contrast to evaluate for abscess -IV vanco and zosyn (initiated 12/26) -Pain management prn -follow cbc, cultures #Uncontrolled HTN -no longer on therapy -initiate amlodipine 10mg -follow bp closely #Active IVDA -check hepatitis panel and HIV. Pt consents to testing -Addiction medicine consult -continue methadone dvt prophylaxis- lovenox full code pt requires inpt stay at least 2 midnights for management of extensive cellulitis involving 50% of RLE in IVDA requiring broad spectrum coverage with IV abx. Quality Stroke Does the patient have a stroke diagnosis?: No VTE Prior VTE?: No VTE Risk Level:: Medical - moderate - high VTE Device Contraindication: Treatment Not Indicated VTE Drug Contraindication: N/A - Med Ordered
[2023-12-27] MEDS: HYDROmorphone HCl 1 MG/ML SYRINGE IVPUSH (21:30)
[2023-12-27] MEDS: amLODIPine Besylate 10 MG TABLET PO (21:30)
[2023-12-27] MEDS: Enoxaparin Sodium 40 MG/0.4 ML SYRINGE SUBCUT (21:30)
[2023-12-27 21:44] LABS: Lactic Acid 0.9 mmol/L (0.5-2.0)
[2023-12-27] MEDS: Piperacillin Sodium/Tazobactam 3.375 GM in 0.9 % Sodium Chloride 50 ML IV (21:46)
[2023-12-27 21:47] LABS: C Reactive Protein 19.14 mg/dL (< or = 0.50)
[2023-12-27 22:14] LABS: Erythrocyte Sedimentation Rate 86 MM/HR (0-15)
[2023-12-27 22:26] VITALS: BP 188/93; PULSE 96
[2023-12-27] MEDS: iohexoL 350 MG/ML 100 ML INFUS..BTL 85 ML IV (22:34)
[2023-12-27] MEDS: vancomycin/NS 2,000 MG/500 ML PLAST..BAG 250 MG IV (22:34)
--- NOTE | 2023-12-27 22:46 | PHA.PROG ---
Admission Date/Time: December 27, 2023 20:33 Indication: cellulitis, ivdu Weight in k.945 kg Adjusted body weight in K kg [place] body weight in K.3 Obesity Dosing Indication % IBW: 148% Serum Creatinine - Last 168 Hours 12/27/23 16:50 Creatinine 0.66 Estimated CrCl and GFR - Last 168 Hours 12/27/23 16:50 Estim Creat Clear Calc 173.0 Estimated GFR > 60 Vancomycin Loading Dose: 2000 mg Current Vancomycin Dosing Regimen: 1500 mg Q12H Date and Time for next Vancomycin Level to be drawn: 12/28 @ 1100 Pharmacist Comments on Vancomycin Plan: patient received an adequate load dose in the ER 12/26 @ 1937 maitenance dose vancomync 1500 mg Q12H is scheduled to start 12/27 @ 1100. Predicted AUC 550 with a torugh of 17.4 Patient is consider obese with %ibw > 130% therefore careful monitor is required due to vancomycin's high volume of distribution Level will be drawn prior to 4th dose Pharmacy will monitor renal function daily Amanda Tate PharmD Vancomycin dosing will take advantage of [employer] as a clinical decision support tool that uses Bayesian modeling to calculate individual patient's pharmacokinetic parameters and forecast the patient's drug concentration time course with the target goal AUC 24 range of 400 - 600 mg/L/hr.
--- NOTE | 2023-12-27 22:52 | PC.NURSE ---
late entry- this rn assumed care of pt @ 1915. good palmer to bedside for assessment. orders placed for meds and additional blood wokr. this rn attempted x2 for IV / blood wokr. charge nurse attempted x3 for iv and bloodwork. PA /admitting pa made aware of delay. roel palmer placed us guided iv in R AC 20 g. blood work obtained pt medicated according to luis manuel pt awaiting bed assignment
--- NOTE | 2023-12-27 23:00 | PC.NURSE ---
@ 6722 this rn made albaro palmer aware of bp 188/93. per onur no new orders at this time. pt reports pain is coming down to 5/10 at this time
[2023-12-27 23:18] VITALS: BP 174/89; PULSE 87; RESP 14; TEMP 36.8; O2SAT 97
[2023-12-28] VITALS (8 sets, daily range): BP systolic 144–194; BP diastolic 71–105; PULSE 82–103; RESP 18–20; TEMP 36.5–37.6; O2SAT 93–98
[2023-12-28] MEDS: Piperacillin Sodium/Tazobactam 3.375 GM in 0.9 % Sodium Chloride 50 ML IV ×4 (02:58→20:33)
[2023-12-28 04:27] LABS: HBc Num1 0.16 S/CO (0.00-0.79); HBsAGNum1 0.52 S/CO (0.00-0.99); HIV AB/AG Nonreactive (Nonreactive); HIV Num 1 0.09 S/CO (0.00-0.99); Hepatitis B Core Antibody Nonreactive (Nonreactive); Hepatitis B Surface Antigen Negative (Negative); ~HepC Num1 17.53 S/CO (0.00-0.79); ~Hepatitis B Surface Antibody NONREACTIVE (Nonreactive); ~Hepatitis C Antibody Reactive (Nonreactive)
[2023-12-28] MEDS: amLODIPine Besylate 10 MG TABLET PO (05:59)
[2023-12-28 06:11] LABS: MANUAL DIFF FLAG NO
[2023-12-28 06:20] LABS: Basophils Percent Auto 0.3 % (0-2); Eosinophils Absolute Auto 0.1 X10*3/uL (0.0-0.4); Eosinophils Percent Auto 0.5 % (0-4); Hematocrit 35.9 % (42.0-52.0); Hemoglobin 12.3 g/dl (14.0-18.0); Imm Gran Abs Auto 0.05 X10*3/uL (0.00-0.03); Imm Gran Pct Auto 0.5 % (0.0-0.4); Lymphocytes Absolute Auto 1.2 X10*3/uL (1.2-4.9); Mean Corpuscular HGB Conc 34.3 g/dl (31.0-36.0); Mean Corpuscular Hemoglobin 30.4 pg (27.0-33.0); Mean Corpuscular Volume 88.9 fL (80.0-98.0); Mean Platelet Volume 8.9 fL (9.4-12.4); Monocytes Absolute Auto 0.9 X10*3/uL (0.1-1.2); Monocytes Percent Auto 9.7 % (2-11); Neutrophils Absolute Auto 7.2 x10*3/uL (2.0-8.3); Platelet Count 453 X10*3/uL (160-400); Red Blood Count 4.04 X10*6/uL (4.60-5.80); Red Cell Distribution Width 12.8 % (11.0-16.0); White Blood Count 9.5 X10*3/uL (4.8-10.8)
[2023-12-28 06:26] LABS: Anion Gap 13 (12-20); Blood Urea Nitrogen 9 mg/dL (9-16); Calcium 9.5 mg/dL (8.4-10.2); Carbon Dioxide 26 mmol/L (22-29); Chloride 100 mmol/L (96-108); Creatinine Clr Calc Pharmacy 154.3; Estimated Glomerular Filt Rate > 60; Glucose Random 138 mg/dL (60-115); Potassium 3.9 mmol/L (3.3-5.1); Sodium 135 mmol/L (135-145)
--- NOTE | 2023-12-28 06:50 | PC.NURSE ---
Patient arrived to ED overflow from the main ED at 01:20 this morning, awaiting bed assignment; Assumed care at this time. Pt is here awaiting admit for RLE cellulitis 2/2 IVDU, which patient is forthright about on assessment, stating ?I relapsed?. Active listening and reassurance provided. Pt requested a sandwich and drink which was given and tolerated. RLE is hot to touch with non-pitting edema and red with dark garrido consistent with IVDU. No active open areas or drainage noted. +pp/cms. Cellulitis to knee was observed outlined on assessment and remains unchanged from outline. Pt denies pain at this time, encouraged to call should he develop pain. Breathing is even and unlabored without distress. BP elevated 179/94 on recheck after allowing pt to settle from arrival. Pt denies symptoms. Covering hospitalist Dr. Quiñones notified, no new orders advised. Patient resting in bed without distress.? BP high on morning vitals 182/84 HR 89. Pt denies headache and other symptoms when assessed. Covering Dr. Quiñones notified with orders to give 09:00 amlodipine now. Given, reassess to be done on next set of vitals on day shift. Handoff report given to oncoming RN at 06:45.??
--- NOTE | 2023-12-28 07:28 | PC.NURSE ---
Resumed care of patient, he offers no complaints at this time, all needs met. Awaiting [facility] clinic to open to verify Methadone dose at this time. Awiating bed placement.
[2023-12-28] MEDS: 0.9 % Sodium Chloride Flush 3 ML SYRINGE IVFLUSH ×2 (08:59→13:52)
--- NOTE | 2023-12-28 09:01 | PM.CNOR ---
History of Present Illness HPI Consult date: 12/28/23 Chief complaint: cellulitis IVDA Narrative: 48-year-old male with history of peripheral artery disease, hypertension, ongoing IV drug abuse (heroin-last use just prior to arrival), opiate dependence on methadone with history of MSSA bacteremia admitted to the medical service for iv abx and management redness, pain, swelling in the right lower extremity ongoing for 4 days. He admits to injecting heroin into the bilateral lower extremities on a regular basis, more often in the left than right. However about 4 days ago noted increasing redness and swelling of the right lower leg without any active drainage. a CT scan was obtained on the right foot which showed: Complex, peripherally-enhancing fluid in the region of the posterior tibial tendon sheath, extending from the distal tendon insertion proximally beyond the imaged [id number], concerning for infectious tenosynovitis versus abscess formation. This measures up to 1.5 x 1.0 cm in greatest axial dimension Orthopedics was constuled for further recommendations. . [facility] Past Medical History Medical History Opioid dependence HTN (hypertension) PAD (peripheral artery disease) Active substance abuse Social History Social History Household Members: Family Household Members Other:: 2 Housing: Other Housing Other:: duplex Do you presently have visiting nurse or other home services: No Alcohol intake: never Comment: Refusing alarms. Patient Tobacco Use Status: Current everyday Tobacco user Tobacco use type: Cigarette Cigarettes Per Day: 2 e-Cigarette/Vaping Use: Currently Using Substance Use Type: Heroin, Marijuana and Opiates service: No Current occupational status: disabled Meds Allergies Allergy/AdvReac Type Severity Reaction Status Date / Time shellfish derived Allergy Unknown ANGIOEDEMA Verified 01/13/22 11:01 [SHELLFISH DERIVED] shellfish Allergy Unknown anaphylaxis Uncoded 12/14/21 13:50 Active Medications: Current Medications Acetaminophen (Acetaminophen 325 Mg Tablet) 650 mg PO Q6H PRN PRN Reason: Pain, Mild (Pain Scale 1-3) Amlodipine Besylate (Amlodipine Besylate 10 Mg Tablet) 10 mg PO DAILY [facility]; Protocol Last Admin: 12/28/23 05:59 Dose: 10 mg Enoxaparin Sodium (Enoxaparin Sodium 40 Mg/0.4 Ml Syringe) 40 mg SUBCUT Q24H [facility] Last Admin: 12/27/23 21:30 Dose: 40 mg Piperacillin Sod/Tazobactam (Sod 3.375 gm/ Sodium Chloride) 50 mls @ 100 mls/hr IV Q6H [facility] Last Admin: 12/28/23 08:59 Dose: 100 mls/hr Vancomycin HCl 1,500 mg/ (Sodium Chloride) 500 mls @ 333.333 mls/hr IV Q12H [facility] Methadone HCl (Methadone Hcl 20 Mg/2 Ml Oral.Conc) 125 mg PO DAILY [facility] Morphine Sulfate (Morphine Sulfate 4 Mg/Ml Cartridge) 4 mg IVPUSH Q4H PRN; Protocol PRN Reason: Pain, Severe (Pain Scale 7-10) Ondansetron HCl (Ondansetron Hcl 4 Mg/2 Ml Vial) 4 mg IVPUSH Q8H PRN PRN Reason: Nausea and Vomiting Oxycodone HCl (Oxycodone Hcl Immed Release 5 Mg Tablet) 5 mg PO Q6H PRN PRN Reason: Pain, Moderate(Pain Scale 4-6) Pharmacy Consult (Consult Rx Vancomycin Dosing) 1 each MISCELLANE DAILY PRN PRN Reason: Consult order Senna (Sennosides 8.6 Mg Tablet) 17.2 mg PO BEDTIME PRN PRN Reason: Constipation Sodium Chloride (0.9 % Sodium Chloride Flush 3 Ml Syringe) 3 ml IVFLUSH QSHIFT [facility] Last Admin: 12/28/23 08:59 Dose: 3 ml Home Medications Medication Instructions Recorded Confirmed Last Taken Type methadone 10 mg/mL oral 125 mg PO DAILY 12/27/23 12/28/23 12/27/23 History concentrate (Methadose) Physical Exam Vital Signs: Vital Signs: Last Vital Signs Temp 98.4 F 12/28/23 08:43 Pulse 103 H 12/28/23 08:43 Resp 18 12/28/23 08:43 BP 144/80 H 12/28/23 08:43 Pulse Ox 95 12/28/23 08:43 O2 Del Method Room Air 12/28/23 08:43 BMI result Body Mass Index 34.7 Const: General: cooperative, healthy appearing and comfortable Extrem: Other: right foot cellulitis from the tibia down into the foot with tenderness along the medial aspect of the ankle. No fluctulance. No open wounds or drainage. He is able to dorsi and plantar flex. NVI. Results Labs 12/28/23 05:46 01/02/24 05:44 Labs: Abnormal lab results 12/27/23 12/27/23 12/28/23 Range/Units 16:50 21:22 05:46 RBC 4.14 L 4.04 L (4.60-5.80) X10*6/uL Hgb 12.7 L 12.3 L (14.0-18.0) g/dl Hct 37.1 L 35.9 L (42.0-52.0) % Plt Count 423 H 453 H (160-400) X10*3/uL MPV 8.4 L 8.9 L (9.4-12.4) fL Immature Gran % (Auto) 0.6 H 0.5 H (0.0-0.4) % Neut % (Auto) 76.3 H 76.0 H (45-73) % Lymph % (Auto) 11.9 L 13.0 L (20-40) % Lymph # (Auto) 1.1 L (1.2-4.9) X10*3/uL Abs Immat Gran (auto) 0.05 H 0.05 H (0.00-0.03) X10*3/uL ESR 86 H (0-15) MM/HR Random Glucose 138 H (60-115) mg/dL AST 63 H (5-37) U/L ALT 88 H (0-40) U/L Alkaline Phosphatase 119 H (39-117) U/L C-Reactive Protein 19.14 H (< or = 0.50) mg/dL Total Protein 8.2 H (6.5-8.0) g/dL Hepatitis C Ab (EIA) Reactive H (Nonreactive) H & H 12/27/23 12/28/23 Range/Units 16:50 05:46 Hgb 12.7 L 12.3 L (14.0-18.0) g/dl Hct 37.1 L 35.9 L (42.0-52.0) % All other labs normal. Assessment and Plan (1) Cellulitis of right leg: Status: Acute Plan CT foot RT w IV con IMPRESSION: 1. Circumferential subcutaneous edema and stranding at the ankle, with extension along the dorsal aspect of the foot. Mild associated skin thickening. Findings are consistent with cellulitis. 2. Complex, peripherally-enhancing fluid in the region of the posterior tibial tendon sheath, extending from the distal tendon insertion proximally beyond the imaged [id number], concerning for infectious tenosynovitis versus abscess formation. This measures up to 1.5 x 1.0 cm in greatest axial dimension. 3. Small tibiotalar joint effusion. Continue IV abx No obvious abscess formation at this time will continue to monitor Procedures Date of Service Date of Service: 01/03/24
--- NOTE | 2023-12-28 09:39 | PC.NURSE ---
Methadone verified, aware, pharmacy form faxed down
--- NOTE | 2023-12-28 09:41 | HO.PM.IMPN ---
Subjective Subjective Date of Service: 12/28/23 Interval History: c/o RLE pain, redness though swelling improved; no fever Review of Systems Review of Systems: Yes all other systems are reviewed and are negative Physical Exam Vital Signs: Vital Signs: Last Vital Signs Temp 98.4 F 12/28/23 08:43 Pulse 103 H 12/28/23 08:43 Resp 18 12/28/23 08:43 BP 144/80 H 12/28/23 08:43 Pulse Ox 95 12/28/23 08:43 O2 Del Method Room Air 12/28/23 08:43 BMI result Body Mass Index 34.7 Gen: in no acute distress HEENT: sclera anicteric, moist mucus membranes Neck: supple Lungs: clear to auscultation bilaterally Heart: regular rate and rhythm, no murmurs Abd: soft, non-tender, non-distended Ext: extensive erythema, induration, and tenderness of entire R foot, ankle, and medial lower leg; no fluctuance Skin: warm/well-perfused Neuro: alert and oriented x3, no focal findings Psych: appropriate affect Objective Data Active Medications Acetaminophen (Acetaminophen 325 Mg Tablet) 650 mg PO Q6H PRN PRN Reason: Pain, Mild (Pain Scale 1-3) Amlodipine Besylate (Amlodipine Besylate 10 Mg Tablet) 10 mg PO DAILY [facility]; Protocol Last Admin: 12/28/23 05:59 Dose: 10 mg Documented By: CÉSAR Comments: Given now per Dr. Quiñones order; see nurse communication order Enoxaparin Sodium (Enoxaparin Sodium 40 Mg/0.4 Ml Syringe) 40 mg SUBCUT Q24H [facility] Last Admin: 12/27/23 21:30 Dose: 40 mg Documented By: GWEN Piperacillin Sod/Tazobactam (Sod 3.375 gm/ Sodium Chloride) 50 mls @ 100 mls/hr IV Q6H [facility] Last Infusion: 12/28/23 09:40 Dose: Infused Documented By: SERGIO Vancomycin HCl 1,500 mg/ (Sodium Chloride) 500 mls @ 333.333 mls/hr IV Q12H [facility] Methadone HCl (Methadone Hcl 20 Mg/2 Ml Oral.Conc) 125 mg PO DAILY [facility] Morphine Sulfate (Morphine Sulfate 4 Mg/Ml Cartridge) 4 mg IVPUSH Q4H PRN; Protocol PRN Reason: Pain, Severe (Pain Scale 7-10) Ondansetron HCl (Ondansetron Hcl 4 Mg/2 Ml Vial) 4 mg IVPUSH Q8H PRN PRN Reason: Nausea and Vomiting Oxycodone HCl (Oxycodone Hcl Immed Release 5 Mg Tablet) 5 mg PO Q6H PRN PRN Reason: Pain, Moderate(Pain Scale 4-6) Pharmacy Consult (Consult Rx Vancomycin Dosing) 1 each MISCELLANE DAILY PRN PRN Reason: Consult order Senna (Sennosides 8.6 Mg Tablet) 17.2 mg PO BEDTIME PRN PRN Reason: Constipation Sodium Chloride (0.9 % Sodium Chloride Flush 3 Ml Syringe) 3 ml IVFLUSH QSHIFT [facility] Last Admin: 12/28/23 08:59 Dose: 3 ml Documented By: SERGIO Labs 12/28/23 05:46 12/28/23 05:46 Labs: Laboratory Results - last 24 hr 12/27/23 12/27/23 12/28/23 16:50 21:22 05:46 MCV 89.6 88.9 MCH 30.7 30.4 MCHC 34.2 34.3 RDW 12.9 12.8 Plt Count 423 H 453 H MPV 8.4 L 8.9 L Immature Gran % (Auto) 0.6 H 0.5 H Neut % (Auto) 76.3 H 76.0 H Lymph % (Auto) 11.9 L 13.0 L Gila % (Auto) 9.7 9.7 Eos % (Auto) 1.2 0.5 Baso % (Auto) 0.3 0.3 Lymph # (Auto) 1.1 L 1.2 Gila # (Auto) 0.9 0.9 Eos # (Auto) 0.1 0.1 Baso # (Auto) 0.0 0.0 Abs Immat Gran (auto) 0.05 H 0.05 H Absolute Neuts (auto) 6.9 7.2 Absolute Nucleated RBC 0.000 0.000 Nucleated RBC % (auto) 0.0 0.0 ESR 86 H Anion Gap 12 13 Estim Creat Clear Calc 173.0 154.3 Estimated GFR > 60 > 60 Random Glucose 103 138 H Lactic Acid 0.9 Calcium 9.5 9.5 Total Bilirubin 0.4 Direct Bilirubin 0.3 AST 63 H ALT 88 H Alkaline Phosphatase 119 H C-Reactive Protein 19.14 H Total Protein 8.2 H Albumin 3.5 Hep Bs Antigen Negative Hep Bs Antibody NONREACTIVE Hep B Core Total Ab Nonreactive Hepatitis C Ab (EIA) Reactive H HIV 1&2 Ab/P24 Ag 4thGn Nonreactive Assessment and Plan (1) Cellulitis of right leg: Status: Acute Plan d2 48yo M with IDU, PAD, HTN, OUD on methadone, hx MSSA bacteremia admitted with extensive RLE cellulitis with possible abscess vs tenosynovisits of posterior tibial tendon cellulitis with abscess vs tenosynovitis - Ortho consult - vanco + pip/lukas 12/26-, follow BCx; may need ID consultation HTN urgency - improved, on amlodipine HCV Ab+ - viral load OUD - Addiction Med consultation - methadone per home dosing VTE ppx - LMWH dispo - TBD In my clinical judgment, the patient requires continued inpatient hospitalization for the following reasons: IV ABX, specialty consultation Total time managing care of this patient today: 35 minutes. Quality Stroke Does the patient have a stroke diagnosis?: No VTE Prior VTE?: No VTE Risk Level:: Medical - moderate - high VTE Device Contraindication: Treatment Not Indicated VTE Drug Contraindication: N/A - Med Ordered
--- NOTE | 2023-12-28 09:51 | HE.PHANOTE ---
RE METHADONE Patient gets dosed with methadone with [facility] on [facility]. [phone]. Dosed with 125 mg, on 12/22 and was given take home bottles to last to 12/27
[2023-12-28] MEDS: methADONE HCl 20 MG/2 ML ORAL.CONC 125 MG PO (10:06)
[2023-12-28] MEDS: vancomycin HCL 1,500 MG in 0.9 % Sodium Chloride 500 ML 333.33 MG IV ×2 (11:09→22:35)
--- NOTE | 2023-12-28 13:04 | MHC.CM.PN ---
PT REPORTS HE LIVES WITH HIS MOTHER WHO IS AT BEDSIDE PT IS INDEPENDENT WITH CARE, HAS NO DME AND NO SERVICES PT HAS A HCP ON FILE HE DENIES HAVING A PCP BUT STATES E DOES KNOW HOW TO OBTAIN ONE WITH HIS INSURANCE DCP: HOME NO SERVICES VIA PRIVATE TRANSPORT
--- NOTE | 2023-12-28 15:06 | MHC.EDTECH ---
emptied urinal at 500cc, tea color urine
--- NOTE | 2023-12-28 17:52 | MHC.EDTECH ---
pt ate 100% of his dinner, 480cc of fluids
--- NOTE | 2023-12-28 19:26 | PC.NURSE ---
Assumed care of pt at 19:00. PT laying in bed, a & o x 4, offers no complaints as of now. RLE red and warm to touch however pt is able to move all toes and reports great improvement in swelling and pain since starting IV ABX. Plan of care ongoing. Call salazar placed within reach.
[2023-12-28] MEDS: Enoxaparin Sodium 40 MG/0.4 ML SYRINGE SUBCUT (20:34)
--- NOTE | 2023-12-28 22:57 | MHC.EDTECH ---
pt drank 240cc of vilma mauricio, and a couple vu crackers
[2023-12-29] MEDS: 0.9 % Sodium Chloride Flush 3 ML SYRINGE IVFLUSH ×4 (00:13→19:29)
[2023-12-29] MEDS: Morphine Sulfate 4 MG/ML CARTRIDGE IVPUSH (01:52)
[2023-12-29] MEDS: Piperacillin Sodium/Tazobactam 3.375 GM in 0.9 % Sodium Chloride 50 ML IV ×4 (02:00→21:46)
[2023-12-29] MEDS: amLODIPine Besylate 10 MG TABLET PO (04:34)
[2023-12-29 04:35] VITALS: BP 180/79; PULSE 80; RESP 18; TEMP 37.7; O2SAT 96
--- NOTE | 2023-12-29 04:38 | PC.NURSE ---
PT's bp found to be 180/79 HR 80 during AM vitals check. PT currently offering no physical complaints. Dr. Quioñnes made aware. Okay to give am dose of Amlodipine 10 mg now.
[2023-12-29 06:22] LABS: Creatinine Clr Calc Pharmacy 142.7; Estimated Glomerular Filt Rate > 60
[2023-12-29 06:24] VITALS: BP 174/83; PULSE 86; RESP 16
--- NOTE | 2023-12-29 06:25 | PC.NURSE ---
Recheck BP after Amlodipine; 174/[address] Quiñones made aware via [facility]. No new orders @ this time.
--- NOTE | 2023-12-29 07:00 | CA_ITS ---
Transthoracic Echocardiogram Patient (Last, First, Middle): Sven Mcpherson M Gender: Male Date of : 1975 Age: 48 Procedure Date: 12/29/2023 Procedure Type: Transthoracic Echocardiogram Location: ER Height: 180.34 cm Weight: 10.89 kg BSA: 0.86 m2 Heart Rate: 76 bpm BP: 174 / 83 mmHg Phytopathologist: Referring MD: Stephen Ruiz MD Barback: Edward Hastings MD Symptoms: endocarditis r/o Study Quality: Adequate ECG Rhythm: Sinus Conclusions: - 1. Technically limited study 2. Cardiac valvular vegetations can not be entirely ruled out on this study 3. Low normal LVEF of 50-55% with impaired relaxation filling pattern 4. Trace aortic regurgitation 5. Normal measured RV systolic pressure 6. Mildly dilated ascending aorta measured on one view at 3.7 cm Findings Left Ventricle The left ventricle was not well visualized. Normal left ventricular cavity size. The left ventricular systolic function is low normal. The visually estimated ejection fraction is between 50-55%. Regional wall motion abnormalities can not be excluded due to suboptimal endocardial definition. Spectral Doppler is indicative of a normal filling pattern. Right Ventricle The right ventricle was not well visualized. Atria The left atrium is moderately dilated. Interatrial shunt cannot be excluded. The right atrium was not well visualized. Aortic Valve The aortic valve was not well visualized. There is no aortic valve stenosis. There is trace (trivial) aortic valve regurgitation. Mitral Valve There is mild anterior and posterior mitral leaflet thickening. There is no mitral valve regurgitation. There is no mitral valve stenosis. Pulmonic Valve The pulmonic valve was not well visualized. Tricuspid Valve The tricuspid valve was not well visualized. The right ventricular systolic pressure is normal. The right ventricular systolic pressure is 20 mmHg. Normal right atrial pressure. Great Vessels The aorta was not well visualized. The pulmonary artery was not well visualized. There is mild dilatation of the ascending aorta measuring 3.70 cm. Venous The inferior vena cava is normal in size and collapses greater than 50% with inspiration. Pericardium/Pleural The pericardium was not well visualized. Prior Study Comparison No significant change compared to prior study dated: 11/26/2021. Recommendations, Care & Conclusions Recommend contrast in the future to improve endocardial definition. Measurements 2D Linear Measurements LVOT Diam: 2.10 3.0+(-)1.3 cm 2D Systolic Function EF 4C: 58.70 >55% EF 2C: 48.00 >55% EF BiP: 51.80 >55% Mitral Valve MV Pk E: 0.83 MV PK A: 0.82 MV Decel Time: 192.00 E/A: 1.00 E'Lateral: 8.92 E'Medial: 7.18 E/E' Med: 11.50 E/E' Lat: 9.30 PHT: 56.00 MVA PHT: 3.93 Decel [place]: 4.30 Aortic Valve AoV Pk Erasto: 1.56 AoV Mn Erasto: 0.98 AoV VTI: 0.36 AoV Pk Grad: 10.00 Aov Mn Grad: 5.00 MARCIE Cont.VTI: 2.30 LVOT LVOT Pk Erasto: 1.13 LVOT Mn Erasto: 0.78 LVOT VTI: 0.24 LVOT Pk Grad: 5.00 LVOT Mn Grad: 3.00 LVOT Diam: 2.10 LVOT Area: 3.46 Diastolic Function MV Pk E: 0.83 MV Pk A: 0.82 E/A: 1.00 E'Medial: 7.18 E/E' Med: 11.50 E' Laterial: 8.92 E/E' Lat: 9.30 Right Ventricle TAPSE (mm): 29.60 Tricuspid Valve TR Pk Erasto: 2.05 TR Pk Grad: 17.00 RA Press: 3.00 RVSP: 20.00 Great Vessels Aorta Sinus of Valsalva: 3.40 2.0-3.5 cm Ao Asc: 3.70 2.1-3.4 cm Pulmonary Valve PV Pk Erasto: 1.30 Peak PV Grad: 7.00 Updated in Other Vendor System with Status of Final Edward Hastings MD electronically signed on 12/29/2023 4:33:00 PM with status of Final
[2023-12-29] MEDS: methADONE HCl 20 MG/2 ML ORAL.CONC 125 MG PO (07:48)
--- NOTE | 2023-12-29 07:59 | PC.NURSE ---
ASSUMED CARE AT 0700. PT A+O x3, HE DENIES PAIN. R FOOT SWOLLEN/RED/TENDER TO TOUCH. PT ABLE TO MOVE ANKLE WITH MINIMAL DISCOMFORT. AMLODIPINE GIVEN AT 0434 BY PREVIOUS RN. LAST VS DOCUMENTED AT 06. MEDS GIVEN DOCUMENTED. PT RESTING COMFORTABLE AT THIS TIME, NO APPARENT DISTRESS.
[2023-12-29 10:00] VITALS: BP 159/81; PULSE 94; RESP 17; TEMP 36.2; O2SAT 94
[2023-12-29 10:18] LABS: Vancomycin Trough 6.7 mcg/mL (10.0-20.0)
--- NOTE | 2023-12-29 10:34 | HE.PHANOTE ---
RE MARGO Patients level came back this morning at 6.7. Patients level is very low, will change frequency to Q8H and leave dose at 1500 mg. Next draw to be done 12/29 @1700. Predicted AUC 527
--- NOTE | 2023-12-29 12:00 | HO.PM.IMPN ---
Subjective Subjective Date of Service: 12/29/23 Interval History: afebrile leg redness/pain improving 1/2 BCx growing Staph aureus Review of Systems Review of Systems: Yes all other systems are reviewed and are negative Physical Exam Vital Signs: Vital Signs: Last Vital Signs Temp 97.2 F 12/29/23 10:00 Pulse 94 12/29/23 10:00 Resp 17 12/29/23 10:00 BP 159/81 H 12/29/23 10:00 Pulse Ox 94 12/29/23 10:00 O2 Del Method Room Air 12/29/23 10:00 BMI result Body Mass Index 34.7 Gen: in no acute distress HEENT: sclera anicteric, moist mucus membranes Neck: supple Lungs: clear to auscultation bilaterally Heart: regular rate and rhythm, no murmurs Abd: soft, non-tender, non-distended Ext: extensive erythema, induration, and tenderness of entire R foot, ankle, and medial lower leg; no fluctuance Skin: warm/well-perfused Neuro: alert and oriented x3, no focal findings Psych: appropriate affect Objective Data Active Medications Acetaminophen (Acetaminophen 325 Mg Tablet) 650 mg PO Q6H PRN PRN Reason: Pain, Mild (Pain Scale 1-3) Amlodipine Besylate (Amlodipine Besylate 10 Mg Tablet) 10 mg PO DAILY [facility]; Protocol Last Admin: 12/29/23 04:34 Dose: 10 mg Documented By: EILEEN Enoxaparin Sodium (Enoxaparin Sodium 40 Mg/0.4 Ml Syringe) 40 mg SUBCUT Q24H [facility] Last Admin: 12/28/23 20:34 Dose: 40 mg Documented By: EILEEN Piperacillin Sod/Tazobactam (Sod 3.375 gm/ Sodium Chloride) 50 mls @ 100 mls/hr IV Q6H [facility] Last Infusion: 12/29/23 08:18 Dose: Infused Documented By: VSETA Vancomycin HCl 1,500 mg/ (Sodium Chloride) 500 mls @ 333.333 mls/hr IV Q8H [facility] Methadone HCl (Methadone Hcl 20 Mg/2 Ml Oral.Conc) 125 mg PO DAILY [facility] Last Admin: 12/29/23 07:48 Dose: 125 mg Documented By: SVETA Morphine Sulfate (Morphine Sulfate 4 Mg/Ml Cartridge) 4 mg IVPUSH Q4H PRN; Protocol PRN Reason: Pain, Severe (Pain Scale 7-10) Last Admin: 12/29/23 01:52 Dose: 4 mg Documented By: EILEEN Ondansetron HCl (Ondansetron Hcl 4 Mg/2 Ml Vial) 4 mg IVPUSH Q8H PRN PRN Reason: Nausea and Vomiting Oxycodone HCl (Oxycodone Hcl Immed Release 5 Mg Tablet) 5 mg PO Q6H PRN PRN Reason: Pain, Moderate(Pain Scale 4-6) Pharmacy Consult (Consult Rx Vancomycin Dosing) 1 each MISCELLANE DAILY PRN PRN Reason: Consult order Senna (Sennosides 8.6 Mg Tablet) 17.2 mg PO BEDTIME PRN PRN Reason: Constipation Sodium Chloride (0.9 % Sodium Chloride Flush 3 Ml Syringe) 3 ml IVFLUSH QSHIFT [facility] Last Admin: 12/29/23 07:50 Dose: 3 ml Documented By: SVETA Labs 12/28/23 05:46 12/29/23 05:56 Labs: Laboratory Results - last 24 hr 12/29/23 12/29/23 05:56 09:52 Hold Purple Top SEE NOTE Estim Creat Clear Calc 142.7 Estimated GFR > 60 Hold Yellow Top See Note Vancomycin Trough 6.7 L Microbiology Microbiology Results: Microbiology 12/27/23 21:22 Blood Culture - Final Blood - Venous Bacillus species 12/27/23 21:22 Blood Culture - Preliminary Blood - Venous Staphylococcus aureus Bacillus species Assessment and Plan (1) Cellulitis of right leg: Status: Acute Plan d3 48yo M with IDU, PAD, HTN, OUD on methadone, hx MSSA bacteremia admitted with extensive RLE cellulitis with possible abscess vs tenosynovisits of posterior tibial tendon cellulitis with abscess vs tenosynovitis Staphylococcus aureus bacteremia - Ortho consulted, possible washout tomorrow [for which NPO after midnight] - vanco + pip/lukas 12/26-, follow speciation/sensitivities, TTE, repeat BCx 12/29, ID consultation HTN urgency - improved, on amlodipine HCV Ab+ - viral load pending OUD - Addiction Med consultation - methadone per home dosing VTE ppx - LMWH dispo - TBD In my clinical judgment, the patient requires continued inpatient hospitalization for the following reasons: IV ABX, specialty consultation Total time managing care of this patient today: 35 minutes. Quality Stroke Does the patient have a stroke diagnosis?: No VTE Prior VTE?: No VTE Risk Level:: Medical - moderate - high VTE Device Contraindication: Treatment Not Indicated VTE Drug Contraindication: N/A - Med Ordered
[2023-12-29] MEDS: vancomycin HCL 1,500 MG in 0.9 % Sodium Chloride 500 ML 333.33 MG IV ×2 (12:22→19:23)
[2023-12-29 14:00] VITALS: BP 166/85; PULSE 80; RESP 17; TEMP 36.6; O2SAT 93
--- NOTE | 2023-12-29 14:29 | PM.PNORT ---
Subjective Subjective Date of Service: 12/29/23 Interval history: RLE swelling states leg is improving Physical Exam Vital Signs: Vital Signs: Last Vital Signs Temp 97.9 F 12/29/23 14:00 Pulse 80 12/29/23 14:00 Resp 17 12/29/23 14:00 BP 166/85 H 12/29/23 14:00 Pulse Ox 93 12/29/23 14:00 O2 Del Method Room Air 12/29/23 14:00 BMI result Body Mass Index 34.7 Extrem: Other: RLE edema subsiding, redness and pain localized to the medial aspect of the ankle good ROM of the ankle NVI Procedures Date of Service Date of Service: 12/29/23 Progress Note: A&P Assessment and plan (1) Cellulitis of right leg: Status: Acute Assessment and Plan: Continue IV abx NPO until dr misael mojica to determine if I&D warranted given area of concern for abscess in ankle Time Spent With Patient Time: Total time managing care of this patient today ____ minutes. Quality Stroke Does the patient have a stroke diagnosis?: No VTE Prior VTE?: No VTE Risk Level:: Medical - moderate - high VTE Device Contraindication: Treatment Not Indicated VTE Drug Contraindication: N/A - Med Ordered
--- NOTE | 2023-12-29 14:47 | MHC.RECOVRN ---
Met with pt in [facility] after consult placed to Addiction Medicine for JOEL. Pt had presented to the ED with cellulitis to right lower leg, reporting injecting into the area. Upon evaluation, pt admitted for tx of cellulitis and possible I&D. Pt sitting in bed, awake, alert, easily engages in conversation. Pt currently receiving 125 mg methadone through [facility] x over a year. Pt reports having significantly reduced substance use since being on methadone. Currently reports using heroin/fentanyl, 2 bags IV in the am and 2 bags IV in the pm x a couple months. Prior to that, pt reports having been in recovery x 1.5 years. Pt reports utilizing AA and staying busy to assist with recovery. Pt plans to return to AA after discharge. Reports daily meetings are helpful. Discussed other recovery support options, including recovery coaching, pt declines referrals. Pt provided with written recovery resources as well as t/w contact information if needed Pt denies questions or concerns for t/w. Discussed with Sabi Oliveros APRN.
[2023-12-29 15:43] VITALS: BMI 37.0
[2023-12-29 15:55] VITALS: BP 172/88; PULSE 84; RESP 18; TEMP 36.9; O2SAT 96
--- NOTE | 2023-12-29 16:26 | PM.PNORT ---
Subjective Subjective Date of Service: 12/29/23 Principal diagnosis: right leg cellulitis Interval history: Mr. Mcpherson is seen resting comfortably in bed this afternoon. The patient states that the swelling and discomfort in his right lower leg has improved significantly since his admission to the hospital 2 days ago. The patient states that he can now move his ankle with minimal discomfort. Physical Exam Vital Signs: Vital Signs: Last Vital Signs Temp 98.5 F 12/29/23 15:55 Pulse 84 12/29/23 15:55 Resp 18 12/29/23 15:55 BP 172/88 H 12/29/23 15:55 Pulse Ox 96 12/29/23 15:55 O2 Del Method Room Air 12/29/23 15:55 BMI result Body Mass Index 37.0 Extrem: Other: Right lower leg examination shows diffuse swelling, minimal discomfort with active foot dorsiflexion and plantar flexion, no palpable mass along the posterior aspect of his medial malleolus Procedures Date of Service Date of Service: 12/29/23 Progress Note: A&P Assessment and plan (1) Cellulitis of right leg: Status: Acute Plan Mr. Mcpherson presents with right lower leg swelling due to cellulitis as well as possible posterior tibialis tenosynovitis versus abscess. I had a lengthy discussion with the patient regarding the treatment options. At this point the patient is not interested in any type of surgical procedure. The patient is clinically improving. Thus, his right lower leg abscess washout for tomorrow was canceled per his request. I will re-evaluate him tomorrow. If he does not continue to make clinical improvement I will further discuss the risks and benefits of exploration and washout. The patient is stable at present. Quality Stroke Does the patient have a stroke diagnosis?: No VTE Prior VTE?: No VTE Risk Level:: Medical - moderate - high VTE Device Contraindication: Treatment Not Indicated VTE Drug Contraindication: N/A - Med Ordered
--- NOTE | 2023-12-29 17:05 | PC.NURSE ---
Pt arrived to unit from ED at approximately 1550. At this time pt A&Ox4, pleasant, and cooperative with care. Redness, warmth, and edema noted on right LE, skin outlined with skin marker from ED marking redness. Pt has track garrido on Bilateral upper and lower extremities, scab noted on left lower leg. IV abx given as ordered. Pt states he uses cane at baseline, scores as a high fall risk due to recent fall at home. All safety measures in place, camera in room. BP elevated MD Ruiz made aware, no new orders at this time.
[2023-12-29 19:24] VITALS: BP 158/81; PULSE 83; RESP 18; TEMP 37.1; O2SAT 96
[2023-12-29] MEDS: Enoxaparin Sodium 40 MG/0.4 ML SYRINGE SUBCUT (21:46)
--- NOTE | 2023-12-29 23:20 | P.CNID_ITS ---
History of Present Illness Data of Consult Service Date: 12/29/23 Requesting physician: Stephen Ruiz Primary Care Provider: None Physician HPI Reason for consult: bacteremia He has been injecting drugs into RLE for last several weeks. He has had redness leg and fever. Review of Systems 2 Review of Systems: Yes all other systems are reviewed and are negative PMFSH Past Medical History Medical History Opioid dependence HTN (hypertension) PAD (peripheral artery disease) Active substance abuse Family History Family history: reviewed and not pertinent Social History Social History Household Members: Family Household Members Other:: 2 Housing: Other Housing Other:: duplex Do you presently have visiting nurse or other home services: No Alcohol intake: never Patient Tobacco Use Status: Current everyday Tobacco user Tobacco use type: Cigarette Cigarettes Per Day: 2 e-Cigarette/Vaping Use: Currently Using Substance Use Type: Heroin, Marijuana and Opiates service: No Current occupational status: disabled Meds Allergies Allergy/AdvReac Type Severity Reaction Status Date / Time shellfish derived Allergy Unknown ANGIOEDEMA Verified 01/13/22 11:01 [SHELLFISH DERIVED] shellfish Allergy Unknown anaphylaxis Uncoded 12/14/21 13:50 Active Medications: Current Medications Acetaminophen (Acetaminophen 325 Mg Tablet) 650 mg PO Q6H PRN PRN Reason: Pain, Mild (Pain Scale 1-3) Amlodipine Besylate (Amlodipine Besylate 10 Mg Tablet) 10 mg PO DAILY [facility]; Protocol Last Admin: 12/29/23 04:34 Dose: 10 mg Enoxaparin Sodium (Enoxaparin Sodium 40 Mg/0.4 Ml Syringe) 40 mg SUBCUT Q24H [facility] Last Admin: 12/29/23 21:46 Dose: 40 mg Vancomycin HCl 1,500 mg/ (Sodium Chloride) 500 mls @ 333.333 mls/hr IV Q8H [facility] Last Infusion: 12/29/23 21:29 Dose: Infused Methadone HCl (Methadone Hcl 20 Mg/2 Ml Oral.Conc) 125 mg PO DAILY [facility] Last Admin: 12/29/23 07:48 Dose: 125 mg Morphine Sulfate (Morphine Sulfate 4 Mg/Ml Cartridge) 4 mg IVPUSH Q4H PRN; Protocol PRN Reason: Pain, Severe (Pain Scale 7-10) Last Admin: 12/29/23 01:52 Dose: 4 mg Ondansetron HCl (Ondansetron Hcl 4 Mg/2 Ml Vial) 4 mg IVPUSH Q8H PRN PRN Reason: Nausea and Vomiting Oxycodone HCl (Oxycodone Hcl Immed Release 5 Mg Tablet) 5 mg PO Q6H PRN PRN Reason: Pain, Moderate(Pain Scale 4-6) Pharmacy Consult (Consult Rx Vancomycin Dosing) 1 each MISCELLANE DAILY PRN PRN Reason: Consult order Senna (Sennosides 8.6 Mg Tablet) 17.2 mg PO BEDTIME PRN PRN Reason: Constipation Sodium Chloride (0.9 % Sodium Chloride Flush 3 Ml Syringe) [address] [facility] Last Admin: 12/29/23 19:29 Dose: 3 ml Home Medications Medication Instructions Recorded Confirmed Last Taken Type methadone 10 mg/mL oral 125 mg PO DAILY 12/27/23 12/28/23 12/27/23 History concentrate (Methadose) Physical Exam 2 Vital Signs: Vital Signs: Last Vital Signs Temp 98.7 F 12/29/23 19:24 Pulse 83 12/29/23 19:24 Resp 18 12/29/23 19:24 BP 158/81 H 12/29/23 19:24 Pulse Ox 96 12/29/23 19:24 O2 Del Method Room Air 12/29/23 19:24 BMI result Body Mass Index 37.0 Extrem: Other: RLE redness Results Labs 12/28/23 05:46 12/29/23 05:56 Labs: BMP 12/29/23 05:56 Creatinine 0.80 Microbiology Microbiology Results: Microbiology 12/27/23 21:22 Blood - Venous Blood Culture - Preliminary Bacillus species 12/27/23 21:22 Blood - Venous Blood Culture - Preliminary Staphylococcus aureus Bacillus species Assessment and Plan (1) Cellulitis of right leg: Status: Acute Plan He has bacteremia,bacillus probably real and staph aureus. I saw him in 2021 with staph blood as well. Stop Zosyn and continue Vancomycin while await sensitivities. Check echo. Probably 4 weeks.
[2023-12-30] MEDS: Acetaminophen 325 MG TABLET 650 MG PO ×2 (01:00→23:51)
[2023-12-30] MEDS: vancomycin HCL 1,500 MG in 0.9 % Sodium Chloride 500 ML 333.33 MG IV (03:16)
[2023-12-30 03:55] VITALS: BP 160/87; PULSE 78; RESP 16; TEMP 36.9; O2SAT 94
[2023-12-30 06:58] LABS: Creatinine Clr Calc Pharmacy 135.4; Estimated Glomerular Filt Rate > 60
[2023-12-30 07:12] VITALS: BP 167/83; PULSE 77; RESP 18; TEMP 36.7; O2SAT 93
--- NOTE | 2023-12-30 08:15 | PM.PNORT ---
Subjective Subjective Date of Service: 12/30/23 Principal diagnosis: right leg cellulitis Interval history: Mr. Mcpherson is seen resting in bed this morning with complaints of mild to moderate discomfort along the medial aspect of his right ankle. He denies any fevers or chills. He states that the redness and swelling has somewhat improved since his admission to the hospital. Physical Exam Vital Signs: Vital Signs: Last Vital Signs Temp 98.0 F 12/30/23 07:12 Pulse 77 12/30/23 07:12 Resp 18 12/30/23 07:12 BP 167/83 H 12/30/23 07:12 Pulse Ox 93 12/30/23 07:12 O2 Del Method Room Air 12/30/23 07:12 BMI result Body Mass Index 37.0 Extrem: Other: Right ankle examination shows mild to moderate discomfort with active range of motion, tenderness along his ankle just posterior to his medial malleolus, no open skin lesions, diffuse edema along his right lower leg Procedures Date of Service Date of Service: 12/30/23 Progress Note: A&P Assessment and plan (1) Cellulitis of right leg: Status: Acute Plan Mr. Mcpherson presents with swelling and discomfort along the posterior aspect of his medial malleolus due to right lower leg cellulitis. I will repeat the CT scan of his right ankle to further evaluate him for a fluid collection. Continue antibiotics as per the medical service. If there is a significant fluid collection on his CT scan I will further discuss with the patient the risks and benefits of a surgical washout. Quality Stroke Does the patient have a stroke diagnosis?: No VTE Prior VTE?: No VTE Risk Level:: Medical - moderate - high VTE Device Contraindication: Treatment Not Indicated VTE Drug Contraindication: N/A - Med Ordered
[2023-12-30] MEDS: methADONE HCl 20 MG/2 ML ORAL.CONC 125 MG PO (08:56)
[2023-12-30] MEDS: amLODIPine Besylate 10 MG TABLET PO (08:56)
[2023-12-30] MEDS: lisinopriL 5 MG TABLET PO (08:56)
[2023-12-30] MEDS: 0.9 % Sodium Chloride Flush 3 ML SYRINGE IVFLUSH ×3 (08:58→20:08)
[2023-12-30 09:33] LABS: Vancomycin Random 19.4 mcg/mL (15-20)
--- NOTE | 2023-12-30 09:34 | HO.PM.IMPN ---
Subjective Subjective Date of Service: 12/30/23 Interval History: declined operative washout leg swelling/redness/pain improved no fever Review of Systems Review of Systems: Yes all other systems are reviewed and are negative Physical Exam Vital Signs: Vital Signs: Last Vital Signs Temp 98.0 F 12/30/23 07:12 Pulse 77 12/30/23 07:12 Resp 18 12/30/23 07:12 BP 167/83 H 12/30/23 07:12 Pulse Ox 93 12/30/23 07:12 O2 Del Method Room Air 12/30/23 07:12 BMI result Body Mass Index 37.0 Gen: in no acute distress HEENT: sclera anicteric, moist mucus membranes Neck: supple Lungs: clear to auscultation bilaterally Heart: regular rate and rhythm, no murmurs Abd: soft, non-tender, non-distended Ext: less erythema, induration, and tenderness of R lower leg; no fluctuance Skin: warm/well-perfused Neuro: alert and oriented x3, no focal findings Psych: appropriate affect Objective Data Active Medications Acetaminophen (Acetaminophen 325 Mg Tablet) 650 mg PO Q6H PRN PRN Reason: Pain, Mild (Pain Scale 1-3) Last Admin: 12/30/23 01:00 Dose: 650 mg Documented By: CHELSEY Amlodipine Besylate (Amlodipine Besylate 10 Mg Tablet) 10 mg PO DAILY [facility]; Protocol Last Admin: 12/30/23 08:56 Dose: 10 mg Documented By: CASEY Enoxaparin Sodium (Enoxaparin Sodium 40 Mg/0.4 Ml Syringe) 40 mg SUBCUT Q24H [facility] Last Admin: 12/29/23 21:46 Dose: 40 mg Documented By: CHELSEY Vancomycin HCl 1,500 mg/ (Sodium Chloride) 500 mls @ 333.333 mls/hr IV Q8H [facility] Last Infusion: 12/30/23 04:48 Dose: Infused Documented By: CHELSEY Lisinopril (Lisinopril 5 Mg Tablet) 5 mg PO DAILY [facility]; Protocol Last Admin: 12/30/23 08:56 Dose: 5 mg Documented By: CASEY Methadone HCl (Methadone Hcl 20 Mg/2 Ml Oral.Conc) 125 mg PO DAILY [facility] Last Admin: 12/30/23 08:56 Dose: 125 mg Documented By: CASEY Morphine Sulfate (Morphine Sulfate 4 Mg/Ml Cartridge) 4 mg IVPUSH Q4H PRN; Protocol PRN Reason: Pain, Severe (Pain Scale 7-10) Last Admin: 12/29/23 01:52 Dose: 4 mg Documented By: EILEEN Ondansetron HCl (Ondansetron Hcl 4 Mg/2 Ml Vial) 4 mg IVPUSH Q8H PRN PRN Reason: Nausea and Vomiting Oxycodone HCl (Oxycodone Hcl Immed Release 5 Mg Tablet) 5 mg PO Q6H PRN PRN Reason: Pain, Moderate(Pain Scale 4-6) Pharmacy Consult (Consult Rx Vancomycin Dosing) 1 each MISCELLANE DAILY PRN PRN Reason: Consult order Senna (Sennosides 8.6 Mg Tablet) 17.2 mg PO BEDTIME PRN PRN Reason: Constipation Sodium Chloride (0.9 % Sodium Chloride Flush 3 Ml Syringe) 3 ml IVFLUSH QSHIFT [facility] Last Admin: 12/30/23 08:58 Dose: 3 ml Documented By: CASEY Labs 12/28/23 05:46 12/30/23 05:57 Labs: Laboratory Results - last 24 hr 12/29/23 12/30/23 09:52 05:57 Hold Purple Top SEE NOTE SEE NOTE Estim Creat Clear Calc 135.4 Estimated GFR > 60 Hold Yellow Top See Note Vancomycin Trough 6.7 L Microbiology Microbiology Results: Microbiology 12/27/23 21:22 Blood Culture - Preliminary Blood - Venous Bacillus species 12/27/23 21:22 Blood Culture - Preliminary Blood - Venous Staphylococcus aureus Bacillus species Assessment and Plan (1) Cellulitis of right leg: Status: Acute Plan d4 48yo M with IDU, PAD, HTN, OUD on methadone, hx MSSA bacteremia admitted with extensive RLE cellulitis with possible abscess vs tenosynovisits of posterior tibial tendon cellulitis with abscess vs tenosynovitis Staphylococcus aureus bacteremia - Ortho consulted, pt declined washout, repeating CT today to see if abscess/tenosynovitis persists - pip-lukas 12/26-12/28, vanco 12/26-, follow methicillin susceptibility, repeat BCx 12/29, ID consulted- will need at least 4 wk IV therapy and will place PICC 12/31 as long as blood cultures clear - TTE 12/29/23: 1. Technically limited study 2. Cardiac valvular vegetations can not be entirely ruled out on this study 3. Low normal LVEF of 50-55% with impaired relaxation filling pattern 4. Trace aortic regurgitation 5. Normal measured RV systolic pressure 6. Mildly dilated ascending aorta measured on one view at 3.7 cm HTN urgency - improved, on amlodipine; add lisinopril HCV Ab+ - viral load pending OUD - Addiction Med consultation - methadone per home dosing VTE ppx - LMWH dispo - STR for long-term IV ABX In my clinical judgment, the patient requires continued inpatient hospitalization for the following reasons: IV ABX, specialty consultation Total time managing care of this patient today: 35 minutes. Quality Stroke Does the patient have a stroke diagnosis?: No VTE Prior VTE?: No VTE Risk Level:: Medical - moderate - high VTE Device Contraindication: Treatment Not Indicated VTE Drug Contraindication: N/A - Med Ordered
--- NOTE | 2023-12-30 10:15 | HE.PHANOTE ---
Vancomycin Dosing Patient level 19.4 today after pervious level of 6.7. Will decrease dose to vancomycin 1250 mg Q8H, new expected AUC 467 with a trough of 12.5. Next level 12/30 @ 0900. Giuseppe JacobsonD
[2023-12-30] MEDS: vancomycin HCL 1,250 MG in 0.9 % Sodium Chloride 250 ML 166.67 MG IV ×2 (12:14→18:38)
--- NOTE | 2023-12-30 12:43 | P.PNID_ITS ---
Subjective Subjective Date of Service: 12/30/23 Critical Care Time (minutes): 15 Comment: he has improvement right foot he has staph aureus and bacillus x2 blood Objective Data Labs 12/28/23 05:46 12/30/23 05:57 Labs: Laboratory Results - last 24 hr 12/30/23 12/30/23 05:57 09:01 Hold Purple Top SEE NOTE Creatinine 0.87 Estim Creat Clear Calc 135.4 Estimated GFR > 60 Random Vancomycin 19.4 Microbiology Microbiology Results: Microbiology 12/27/23 21:22 Blood - Venous Blood Culture - Preliminary Staphylococcus aureus Bacillus species 12/27/23 21:22 Blood - Venous Blood Culture - Preliminary Bacillus species Physical Exam 2 Vital Signs: Vital Signs: Last Vital Signs Temp 98.0 F 12/30/23 07:12 Pulse 77 12/30/23 07:12 Resp 18 12/30/23 07:12 BP 167/83 H 12/30/23 07:12 Pulse Ox 93 12/30/23 07:12 O2 Del Method Room Air 12/30/23 07:12 BMI result Body Mass Index 37.0 Const: General: cooperative HEENT: Head: Yes normal to inspection Face and sinus: Yes normal facial exam Mouth: Normal oral and palatal mucosa present Teeth and gingiva: d entition normal Eyes: General: appearance normal, both eyes and all related structures P upils: Equal, round and reactive pupils present Resp: Effort & Inspection: normal respiratory effort Cardio: Rate: regular rate Rhythm: regular rhythm GI: Palpation (GI): Soft to palpation and nontender : General: Yes no CVA tenderness Back/Spine/Pelvis: Back: no CVA tenderness Skin: General skin exam: no rashes or lesions noted Neuro: General: moves all extremities Cranial nerves: Yes Equal, round and reactive pupils present Extrem: Other: improved RLE Psych: Appearance: grossly normal Assessment and Plan Assessment and plan (1) Cellulitis of right leg: Status: Acute (2) Bacteremia: Status: Acute Plan There is staph aureus and bacillus blood Right foot/leg likely concern There is possible OM He will need tibia MRI check OM PICC ordered ,likely six weeks anyway Continue Vancomycin for now and with bacillus bacteremia probably use Vancomycin anyway and weekly CBC,creatinine and Vancomycin level. Time Spent With Patient Time: Total time managing care of this patient today ____ minutes.
[2023-12-30 15:23] VITALS: BP 136/81; PULSE 82; RESP 20; TEMP 36.8; O2SAT 94
[2023-12-30 19:40] VITALS: BP 134/75; PULSE 81; RESP 20; TEMP 36.9; O2SAT 95
[2023-12-30] MEDS: Enoxaparin Sodium 40 MG/0.4 ML SYRINGE SUBCUT (19:57)
[2023-12-30] MEDS: Sennosides 8.6 MG TABLET 17.2 MG PO (23:50)
[2023-12-31] MEDS: vancomycin HCL 1,250 MG in 0.9 % Sodium Chloride 250 ML 166.67 MG IV ×3 (03:07→18:07)
[2023-12-31 03:33] VITALS: BP 159/89; PULSE 80; RESP 18; TEMP 36.4; O2SAT 95
[2023-12-31 06:31] LABS: Creatinine Clr Calc Pharmacy 149.2; Estimated Glomerular Filt Rate > 60
[2023-12-31] MEDS: lisinopriL 5 MG TABLET PO ×2 (07:42→08:45)
[2023-12-31] MEDS: 0.9 % Sodium Chloride Flush 3 ML SYRINGE IVFLUSH ×2 (07:42→14:56)
[2023-12-31] MEDS: amLODIPine Besylate 10 MG TABLET PO (07:42)
[2023-12-31] MEDS: methADONE HCl 20 MG/2 ML ORAL.CONC 125 MG PO (07:43)
[2023-12-31 07:44] VITALS: BP 158/86; PULSE 73; RESP 18; TEMP 36.4
[2023-12-31 09:34] LABS: Vancomycin Trough 18.2 mcg/mL (10.0-20.0)
--- NOTE | 2023-12-31 09:46 | HE.PHANOTE ---
Vancomycin dose Level decrease from 19.4 to 18.2, continue current regimen. Next level 12/31 @ 0900. Amanda Tate, GiuseppeD
--- NOTE | 2023-12-31 10:04 | PM.PNORT ---
Subjective Subjective Date of Service: 12/31/23 Principal diagnosis: right leg cellulitis Interval history: The patient is seen resting in bed reports right ankle pain improved over the last few days, states it doesn't hurt to tough it anymore . Physical Exam Vital Signs: Vital Signs: Last Vital Signs Temp 97.6 F 12/31/23 07:44 Pulse 73 12/31/23 07:44 Resp 18 12/31/23 07:44 BP 158/86 H 12/31/23 07:44 Pulse Ox 95 12/31/23 03:33 O2 Del Method Room Air 12/31/23 03:33 BMI result Body Mass Index 37.0 Extrem: Other: Right ankle - continue diffuse swelling distal leg, minimal discomfort with AROM, mild tenderness to palpation posterior to medial malleolus, no palpable mass Procedures Date of Service Date of Service: 12/31/23 Progress Note: A&P Assessment and plan (1) Cellulitis of right leg: Status: Acute Plan Mr. Mcpherson continues to slowly improve clinically on IV antibiotics. He wishes to avoid surgery if possible because of his improvement. Agree with MRI to evaluate for possible osteomyelitis. Will follow. Quality Stroke Does the patient have a stroke diagnosis?: No VTE Prior VTE?: No VTE Risk Level:: Medical - moderate - high VTE Device Contraindication: Treatment Not Indicated VTE Drug Contraindication: N/A - Med Ordered
--- NOTE | 2023-12-31 10:38 | HO.PM.IMPN ---
Subjective Subjective Date of Service: 12/31/23 Interval History: no fever R leg pain/redness improved Review of Systems Review of Systems: Yes all other systems are reviewed and are negative Physical Exam Vital Signs: Vital Signs: Last Vital Signs Temp 97.6 F 12/31/23 07:44 Pulse 73 12/31/23 07:44 Resp 18 12/31/23 07:44 BP 158/86 H 12/31/23 07:44 Pulse Ox 95 12/31/23 03:33 O2 Del Method Room Air 12/31/23 03:33 BMI result Body Mass Index 37.0 Gen: in no acute distress HEENT: sclera anicteric, moist mucus membranes Neck: supple Lungs: clear to auscultation bilaterally Heart: regular rate and rhythm, no murmurs Abd: soft, non-tender, non-distended Ext: progressive improvement of erythema, induration, and tenderness of R lower leg; no fluctuance Skin: warm/well-perfused Neuro: alert and oriented x3, no focal findings Psych: appropriate affect Objective Data Active Medications Acetaminophen (Acetaminophen 325 Mg Tablet) 650 mg PO Q6H PRN PRN Reason: Pain, Mild (Pain Scale 1-3) Last Admin: 12/30/23 23:51 Dose: 650 mg Documented By: CHELSEY Amlodipine Besylate (Amlodipine Besylate 10 Mg Tablet) 10 mg PO DAILY [facility]; Protocol Last Admin: 12/31/23 07:42 Dose: 10 mg Documented By: AMY Enoxaparin Sodium (Enoxaparin Sodium 40 Mg/0.4 Ml Syringe) 40 mg SUBCUT Q24H [facility] Last Admin: 12/30/23 19:57 Dose: 40 mg Documented By: CHELSEY Vancomycin HCl 1,250 mg/ (Sodium Chloride) 250 mls @ 166.667 mls/hr IV Q8H [facility] Last Infusion: 12/31/23 04:40 Dose: Infused Documented By: CHELSEY Lisinopril (Lisinopril 10 Mg Tablet) 10 mg PO DAILY [facility]; Protocol Last Admin: 12/31/23 08:45 Dose: Not Given Documented By: AMY Non-Admin Reason: start tomorrow Methadone HCl (Methadone Hcl 20 Mg/2 Ml Oral.Conc) 125 mg PO DAILY [facility] Last Admin: 12/31/23 07:43 Dose: 125 mg Documented By: AMY Morphine Sulfate (Morphine Sulfate 4 Mg/Ml Cartridge) 4 mg IVPUSH Q4H PRN; Protocol PRN Reason: Pain, Severe (Pain Scale 7-10) Last Admin: 12/29/23 01:52 Dose: 4 mg Documented By: EILEEN Ondansetron HCl (Ondansetron Hcl 4 Mg/2 Ml Vial) 4 mg IVPUSH Q8H PRN PRN Reason: Nausea and Vomiting Oxycodone HCl (Oxycodone Hcl Immed Release 5 Mg Tablet) 5 mg PO Q6H PRN PRN Reason: Pain, Moderate(Pain Scale 4-6) Pharmacy Consult (Consult Rx Vancomycin Dosing) 1 each MISCELLANE DAILY PRN PRN Reason: Consult order Senna (Sennosides 8.6 Mg Tablet) 17.2 mg PO BEDTIME PRN PRN Reason: Constipation Last Admin: 12/30/23 23:50 Dose: 17.2 mg Documented By: CHELSEY Comments: pt feels constipated , haven't had a bowel movement in 4 days Sodium Chloride (0.9 % Sodium Chloride Flush 3 Ml Syringe) 3 ml IVFLUSH QSHIFT [facility] Last Admin: 12/31/23 07:42 Dose: 3 ml Documented By: AMY Labs 12/28/23 05:46 12/31/23 05:56 Labs: Laboratory Results - last 24 hr 12/31/23 12/31/23 05:56 09:04 Hold Purple Top SEE NOTE Estim Creat Clear Calc 149.2 Estimated GFR > 60 Vancomycin Trough 18.[address] 12/27/23 22:34 IMPRESSION: 1. Circumferential subcutaneous edema and stranding at the ankle, with extension along the dorsal aspect of the foot. Mild associated skin thickening. Findings are consistent with cellulitis. 2. Complex, peripherally-enhancing fluid in the region of the posterior tibial tendon sheath, extending from the distal tendon insertion proximally beyond the imaged [id number], concerning for infectious tenosynovitis versus abscess formation. This measures up to 1.5 x 1.0 cm in greatest axial dimension. 3. Small tibiotalar joint effusion. Ankle CT 12/30/23 08:47 IMPRESSION: Redemonstration of posterior tibial tenosynovitis, suspicious for inflammatory/septic tenosynovitis in the appropriate clinical setting, not significantly changed, better demonstrated on the previous contrast-enhanced study. Cortical thinning/erosion of the subjacent tibia may be reactive, potentially a sign of early osteomyelitis in the setting of infection. Consider further evaluation with MRI. Moderate ankle joint effusion. Microbiology Microbiology Results: Microbiology 12/30/23 05:57 Blood Culture - Preliminary Blood - Venous No growth after 24 hours. 12/30/23 05:57 Blood Culture - Preliminary Blood - Venous No growth after 24 hours. 12/27/23 21:22 Blood Culture - Final Blood - Venous Bacillus species 12/27/23 21:22 Blood Culture - Final Blood - Venous Staphylococcus aureus Bacillus species Assessment and Plan (1) Cellulitis of right leg: Status: Acute Plan d5 48yo M with IDU, PAD, HTN, OUD on methadone, hx MSSA bacteremia admitted with extensive RLE cellulitis with possible abscess vs tenosynovisits of posterior tibial tendon cellulitis with abscess vs posterior tibialis tenosynovitis and possibly underlying osteomyelitis of the tibia MSSA + Bacillus bacteremia - Ortho consulted, MRI to assess for osteomyelitis and further delineate fluid collection. Pt wishes to avoid surgery. - pip-lukas 12/26-12/28, vanco 12/26-, repeat BCx from 12/29 pending, ID consulted- will likely need 6 wk IV ABX from culture clearance date; will place PICC tomorrow as long as blood cultures clear - speciation/susceptibilities on Bacillus requested as per ID - TTE 12/29/23: 1. Technically limited study 2. Cardiac valvular vegetations can not be entirely ruled out on this study 3. Low normal LVEF of 50-55% with impaired relaxation filling pattern 4. Trace aortic regurgitation 5. Normal measured RV systolic pressure 6. Mildly dilated ascending aorta measured on one view at 3.7 cm HTN urgency - improved, on amlodipine; increase lisinopril dose; check BMP HCV Ab+ - viral load pending OUD - Addiction Med consulted; methadone per home dosing VTE ppx - LMWH dispo - STR for long-term IV ABX In my clinical judgment, the patient requires continued inpatient hospitalization for the following reasons: IV ABX, advanced imaging, specialty consultation Total time managing care of this patient today: 35 minutes. Quality Stroke Does the patient have a stroke diagnosis?: No VTE Prior VTE?: No VTE Risk Level:: Medical - moderate - high VTE Device Contraindication: Treatment Not Indicated VTE Drug Contraindication: N/A - Med Ordered
[2023-12-31 15:16] VITALS: BP 132/92; PULSE 77; RESP 16; TEMP 36.6; O2SAT 96
[2023-12-31 19:40] VITALS: BP 143/79; PULSE 78; RESP 16; TEMP 36.7; O2SAT 96
[2023-12-31] MEDS: Enoxaparin Sodium 40 MG/0.4 ML SYRINGE SUBCUT (20:52)
[2024-01-01] MEDS: Acetaminophen 325 MG TABLET 650 MG PO ×2 (01:09→23:09)
[2024-01-01] MEDS: 0.9 % Sodium Chloride Flush 3 ML SYRINGE IVFLUSH ×2 (01:09→07:48)
[2024-01-01] MEDS: Melatonin 3 MG TABLET 6 MG PO ×2 (01:09→23:10)
[2024-01-01] MEDS: vancomycin HCL 1,250 MG in 0.9 % Sodium Chloride 250 ML 166.67 MG IV ×3 (02:51→20:12)
--- NOTE | 2024-01-01 03:13 | PC.NURSE ---
Patient now refusing bed alarm. Safety measures discussed. Ambulates independently with cane/walker. Reports he will ring for assistance if needed. Camera in place.
[2024-01-01 04:00] VITALS: BP 138/84; PULSE 74; RESP 18; TEMP 36.2; O2SAT 97
[2024-01-01 06:52] LABS: Anion Gap 16 (12-20); Blood Urea Nitrogen 15 mg/dL (9-16); Calcium 9.1 mg/dL (8.4-10.2); Carbon Dioxide 23 mmol/L (22-29); Chloride 101 mmol/L (96-108); Creatinine Clr Calc Pharmacy 149.2; Estimated Glomerular Filt Rate > 60; Glucose Random 96 mg/dL (60-115); Potassium 4.6 mmol/L (3.3-5.1); Sodium 135 mmol/L (135-145)
[2024-01-01 07:31] VITALS: BP 170/78; PULSE 74; RESP 18; TEMP 36.6; O2SAT 96
[2024-01-01] MEDS: lisinopriL 10 MG TABLET PO (07:47)
[2024-01-01] MEDS: amLODIPine Besylate 10 MG TABLET PO (07:48)
[2024-01-01] MEDS: methADONE HCl 20 MG/2 ML ORAL.CONC 125 MG PO (09:49)
--- NOTE | 2024-01-01 10:09 | HE.PHANOTE ---
PETRONA BRIGGS Patients level came back this morning at 18. Will continue with current dose of 1250 mg Q8h. Predicted AUC 493. NExt draw will be 01/02 @0900 as renal function has been somewhat stable
--- NOTE | 2024-01-01 11:20 | MHC.CM.PN ---
Addendum entered by Deanna Egan RN 01/01/24 12:25: PER DONYA AT [facility] ALL DOCUMENTATION FROM [facility] HAS BEEN RECEIVED. WILL NEED DC SUMMARY AND LAST DOSE LETTER FAXED TO [phone] ATTOliver NAQVI. Addendum entered by Deanna Egan RN 01/01/24 11:32: PER AASHISH AT [facility], ALL REQUIRED DOCUMENTATION FOR GUEST DOSING WILL BE FAXED TODAY FOR A DOSING START DATE OF 01/02. Original Note: EMR REVIEWED. PER MD ROUNDS PATIENT IS NOT MEDICALLY CLEARED FOR DC. AWAITING MRI AND PICC. WILL NEED SNF PLACEMENT FOR LT IV ABX. BED OFFER FROM [facility], PENDING GUEST DOSING. RELEASE FORM FAXED TO [facility]. CM REVIEWED WITH PATIENT, WHO IS AGREEABLE TO PLAN.
[2024-01-01 11:25] VITALS: RESP 18
[2024-01-01] MEDS: Morphine Sulfate 4 MG/ML CARTRIDGE IVPUSH (11:25)
--- NOTE | 2024-01-01 11:49 | HO.WOUND ---
Wound Consult: Initial 48yr old?M admitted to [facility] on 12/27/23 - See progress notes and H&P for detailed history.? Wound consult placed for right Lower Leg.? Patient agreeable to assessment and photo documentation.? Arrival to bedside right lower leg assessed - no open tissue noted - patient denies wound. The lower leg has +PP is warm to touch patient denies numbness and tingling and reports full sensation. Leg is warm and firm edema noted - erythema appears to be resolving from chart review photo review. No topical interventions needed at this time. Direct care team will place a new consult should a wound develop.
[2024-01-01 13:16] VITALS: BP 138/86; PULSE 89; RESP 20; TEMP 36.7; O2SAT 93
[2024-01-01 13:49] LABS: HCV Log PCR 6.72 Log IU/mL (NOT DETECTED); HepC Viral Load 5250000 IU/mL (NOT DETECTED)
--- NOTE | 2024-01-01 14:25 | HO.PM.IMPN ---
Subjective Subjective Date of Service: 01/01/24 Interval History: Continues to improve per patient. PICC line placed without incident Review of Systems Denies chest pain Denies shortness of Denies nausea vomiting diarrhea Denies fever chills Physical Exam Vital Signs: Vital Signs: Last Vital Signs Temp 98.1 F 01/01/24 13:16 Pulse 89 01/01/24 13:16 Resp 20 01/01/24 13:16 BP 138/86 01/01/24 13:16 Pulse Ox 93 01/01/24 13:16 O2 Del Method Room Air 01/01/24 13:16 BMI result Body Mass Index 37.0 Const: Other: Awake alert acute distress Resp: Other: Clear to auscultation bilaterally no rales rhonchi or wheezes Cardio: Other: No S4; positive S1-S2; no S3 murmurs rubs or gallops Extrem: Other: Edema improved lower extremity Objective Data Active Medications Acetaminophen (Acetaminophen 325 Mg Tablet) 650 mg PO Q6H PRN PRN Reason: Pain, Mild (Pain Scale 1-3) Last Admin: 01/01/24 01:09 Dose: 650 mg Documented By: CASEY Amlodipine Besylate (Amlodipine Besylate 10 Mg Tablet) 10 mg PO DAILY [facility]; Protocol Last Admin: 01/01/24 07:48 Dose: 10 mg Documented By: RADHA Enoxaparin Sodium (Enoxaparin Sodium 40 Mg/0.4 Ml Syringe) 40 mg SUBCUT Q24H [facility] Last Admin: 12/31/23 20:52 Dose: 40 mg Documented By: CASEY Vancomycin HCl 1,250 mg/ (Sodium Chloride) 250 mls @ 166.667 mls/hr IV Q8H [facility] Last Admin: 01/01/24 13:51 Dose: 166.67 mls/hr Documented By: RADHA Lisinopril (Lisinopril 10 Mg Tablet) 10 mg PO DAILY [facility]; Protocol Last Admin: 01/01/24 07:47 Dose: 10 mg Documented By: RADHA Melatonin (Melatonin 3 Mg Tablet) 6 mg PO BEDTIME PRN PRN Reason: Insomnia Last Admin: 01/01/24 01:09 Dose: 6 mg Documented By: CASEY Methadone HCl (Methadone Hcl 20 Mg/2 Ml Oral.Conc) 125 mg PO DAILY [facility] Last Admin: 01/01/24 09:49 Dose: 125 mg Documented By: RADHA Morphine Sulfate (Morphine Sulfate 4 Mg/Ml Cartridge) 4 mg IVPUSH Q4H PRN; Protocol PRN Reason: Pain, Severe (Pain Scale 7-10) Last Admin: 01/01/24 11:25 Dose: 4 mg Documented By: RADHA Ondansetron HCl (Ondansetron Hcl 4 Mg/2 Ml Vial) 4 mg IVPUSH Q8H PRN PRN Reason: Nausea and Vomiting Oxycodone HCl (Oxycodone Hcl Immed Release 5 Mg Tablet) 5 mg PO Q6H PRN PRN Reason: Pain, Moderate(Pain Scale 4-6) Pharmacy Consult (Consult Rx Vancomycin Dosing) 1 each MISCELLANE DAILY PRN PRN Reason: Consult order Senna (Sennosides 8.6 Mg Tablet) 17.2 mg PO BEDTIME PRN PRN Reason: Constipation Last Admin: 12/30/23 23:50 Dose: 17.2 mg Documented By: CHELSEY Comments: pt feels constipated , haven't had a bowel movement in 4 days Sodium Chloride (0.9 % Sodium Chloride Flush 3 Ml Syringe) 3 ml IVFLUSH QSHIFT [facility] Last Admin: 01/01/24 07:48 Dose: 3 ml Documented By: RADHA Sodium Chloride (0.9 % Sodium Chloride Flush 10 Ml Syringe) 5 ml IVFLUSH TID [facility] Labs 12/28/23 05:46 01/01/24 05:56 Labs: Laboratory Results - last 24 hr 12/29/23 01/01/24 01/01/24 05:56 05:56 09:27 Hold Purple Top SEE NOTE Anion Gap 16 Estim Creat Clear Calc 149.2 Estimated GFR > 60 Random Glucose 96 Calcium 9.1 Vancomycin Trough 18.0 Hep C Viral Load [id number] H Hep C Viral Load Log 6.72 H Microbiology Microbiology Results: Microbiology 12/30/23 05:57 Blood Culture - Preliminary Blood - Venous No growth after 48 hours. 12/30/23 05:57 Blood Culture - Preliminary Blood - Venous No growth after 48 hours. 12/27/23 21:22 Blood Culture - Preliminary Blood - Venous Staphylococcus aureus Bacillus species 12/27/23 21:22 Blood Culture - Preliminary Blood - Venous Bacillus species Assessment and Plan (1) Cellulitis of right leg: Status: Acute (2) Bacteremia: Status: Acute (3) Opioid use disorder: Status: Acute Plan 48yo M with IDU, PAD, HTN, OUD on methadone, hx MSSA bacteremia admitted with extensive RLE cellulitis with possible abscess vs tenosynovisits of posterior tibial tendon. Has been maintained on vancomycin 1.Cellulitis with abscess vs posterior tibialis tenosynovitis?steomyelitis of the tibia 2.MSSA + Bacillus bacteremia -pip-lukas 12/26-12/28, vanco 12/26-, repeat BCx from 12/29 negative; ID will need 6 wk IV ABX from culture clearance date(12/30/23) - speciation/susceptibilities on Bacillus requested as per ID - TTE 12/29/23: 1. Technically limited study 2. Cardiac valvular vegetations can not be entirely ruled out on this study 3. Low normal LVEF of 50-55% with impaired relaxation filling pattern 4. Trace aortic regurgitation 5. Normal measured RV systolic pressure 6. Mildly dilated ascending aorta measured on one view at 3.7 cm 3.HTN urgency - acceptable control on current therapies -adjust as indicated 4.HCV Ab+ - viral load pending -outpatient follow-up 5.OUD -methadone as ordered Full code Lovenox In my clinical judgment, the patient requires continued inpatient hospitalization for the following reasons: IV ABX, advanced imaging, specialty consultation Quality Stroke Does the patient have a stroke diagnosis?: No VTE Prior VTE?: No VTE Risk Level:: Medical - moderate - high VTE Device Contraindication: Treatment Not Indicated VTE Drug Contraindication: N/A - Med Ordered
[2024-01-01 15:11] VITALS: BP 143/65; PULSE 79; RESP 18; TEMP 37.1; O2SAT 94
--- NOTE | 2024-01-01 16:02 | P.PICC_ITS ---
PICC Line Insertion NPICC INSERTION Diagnosis: STAPH BACTEREMIA Indication: FDC ANTIBX Pertinent Labs: REVIEWED Technique: Following informed consent including risks, benefits and alternatives and using sterile technique including cap and mask, sterile gown, glove and drape, the RIGHT arm was prepped and draped in the usual sterile fashion of full barrier technique with CHG. Following completion of [place] Protocol the skin and soft tissues were anesthetized with 1% Lidocaine plain. Using ultrasound guidance, RIGHT BRACHIAL vein access was obtained. Over an 0.018 wire through peel-away sheath, a 4FR SINGLE LUMEN PASV POWERPICC SOLO PICC line was positioned. Catheter length is 40CM internal length, OCM external length, for a total trimmed length of 40CM. The procedure was performed in RM 272. Tip verification was performed by Jimmy Lara with Eloisa 3CG. Tip located in SVC. Ultrasound was used to document vein patency and for needle entry. A formal ultrasound picture and cardiac rhythm strip was recorded. [employer] Assistant has released the line for use and it is currently dressed with a StatLock, Tegaderm, and CHG disc. Verification has been performed for blood return and line patency. Arm Circumference: 33.5 CM Equipment: [employer] POWERPICC SOLO CATHETER Catheter Type: 4FR SINGLE LUMEN PASV POWERPICC SOLO PICC Lot #: [id number]
[2024-01-01] MEDS: 0.9 % Sodium Chloride Flush 10 ML SYRINGE 5 ML IVFLUSH ×2 (16:04→20:13)
[2024-01-01 20:00] VITALS: BP 140/88; PULSE 86; RESP 18; TEMP 36.4; O2SAT 97
[2024-01-01] MEDS: Enoxaparin Sodium 40 MG/0.4 ML SYRINGE SUBCUT (20:12)
[2024-01-02 03:19] VITALS: BP 154/80; PULSE 83; RESP 18; TEMP 36.4; O2SAT 95
[2024-01-02] MEDS: vancomycin HCL 1,250 MG in 0.9 % Sodium Chloride 250 ML 166.67 MG IV (04:31)
[2024-01-02 06:23] LABS: Estimated Glomerular Filt Rate > 60
[2024-01-02 07:48] VITALS: BP 170/99; PULSE 90; RESP 18; TEMP 36.2; O2SAT 95
[2024-01-02] MEDS: 0.9 % Sodium Chloride Flush 10 ML SYRINGE 5 ML IVFLUSH ×3 (08:32→20:19)
[2024-01-02] MEDS: amLODIPine Besylate 10 MG TABLET PO (08:34)
[2024-01-02] MEDS: lisinopriL 10 MG TABLET PO (08:34)
[2024-01-02] MEDS: methADONE HCl 20 MG/2 ML ORAL.CONC 125 MG PO (08:34)
[2024-01-02] MEDS: Acetaminophen 325 MG TABLET 650 MG PO ×3 (10:10→22:55)
--- NOTE | 2024-01-02 13:30 | MHC.CM.PN ---
EMR REVIEWED, PT W/RASH LIKELY FROM VANCO, IV ABX TO BE CHANGED TO IV DAPTO, PER [facility] THEY WILL GO FOR CARVE OUT D/T COST OF DAPTO. CM ATTEMPTED TO MEET W/PT TO DISCUSS DISPO HOWEVER PT OFF UNIT GETTING MRI, CM WILL REVISIT WHEN PT RETURNS. CM WILL STILL NEED TO FAX DC SUMMARY/LAST DOSE LETTER TO [facility] ATT DONYA [phone], CM AWAITING DC SUMMARY HOWEVER PT WILL NOT BE ABLE TO DC TO SNF UNTIL CARVE OUT APPROVED.
[2024-01-02 14:59] VITALS: BP 130/79; PULSE 82; RESP 18; TEMP 36.4; O2SAT 94
--- NOTE | 2024-01-02 15:14 | P.PNIM_ITS ---
Subjective Subjective Date of Service: 01/02/24 Interval History: Noted to have rash likely secondary to vancomycin. Discussed with ID, daptomycin started. No acute issues Review of Systems Denies chest pain Denies shortness of Denies nausea vomiting diarrhea Denies fever chills Physical Exam 2 Vital Signs: Vital Signs: Last Vital Signs Temp 97.6 F 01/02/24 14:59 Pulse 82 01/02/24 14:59 Resp 18 01/02/24 14:59 BP 130/79 01/02/24 14:59 Pulse Ox 94 01/02/24 14:59 O2 Del Method Room Air 01/02/24 14:59 BMI result Body Mass Index 37.0 Const: Other: Awake alert acute distress Resp: Other: Clear to auscultation bilaterally no rales rhonchi or wheezes Cardio: Other: No S4; positive S1-S2; no S3 murmurs rubs or gallops Extrem: Other: Edema improved lower extremity Objective Data Active Medications Acetaminophen (Acetaminophen 325 Mg Tablet) 650 mg PO Q6H PRN PRN Reason: Pain, Mild (Pain Scale 1-3) Last Admin: 01/02/24 10:10 Dose: 650 mg Documented By: RADHA Amlodipine Besylate (Amlodipine Besylate 10 Mg Tablet) 10 mg PO DAILY [facility]; Protocol Last Admin: 01/02/24 08:34 Dose: 10 mg Documented By: RADHA Enoxaparin Sodium (Enoxaparin Sodium 40 Mg/0.4 Ml Syringe) 40 mg SUBCUT Q24H [facility] Last Admin: 01/01/24 20:12 Dose: 40 mg Documented By: PERRI Daptomycin 930 mg/ Sodium (Chloride) 68.6 mls @ 115.079 mls/hr IV Q24H [facility] Last Infusion: 01/02/24 14:26 Dose: Infused Documented By: RADHA Lisinopril (Lisinopril 10 Mg Tablet) 10 mg PO DAILY [facility]; Protocol Last Admin: 01/02/24 08:34 Dose: 10 mg Documented By: RADHA Melatonin (Melatonin 3 Mg Tablet) 6 mg PO BEDTIME PRN PRN Reason: Insomnia Last Admin: 01/01/24 23:10 Dose: 6 mg Documented By: PERRI Methadone HCl (Methadone Hcl 20 Mg/2 Ml Oral.Conc) 125 mg PO DAILY [facility] Last Admin: 01/02/24 08:34 Dose: 125 mg Documented By: RADHA Ondansetron HCl (Ondansetron Hcl 4 Mg/2 Ml Vial) 4 mg IVPUSH Q8H PRN PRN Reason: Nausea and Vomiting Senna (Sennosides 8.6 Mg Tablet) 17.2 mg PO BEDTIME PRN PRN Reason: Constipation Last Admin: 12/30/23 23:50 Dose: 17.2 mg Documented By: CHELSEY Comments: pt feels constipated , haven't had a bowel movement in 4 days Sodium Chloride (0.9 % Sodium Chloride Flush 3 Ml Syringe) 3 ml IVFLUSH QSHIFT [facility] Last Admin: 01/02/24 15:13 Dose: Not Given Documented By: RADHA Non-Admin Reason: Previously Administered Sodium Chloride (0.9 % Sodium Chloride Flush 10 Ml Syringe) 5 ml IVFLUSH TID [facility] Last Admin: 01/02/24 15:12 Dose: 5 ml Documented By: RADHA Labs 12/28/23 05:46 01/02/24 05:44 Labs: Laboratory Results - last 24 hr 01/02/24 05:44 Hold Purple Top SEE NOTE Estim Creat Clear Calc 153.0 Estimated GFR > 60 Assessment and Plan (1) Cellulitis of right leg: Status: Acute Plan 48yo M with IDU, PAD, HTN, OUD on methadone, hx MSSA bacteremia admitted with extensive RLE cellulitis with possible abscess vs tenosynovisits of posterior tibial tendon. Has been maintained on vancomycin 1.Cellulitis with abscess vs posterior tibialis tenosynovitis?steomyelitis of the tibia 2.MSSA + Bacillus bacteremia -pip-lukas 12/26-12/28, vanco 12/26-, noted to have rash likely from vanco. DC in favor of daptomycin. Repeat BCx from 12/29 negative; ID will need 6 wk IV ABX from culture clearance date(12/30/23) - speciation/susceptibilities on Bacillus requested as per ID - TTE 12/29/23: 1. Technically limited study 2. Cardiac valvular vegetations can not be entirely ruled out on this study 3. Low normal LVEF of 50-55% with impaired relaxation filling pattern 4. Trace aortic regurgitation 5. Normal measured RV systolic pressure 6. Mildly dilated ascending aorta measured on one view at 3.7 cm 3.HTN urgency - acceptable control on current therapies -adjust as indicated 4.HCV Ab+ - viral load pending -outpatient follow-up 5.OUD -methadone as ordered Full code Lovenox In my clinical judgment, the patient requires continued inpatient hospitalization for the following reasons: IV ABX, advanced imaging, specialty consultation Quality Stroke Does the patient have a stroke diagnosis?: No VTE Prior VTE?: No VTE Risk Level:: Medical - moderate - high VTE Device Contraindication: Treatment Not Indicated VTE Drug Contraindication: N/A - Med Ordered
[2024-01-02] MEDS: gadobutroL 10 ML VIAL IVPUSH (18:03)
[2024-01-02 19:37] VITALS: BP 147/78; PULSE 85; RESP 18; TEMP 36.2; O2SAT 95
[2024-01-02] MEDS: Enoxaparin Sodium 40 MG/0.4 ML SYRINGE SUBCUT (20:18)
[2024-01-02] MEDS: Melatonin 3 MG TABLET 6 MG PO (22:55)
[2024-01-03 03:46] VITALS: BP 138/88; PULSE 77; RESP 19; TEMP 36.3; O2SAT 96
[2024-01-03] MEDS: Acetaminophen 325 MG TABLET 650 MG PO ×3 (05:41→23:31)
[2024-01-03 08:00] VITALS: BP 163/84; PULSE 80; RESP 18; TEMP 36.6; O2SAT 96
[2024-01-03] MEDS: amLODIPine Besylate 10 MG TABLET PO (09:08)
[2024-01-03] MEDS: lisinopriL 10 MG TABLET PO (09:08)
[2024-01-03] MEDS: methADONE HCl 20 MG/2 ML ORAL.CONC 125 MG PO (09:08)
[2024-01-03] MEDS: 0.9 % Sodium Chloride Flush 10 ML SYRINGE 5 ML IVFLUSH ×3 (09:10→20:19)
--- NOTE | 2024-01-03 09:16 | MHC.CM.PN ---
EMR REVIEWED, PER HOSPITALIST PT'S MRI INDICATIVE OF ABCESS, PT WILL LIKELY NEED SURGICAL INTERVENTION, [facility] VIEW UPDATED VIA CAREPOPRT, CM WILL CONT TO FOLLOW DC NEEDS.
--- NOTE | 2024-01-03 14:17 | PM.DS ---
DS: Providers Provider Date of Service: 02/04/24 Date of admission: 12/27/23 20:33 Date of discharge: 01/04/24 Primary care physician: None Physician Consults: 12/27/23 21:17 Addiction Medicine Routine Consulting Provider: Addiction Covering Reason for consultation: polysubstance use disorder 12/28/23 07:49 Consult to Orthopedics Routine Consulting Provider: [facility] Orthopedic Surgeons Reason for consultation: abscess vs tenosynovitis of post tib tendon sheath 12/29/23 08:22 Consult to Infectious Diseases Routine Consulting Provider: [facility] Infectious Disease Reason for consultation: bacteremia 01/02/24 10:35 Consult to Infectious Diseases Routine Consulting Provider: DIONICIO GUO Reason for consultation: bacteremia Has provider been notified: Yes DS: Diagnosis Discharge Diagnosis (1) Cellulitis of right leg: Status: Resolved DS: Summary Hospital Course Hospital Course: 48-year-old male with history of peripheral artery disease, hypertension, ongoing IV drug abuse (heroin-last use just prior to arrival), opiate dependence on methadone with history of MSSA bacteremia presented to the ED earlier today for evaluation of redness, pain, swelling in the right lower extremity ongoing for 4 days. He admits to injecting heroin into the bilateral lower extremities on a regular basis, more often in the left than right. However about 4 days ago noted increasing redness and swelling of the right lower leg without any active drainage. Reports chills but no documented fevers. He also reports marijuana use but denies any other illicit drug use. He does smoke 2-3 cigarettes on a daily basis but denies any alcohol use. He has been following with [facility] for his methadone and desires rehab. On arrival, patient quite hypertensive to 236/136 with blood pressure 192/99 on admission. Vitals otherwise stable. He does have a history of hypertension but has not been seen by PCP or taken medications in quite some time. Denies any headaches, visual changes, chest pain. There is no leukocytosis. There is a stable normocytic anemia with H/H 12.7/37.1%. Renal function normal, electrolyte levels normal. AST 63, ALT 88, alkaline phosphatase 119. Venous duplex negative for DVT in the right lower extremity. X-ray of the right tib/fib, foot, ankle negative for osseous abnormality but shows soft tissue swelling and right ankle effusion. Patient will be admitted for further management of extensive cellulitis of the right lower extremity in IV drug abuser. Hospital course Admitted to general medical floor and started on IV vancomycin. Seen in consultation by ID and recommended total of 6 weeks of IV antibiotics. PICC line was placed after negative blood cultures; noted to have a granular rash consistent with allergic reaction to vancomycin. Vancomycin was DC in favor of daptomycin. Was followed by Orthopedics; underwent MRI of his right lower which demonstrated posterior tibial and flexor digitorum tenosynovitis with significant surrounding edema and fascial edema. Orthopedics discussed case with patient and it was deemed that surgery was not indicated at this time and conservative measures including completing antibiotic therapy were recommended. At this point in time he is medically acceptable for discharge to complete his course of daptomycin. 6 weeks from first negative blood cultures on 12/29 - end date February 09. HCV will need outpatient follow up. Time Attestation Discharge Coordination Time (in mins): 35 Quality: Safe Use of Opioids Does Pt have an Active Cancer Diagnosis on the Problem List?: No Quality: Stroke Does the patient have a stroke diagnosis?: No Physical Exam Vital Signs: Vital Signs: Last Vital Signs Temp 97.9 F 01/03/24 08:00 Pulse 80 01/03/24 08:00 Resp 18 01/03/24 08:00 BP 163/84 H 01/03/24 08:00 Pulse Ox 96 01/03/24 08:00 O2 Del Method Room Air 01/03/24 08:00 BMI result Body Mass Index 37.0 Const: Other: Awake alert acute distress Resp: Other: Clear to auscultation bilaterally no rales rhonchi or wheezes Cardio: Other: No S4; positive S1-S2; no S3 murmurs rubs or gallops Extrem: Other: Edema improved lower extremity DS: Data Data Completed and Pending Completed studies during hospitalization [Text1]: Procedures Extirpation of Matter from Left Posterior Tibial Artery, Open Approach (11/25/21) Insertion of Infusion Device into Left Basilic Vein, Percutaneous Approach (11/25/21) Repair Left Posterior Tibial Artery, Open Approach (11/25/21) Labs on day of discharge: Preliminary micro results at discharge 12/30/23 05:57 Blood Culture - Preliminary Blood - Venous No growth after 48 hours. 12/30/23 05:57 Blood Culture - Preliminary Blood - Venous No growth after 48 hours. 12/27/23 21:22 Blood Culture - Preliminary Blood - Venous Staphylococcus aureus Bacillus species 12/27/23 21:22 Blood Culture - Preliminary Blood - Venous Bacillus species Discharge Plan Discharge Anticipated Discharge Date/Time: 01/04/24 16:09 Patient Disposition: Xfer Acute Care Hospital Discharge Diagnosis: Cellulitis right lower extremity bacteremia - MSSA, bacillus species Referrals: [facility] [Outside] - 1 Day (Complete IV antibiotics) Dionicio Guo MD [Physician] - 1 Month Robin Ireland PA-C [Physician [employer] Host/Hostess] - 2 Weeks Physician,None [Primary Care Provider] - 1 Week Discharge Medications: New amlodipine 10 mg Tablet 10 mg PO DAILY Qty: 30 0RF Protocol: Hold for SBP< HOLD for SBP < : 90 lisinopril 10 mg Tablet 10 mg PO DAILY Qty: 30 0RF Protocol: Hold for SBP< HOLD for SBP < : 90 daptomycin 500 mg Recon Soln 930 mg IV Q24H 36 Days Qty: 36 0RF Continued methadone [Methadose] 10 mg/mL Concentrate 125 mg PO DAILY No Action doxycycline hyclate 100 mg capsule 100 mg PO BID 35 Days Qty: 70 0RF cephalexin 500 mg tablet 500 mg PO Q6H 14 Days Qty: 56 0RF Discharge Orders: Discharge Order (Routine); Ordered 01/04/24 Ordered By: Mary Mcfarlane Diet: Advance to usual diet Activity on Discharge: As tolerated Stand Alone Forms: Patient Portal Discharge page Care Plan Goals: Continue all medicines including methadone as ordered Health Concerns: RLE cellulitis bacteremia due to MSSA/bacillus species HCV Plan of Treatment: Daptomycin daily x 6 weeks - end date February 09. monitor cbc, bmp weekly while receiving abx starting on Sunday 01/07 will need outpatient follow up with ID follow up with orthopedics in two weeks will need oupatient follow up with GI for management of hepatitic C Assessment: See discharge summary Discharge Date/Time: 01/04/24 16:23
--- NOTE | 2024-01-03 14:21 | HO.PM.IMPN ---
Subjective Subjective Date of Service: 01/03/24 Interval History: Notes marked improvement since admission. No fever chills states ambulating without pain Review of Systems Denies chest pain Denies shortness of Denies nausea vomiting diarrhea Denies fever chills Physical Exam Vital Signs: Vital Signs: Last Vital Signs Temp 97.9 F 01/03/24 08:00 Pulse 80 01/03/24 08:00 Resp 18 01/03/24 08:00 BP 163/84 H 01/03/24 08:00 Pulse Ox 96 01/03/24 08:00 O2 Del Method Room Air 01/03/24 08:00 BMI result Body Mass Index 37.0 Const: Other: Awake alert acute distress Resp: Other: Clear to auscultation bilaterally no rales rhonchi or wheezes Cardio: Other: No S4; positive S1-S2; no S3 murmurs rubs or gallops Extrem: Other: Edema improved lower extremity Objective Data Active Medications Acetaminophen (Acetaminophen 325 Mg Tablet) 650 mg PO Q6H PRN PRN Reason: Pain, Mild (Pain Scale 1-3) Last Admin: 01/03/24 05:41 Dose: 650 mg Documented By: EMMA Amlodipine Besylate (Amlodipine Besylate 10 Mg Tablet) 10 mg PO DAILY [facility]; Protocol Last Admin: 01/03/24 09:08 Dose: 10 mg Documented By: CASEY Enoxaparin Sodium (Enoxaparin Sodium 40 Mg/0.4 Ml Syringe) 40 mg SUBCUT Q24H [facility] Last Admin: 01/02/24 20:18 Dose: 40 mg Documented By: EMMA Daptomycin 930 mg/ Sodium (Chloride) 68.6 mls @ 115.079 mls/hr IV Q24H [facility] Last Infusion: 01/03/24 11:38 Dose: Infused Documented By: CASEY Lisinopril (Lisinopril 10 Mg Tablet) 10 mg PO DAILY [facility]; Protocol Last Admin: 01/03/24 09:08 Dose: 10 mg Documented By: CASEY Melatonin (Melatonin 3 Mg Tablet) 6 mg PO BEDTIME PRN PRN Reason: Insomnia Last Admin: 01/02/24 22:55 Dose: 6 mg Documented By: EMMA Methadone HCl (Methadone Hcl 20 Mg/2 Ml Oral.Conc) 125 mg PO DAILY [facility] Last Admin: 01/03/24 09:08 Dose: 125 mg Documented By: CASEY Ondansetron HCl (Ondansetron Hcl 4 Mg/2 Ml Vial) 4 mg IVPUSH Q8H PRN PRN Reason: Nausea and Vomiting Senna (Sennosides 8.6 Mg Tablet) 17.2 mg PO BEDTIME PRN PRN Reason: Constipation Last Admin: 12/30/23 23:50 Dose: 17.2 mg Documented By: CHELSEY Comments: pt feels constipated , haven't had a bowel movement in 4 days Sodium Chloride (0.9 % Sodium Chloride Flush 3 Ml Syringe) 3 ml IVFLUSH QSHIFT [facility] Last Admin: 01/03/24 09:11 Dose: Not Given Documented By: CASEY Non-Admin Reason: Given as 5mL in PICC line. Sodium Chloride (0.9 % Sodium Chloride Flush 10 Ml Syringe) 5 ml IVFLUSH TID [facility] Last Admin: 01/03/24 09:10 Dose: 5 ml Documented By: CASEY Labs 12/28/23 05:46 01/02/24 05:44 Assessment and Plan (1) Cellulitis of right leg: Status: Acute Plan 48yo M with IDU, PAD, HTN, OUD on methadone, hx MSSA bacteremia admitted with extensive RLE cellulitis with possible abscess vs tenosynovisits of posterior tibial tendon. Has been maintained on vancomycin 1.Cellulitis with abscess vs posterior tibialis tenosynovitis?steomyelitis of the tibia/MSSA + Bacillus bacteremia -pip-lukas 12/26-12/28, vanco 12/26-, noted to have rash likely from vanco. DC in favor of daptomycin. Repeat BCx from 12/29 negative; ID will need 6 wk IV ABX from culture clearance date(12/30/23) 2.HTN urgency - acceptable control on current therapies -adjust as indicated 4.HCV Ab+ - viral load pending -outpatient follow-up 5.OUD -methadone as ordered Full code Lovenox In my clinical judgment, the patient requires continued inpatient hospitalization for the following reasons: IV ABX, advanced imaging, specialty consultation Quality Stroke Does the patient have a stroke diagnosis?: No VTE Prior VTE?: No VTE Risk Level:: Medical - moderate - high VTE Device Contraindication: Treatment Not Indicated VTE Drug Contraindication: N/A - Med Ordered
[2024-01-03 15:11] VITALS: BP 131/76; PULSE 83; RESP 18; TEMP 36.6; O2SAT 94
[2024-01-03 19:24] VITALS: BP 146/71; PULSE 87; RESP 18; TEMP 36.6; O2SAT 97
[2024-01-03] MEDS: Enoxaparin Sodium 40 MG/0.4 ML SYRINGE SUBCUT (20:20)
[2024-01-03] MEDS: Melatonin 3 MG TABLET 6 MG PO (23:31)
[2024-01-04 03:20] VITALS: BP 167/88; PULSE 82; RESP 16; TEMP 36.4; O2SAT 97
[2024-01-04 07:48] VITALS: BP 162/82; PULSE 89; RESP 18; TEMP 36.6; O2SAT 97
[2024-01-04] MEDS: methADONE HCl 20 MG/2 ML ORAL.CONC 125 MG PO (08:39)
[2024-01-04] MEDS: amLODIPine Besylate 10 MG TABLET PO (08:39)
[2024-01-04] MEDS: lisinopriL 10 MG TABLET PO (08:39)
[2024-01-04] MEDS: 0.9 % Sodium Chloride Flush 10 ML SYRINGE 5 ML IVFLUSH (08:39)
--- NOTE | 2024-01-04 09:08 | P.CONOP_ITS ---
History of Present Illness HPI Consult date: 01/03/24 Chief complaint: cellulitis IVDA Narrative: Sven is a 48 yo M with RLE cellulitis for almost 2 weeks who has been improving on IV abx but MRI recently showed inflammation around the posterior tibial tendon sheath and I was asked to see him for concern of septic tenosynovitis. He reports feeling well. He has not been walking on his foot however. He describes pain around the medial malleolus. He had been injecting his right leg. [facility] Past Medical History Medical History Opioid dependence HTN (hypertension) PAD (peripheral artery disease) Active substance abuse Family History Family history: reviewed and not pertinent Social History Social History Household Members: Family Household Members Other:: 2 Housing: Other Housing Other:: duplex Do you presently have visiting nurse or other home services: No Alcohol intake: never Comment: Refusing alarms. Patient Tobacco Use Status: Current everyday Tobacco user Tobacco use type: Cigarette Cigarettes Per Day: 2 e-Cigarette/Vaping Use: Currently Using Substance Use Type: Heroin, Marijuana and Opiates service: No Current occupational status: disabled Meds Allergies Allergy/AdvReac Type Severity Reaction Status Date / Time shellfish derived Allergy Unknown ANGIOEDEMA Verified 01/13/22 11:01 [SHELLFISH DERIVED] shellfish Allergy Unknown anaphylaxis Uncoded 12/14/21 13:50 Active Medications: Current Medications Acetaminophen (Acetaminophen 325 Mg Tablet) 650 mg PO Q6H PRN PRN Reason: Pain, Mild (Pain Scale 1-3) Last Admin: 01/03/24 23:31 Dose: 650 mg Amlodipine Besylate (Amlodipine Besylate 10 Mg Tablet) 10 mg PO DAILY [facility]; Protocol Last Admin: 01/04/24 08:39 Dose: 10 mg Enoxaparin Sodium (Enoxaparin Sodium 40 Mg/0.4 Ml Syringe) 40 mg SUBCUT Q24H [facility] Last Admin: 01/03/24 20:20 Dose: 40 mg Daptomycin 930 mg/ Sodium (Chloride) 68.6 mls @ 115.079 mls/hr IV Q24H [facility] Last Infusion: 01/03/24 11:38 Dose: Infused Lisinopril (Lisinopril 10 Mg Tablet) 10 mg PO DAILY [facility]; Protocol Last Admin: 01/04/24 08:39 Dose: 10 mg Melatonin (Melatonin 3 Mg Tablet) 6 mg PO BEDTIME PRN PRN Reason: Insomnia Last Admin: 01/03/24 23:31 Dose: 6 mg Methadone HCl (Methadone Hcl 20 Mg/2 Ml Oral.Conc) 125 mg PO DAILY [facility] Last Admin: 01/04/24 08:39 Dose: 125 mg Ondansetron HCl (Ondansetron Hcl 4 Mg/2 Ml Vial) 4 mg IVPUSH Q8H PRN PRN Reason: Nausea and Vomiting Senna (Sennosides 8.6 Mg Tablet) 17.2 mg PO BEDTIME PRN PRN Reason: Constipation Last Admin: 12/30/23 23:50 Dose: 17.2 mg Sodium Chloride (0.9 % Sodium Chloride Flush 3 Ml Syringe) 3 ml IVFLUSH QSHIFT [facility] Last Admin: 01/04/24 08:38 Dose: Not Given Sodium Chloride (0.9 % Sodium Chloride Flush 10 Ml Syringe) 5 ml IVFLUSH TID [facility] Last Admin: 01/04/24 08:39 Dose: 5 ml Home Medications Medication Instructions Recorded Confirmed Last Taken Type methadone 10 mg/mL oral 125 mg PO DAILY 12/27/23 12/28/23 12/27/23 History concentrate (Methadose) Physical Exam 2 Vital Signs: Vital Signs: Last Vital Signs Temp 97.9 F 01/04/24 07:48 Pulse 89 01/04/24 07:48 Resp 18 01/04/24 07:48 BP 162/82 H 01/04/24 07:48 Pulse Ox 97 01/04/24 07:48 O2 Del Method Room Air 01/04/24 07:48 BMI result Body Mass Index 37.0 Extrem: Other: There is ttp over the posterior aspect of the medial malleolus and over the course of the posterior tibial tendon at the ankle level. There is no palpable fluid collection. There is no eccymosis. He can toe raise with mild discomfort. He has healed injection sites in his leg. He can resist inversion and eversion of the midfoot without pain. Results Labs 12/28/23 05:46 01/02/24 05:44 Labs: H & H 12/27/23 12/28/23 Range/Units 16:50 05:46 Hgb 12.7 L 12.3 L (14.0-18.0) g/dl Hct 37.1 L 35.9 L (42.0-52.0) % All other labs normal. Diagnostic results Ankle/Foot MRI: image reviewed (Posterior tibial and flexor digitorum tenosynovitis with significant surrounding intramuscular edema signal and fascial edema signal extending proximally within the deep posterior compartment musculature at the level of the proximal tibial metaphysis. Given the concern for infection, this is most co) Assessment and Plan (1) Cellulitis of right leg: Status: Acute Plan Right leg cellulitis with MRI demonstrating fluid around the posterior tibial tendon. On exam he does not have evidence of septic tenosynovitis. He continues to have resolution of cellulitis. At this point there is nothing that surgery would reliably improve. I recommend continuing with IV abx and we will continue to follow. Procedures Date of Service Date of Service: 01/04/24
--- NOTE | 2024-01-04 12:35 | MHC.CM.PN ---
EMR REVIEWED. PER MD ROUNDS PATIENT IS MEDICALLY CLEARED FOR DC AND WILL NOT REQUIRE ORTHO/SURGICAL INTERVENTION. PER DONYA AT [facility] GUEST DOSING IS APPROVED. S TRANSPORTATION SCHEDULED FOR 4PM TO [facility] TO COMPLETE IV ABX. FACILITY, [facility], RN AND PATIENT AWARE.
[2024-01-04] MEDS: Acetaminophen 325 MG TABLET 650 MG PO (12:39)
--- NOTE | 2024-01-04 13:57 | PM.DS ---
DS: Providers Provider Date of Service: 01/04/24 Date of admission: 12/27/23 20:33 Date of discharge: 01/04/24 Primary care physician: None Physician Consults: 12/27/23 21:17 Addiction Medicine Routine Consulting Provider: Addiction Covering Reason for consultation: polysubstance use disorder 12/28/23 07:49 Consult to Orthopedics Routine Consulting Provider: [facility] Orthopedic Surgeons Reason for consultation: abscess vs tenosynovitis of post tib tendon sheath 12/29/23 08:22 Consult to Infectious Diseases Routine Consulting Provider: [facility] Infectious Disease Reason for consultation: bacteremia 01/02/24 10:35 Consult to Infectious Diseases Routine Consulting Provider: BISI CORONADO Reason for consultation: bacteremia Has provider been notified: Yes Attending physician on discharge: Joey Garcia Discharging clinician: Mary Mcfarlane DS: Diagnosis Discharge Diagnosis (1) Cellulitis of right leg: Status: Acute (2) Bacteremia: Status: Acute (3) Opioid use disorder: Status: Acute DS: Summary Hospital Course Hospital Course: 48-year-old male with history of peripheral artery disease, hypertension, ongoing IV drug abuse (heroin-last use just prior to arrival), opiate dependence on methadone with history of MSSA bacteremia presented to the ED earlier today for evaluation of redness, pain, swelling in the right lower extremity ongoing for 4 days. He admits to injecting heroin into the bilateral lower extremities on a regular basis, more often in the left than right. However about 4 days ago noted increasing redness and swelling of the right lower leg without any active drainage. Reports chills but no documented fevers. He also reports marijuana use but denies any other illicit drug use. He does smoke 2-3 cigarettes on a daily basis but denies any alcohol use. He has been following with [facility] for his methadone and desires rehab. On arrival, patient quite hypertensive to 236/136 with blood pressure 192/99 on admission. Vitals otherwise stable. He does have a history of hypertension but has not been seen by PCP or taken medications in quite some time. Denies any headaches, visual changes, chest pain. There is no leukocytosis. There is a stable normocytic anemia with H/H 12.7/37.1%. Renal function normal, electrolyte levels normal. AST 63, ALT 88, alkaline phosphatase 119. Venous duplex negative for DVT in the right lower extremity. X-ray of the right tib/fib, foot, ankle negative for osseous abnormality but shows soft tissue swelling and right ankle effusion. Patient will be admitted for further management of extensive cellulitis of the right lower extremity in IV drug abuser. Hospital course Admitted to general medical floor and started on IV vancomycin. Seen in consultation by ID and recommended total of 6 weeks of IV antibiotics. PICC line was placed after negative blood cultures; noted to have a granular rash consistent with allergic reaction to vancomycin. Vancomycin was DC in favor of daptomycin. Was followed by Orthopedics; underwent MRI of his right lower which demonstrated posterior tibial and flexor digitorum tenosynovitis with significant surrounding edema and fascial edema. Orthopedics discussed case with patient and it was deemed that surgery was not indicated at this time and conservative measures including completing antibiotic therapy were recommended. At this point in time he is medically acceptable for discharge to complete his course of daptomycin. 6 weeks from first negative blood cultures on 12/29 - end date February 09. HCV will need outpatient follow up. Time Attestation Discharge Coordination Time (in mins): 35 Quality: Safe Use of Opioids Does Pt have an Active Cancer Diagnosis on the Problem List?: No Quality: Stroke Does the patient have a stroke diagnosis?: No Physical Exam Vital Signs: Vital Signs: Last Vital Signs Temp 97.9 F 01/04/24 07:48 Pulse 89 01/04/24 07:48 Resp 18 01/04/24 07:48 BP 162/82 H 01/04/24 07:48 Pulse Ox 97 01/04/24 07:48 O2 Del Method Room Air 01/04/24 07:48 BMI result Body Mass Index 37.0 Const: General: cooperative, comfortable, no acute distress, alert and awake Nutritional Appearance: average body habitus Orientation/consciousness: patient oriented x3 Resp: Effort & Inspection: normal respiratory effort, able to speak in complete sentences, no respiratory distress and no use of accessory muscles Cardio: Rate: regular rate GI: Inspection: No distended Palpation (GI): Soft to palpation Neuro: General: patient oriented x3, moves all extremities and CN's II-XI intact bilaterally Extrem: Other: PICC line present RUE no surrounding erythema mild erythema right lower extremity significantly improved, no significant swelling, no induration or drainage DS: Data Data Completed and Pending Completed studies during hospitalization [Text1]: Procedures Extirpation of Matter from Left Posterior Tibial Artery, Open Approach (11/25/21) Insertion of Infusion Device into Left Basilic Vein, Percutaneous Approach (11/25/21) Repair Left Posterior Tibial Artery, Open Approach (11/25/21) Labs on day of discharge: Preliminary micro results at discharge 12/27/23 21:22 Blood Culture - Preliminary Blood - Venous Staphylococcus aureus Bacillus species 12/27/23 21:22 Blood Culture - Preliminary Blood - Venous Bacillus species Discharge Plan Discharge Anticipated Discharge Date/Time: 01/04/24 16:09 Patient Disposition: Xfer Acute Care Hospital Discharge Diagnosis: Cellulitis right lower extremity bacteremia - MSSA, bacillus species Referrals: [facility] [Outside] - 1 Day (Complete IV antibiotics) Bisi Coronado MD [Physician] - 1 Month Physician,None [Primary Care Provider] - 1 Week Robin Ireland PA-C [Physician [employer] Heat Pump Machinist] - 2 Weeks Discharge Medications: New amlodipine 10 mg Tablet 10 mg PO DAILY Qty: 30 0RF Protocol: Hold for SBP< HOLD for SBP < : 90 lisinopril 10 mg Tablet 10 mg PO DAILY Qty: 30 0RF Protocol: Hold for SBP< HOLD for SBP < : 90 daptomycin 500 mg Recon Soln 930 mg IV Q24H 36 Days Qty: 36 0RF Continued methadone [Methadose] 10 mg/mL Concentrate 125 mg PO DAILY Discharge Orders: Discharge Order (Routine); Ordered 01/04/24 Ordered By: Mary Mcfarlane Diet: Advance to usual diet Activity on Discharge: As tolerated Stand Alone Forms: Patient Portal Discharge page Care Plan Goals: Continue all medicines including methadone as ordered Health Concerns: RLE cellulitis bacteremia due to MSSA/bacillus species HCV Plan of Treatment: Daptomycin daily x 6 weeks - end date February 09. monitor cbc, bmp weekly while receiving abx starting on Sunday 01/07 will need outpatient follow up with ID follow up with orthopedics in two weeks will need oupatient follow up with GI for management of hepatitic C Assessment: See discharge summary
[2024-01-04 15:46] VITALS: BP 137/69; PULSE 85; RESP 20; TEMP 36.4; O2SAT 95
--- NOTE | 2024-01-08 07:37 | P.CDIM_ITS ---
PROVIDER RESPONSE TEXT: To clarify, the appropriate diagnosis supported by the clinical indicators: Obesity Due to excess calories QUERY TEXT: PHYSICIAN'S DOCUMENTATION REQUEST Date of Query: 01/03/2024 01:05 PM EDT Patient Name: Sven Mcpherson Admit Date: 12/28/2023 Dear Christiano Kate, A review of the medical record indicates additional documentation may be needed. Please review below and update the documentation accordingly. Clinical Indicators: Nursing notes Height and Weight: BMI 37.0 Obese class II 120.2kg If possible, please provide an associated diagnosis related to the abnormal BMI, such as: Overweight Obesity Due to excess calories Obesity Drug induced Obesity Due to other cause Specify the other cause Other (explain) Clinically unable to determine (explain) Thank you, Yasmine Ballesteros, CCS, CDIS Use of terms such as suspected, likely, concern for, or probable (associated with a specific diagnosi s that is being evaluated, monitored, or treated as if it exists) are acceptable and can be coded in the inpatient se tting, when documented at the time of discharge. Please use your independent medical judgment in providing your response. THIS QUERY IS PART OF THE PERMANENT MEDICAL RECORD
== END 2024-01-04 16:23 | disposition short-term general hospital (02) | DRG 383 ==
LOC: HO.ED 19:36 → HO.EDOVER 20:55 → HO.S3 12-29 14:23
PROVIDERS: Family Medicine; Physician Assistant Medical; Admitting Provider Physician Assistant; Emergency Provider Emergency Medicine; Visit Provider Physician Assistant Medical
PROC: 02HV33Z Insertion of Infusion Device into Superior Vena Cava, Percutaneous Approach (ICD-10-PCS; principal; 2024-01-01 11:30)
DX: L03.115 Cellulitis of right lower limb (principal); R78.81 Bacteremia; M65.861 Other synovitis and tenosynovitis, right lower leg; I73.9 Peripheral vascular disease, unspecified; B19.20 Unspecified viral hepatitis C without hepatic coma; E66.09 Other obesity due to excess calories; Z68.37 Body mass index [BMI] 37.0-37.9, adult; L27.0 Generalized skin eruption due to drugs and medicaments taken internally; T36.8X5A Adverse effect of other systemic antibiotics, initial encounter; F11.20 Opioid dependence, uncomplicated; F17.210 Nicotine dependence, cigarettes, uncomplicated; Z71.6 Tobacco abuse counseling; I16.0 Hypertensive urgency; B95.61 Methicillin susceptible Staphylococcus aureus infection as the cause of diseases classified elsewhere; Z79.899 Other long term (current) drug therapy
CPT/HCPCS: 36415; 36573; 73590; 73610; 73630; 73700; 73701; 73720; 80048; 80076; 80202; 82565; 83605; 85025; 85652; 86140; 86704; 86706; 86803; 87040; 87077; 87186; 87205; 87340; 87389; 87522; 93306; 93971; 99285; A9585; C1751; J0878; J1170; J1650; J2270; J2543; J3370; J3371; Q9967

== ENCOUNTER 2023-12-27 20:33 | Outpatient (BNV) | payer OTHER, SELFPAY | END 2023-12-29 07:00 | PROVIDERS: Admitting Provider Physician Assistant; Emergency Provider Emergency Medicine; Visit Provider Internal Medicine Cardiovascular Disease | DX: I35.1 Nonrheumatic aortic (valve) insufficiency (principal) | CPT/HCPCS: 93306 ==

== ENCOUNTER → 2023-12-27 20:33 | Outpatient (BNV) | payer OTHER, SELFPAY | PROVIDERS: Admitting Provider Physician Assistant; Emergency Provider Emergency Medicine; Visit Provider Physician Assistant | DX: L03.115 Cellulitis of right lower limb (principal) | CPT/HCPCS: 99223; 99232; 99233; 99239; 99499 ==

== ENCOUNTER → 2023-12-27 20:33 | Outpatient (BNV) | payer OTHER, SELFPAY | PROVIDERS: Admitting Provider Physician Assistant; Emergency Provider Emergency Medicine; Visit Provider Internal Medicine | DX: L03.115 Cellulitis of right lower limb (principal); R78.81 Bacteremia | CPT/HCPCS: 99222; 99232 ==

== ENCOUNTER → 2023-12-27 20:33 | Outpatient (BNV) | payer OTHER, SELFPAY | PROVIDERS: Admitting Provider Physician Assistant; Emergency Provider Emergency Medicine; Visit Provider Physician Assistant | DX: L03.115 Cellulitis of right lower limb (principal) | CPT/HCPCS: 99221; 99222; 99231; 99499 ==

== ENCOUNTER 2024-01-05 21:51 | Emergency (ER) | payer OTHER, SELFPAY ==
[2024-01-05 22:20] VITALS: BP 171/111; PULSE 105; RESP 14; TEMP 35.9; O2SAT 96; BMI 36.8
[2024-01-06] VITALS (9 sets, daily range): BP systolic 118–172; BP diastolic 77–94; PULSE 70–94; RESP 16–18; TEMP 36.4–36.9; O2SAT 95–99
--- NOTE | 2024-01-06 00:39 | MHC.EDTECH ---
This tech took over care of patient at this time,hourly rounds and vitals completed,call salazar in reach
--- NOTE | 2024-01-06 02:02 | ED.GENADULT ---
HPI - General Adult General Chief complaint: General Medical Stated complaint: ?Needs antibiotics/ Has picc line Time Seen by Provider: 01/06/24 02:02 History of Present Illness HPI narrative: The patient is a 48-year-old male who was recently hospitalized at this hospital for an infection in his right leg. He was initially treated with vancomycin but apparently developed a possible allergic reaction and was switched to daptomycin. The patient had presented to this hospital 10 days ago on December 26. He was discharged from this hospital on December 26 with a PICC line in his right arm. At discharge she was filled nursing [facility] in [facility]. He arrived there on night. Apparently the facility was not able to obtain the daptomycin needed and he was therefore sent back to the emergency room here as he was not getting his daptomycin dose today. Related Data Home Medications Medication Instructions Recorded Confirmed methadone 10 mg/mL oral 125 mg PO DAILY 12/27/23 12/28/23 concentrate (Methadose) Previous Rx's Medication Instructions Recorded amlodipine 10 mg tablet 10 mg PO DAILY #30 tabs 01/03/24 daptomycin 500 mg intravenous 930 mg IV Q24H 36 days #36 ea 01/03/24 solution lisinopril 10 mg tablet 10 mg PO DAILY #30 tabs 01/03/24 Allergies Allergy/AdvReac Type Severity Reaction Status Date / Time shellfish derived Allergy Unknown ANGIOEDEMA Verified 01/05/24 22:20 [SHELLFISH DERIVED] shellfish Allergy Unknown anaphylaxis Uncoded 01/05/24 22:20 Review of Systems Review of Systems: Yes all other systems are reviewed and are negative [facility] Past Medical History Medical History Opioid dependence HTN (hypertension) PAD (peripheral artery disease) Active substance abuse Social History Social History Household Members: Family Household Members Other:: 2 Housing: Other Housing Other:: duplex Do you presently have visiting nurse or other home services: No Alcohol intake: never Comment: Refusing alarms. Patient Tobacco Use Status: Current everyday Tobacco user Tobacco use type: Cigarette Cigarettes Per Day: 2 e-Cigarette/Vaping Use: Currently Using Substance Use Type: Heroin, Marijuana and Opiates Advance Directives: Yes Advance Directives on File: Yes Advance Directives Date on File: 12/01/21 service: No Current occupational status: disabled Physical Exam ED Vital Signs: Vital Signs - 24 hr 01/05/24 22:20 01/06/24 00:38 01/06/24 02:50 Temperature 96.7 F L 98.3 F 98.0 F Pulse Rate 105 H 94 83 Respiratory Rate 14 18 18 Blood Pressure 171/111 H 148/86 H 160/90 H Pulse Oximetry 96 98 98 Oxygen Delivery Method Room Air Room Air Room Air 01/06/24 06:00 01/06/24 08:10 Temperature 98.5 F Pulse Rate 86 89 Respiratory Rate 16 16 Blood Pressure 150/78 H 172/93 H Pulse Oximetry 96 99 Oxygen Delivery Method Room Air Room Air BMI result Body Mass Index 36.8 Const Other: The patient was awake and alert. He did not appear in obvious distress or seem obviously acutely ill. HENMT Other: Will, mucous membranes moist Eyes Other: Pupils are round equal, conjunctivae are clear, extraocular movements intact Neck Other: Neck is supple, no JVD Resp Effort & Inspection: normal respiratory effort Auscultation: clear to auscultation bilaterally Cardio Rate: regular rate Rhythm: regular rhythm Heart sounds: S1 normal heart sound present and S2 normal heart sound present GI Other: Abdomen is soft and nontender Skin Other: There are signs of very faint erythema to the right lower leg. The patient says this is significantly improved from how his leg looked 10 days ago. Neuro Other: The patient is awake and alert, mental status is clear, grossly neurologically intact Extrem Other: Some very subtle and faint pale erythema to the right lower leg apparently considerably better compared to 10 days ago. No significant tenderness. Medical Decision Making Medical Decision Making MDM Narrative: The patient is a 48-year-old male who was recently hospitalized at this hospital for a right lower leg infection. His part of his evaluation he had an MRI that showed posterior tibial tendon sheath inflammation. Orthopedics was consulted and felt this should be managed conservatively. The patient was ultimately improved after a 10 day stay in the hospital and was discharged to a local nursing facility with a PICC line in the right arm to continue IV daptomycin therapy through February 09. The patient has been receiving 930 mg of IV daptomycin every 24 hours. This will be a 36 day course. The patient's blood cultures grew staph aureus and a bacillus species The patient was sent back to the emergency room here from the [facility] apparently because they did not have access to daptomycin. [facility] were concerned that the patient would go a long time without IV antibiotics and so sent him back. Here the patient seems clinically stable and has no particular complaints aside from frustration with what happened with his experience [facility] the [facility]. I have ordered his dose of daptomycin. I have also ordered his methadone and his regular antihypertensive medications. I think case management will need to see the patient again. I will be signing the patient out to the oncoming emergency physician this morning at change of shift Discharge Plan Discharge Clinical Impression: Cellulitis of right leg, Bacteremia, Opioid use disorder Patient Disposition: Still a Patient Prescriptions: No Action methadone [Methadose] 10 mg/mL Concentrate 125 mg PO DAILY amlodipine 10 mg Tablet 10 mg PO DAILY Qty: 30 0RF Protocol: Hold for SBP< HOLD for SBP < : 90 lisinopril 10 mg Tablet 10 mg PO DAILY Qty: 30 0RF Protocol: Hold for SBP< HOLD for SBP < : 90 daptomycin 500 mg Recon Soln 930 mg IV Q24H 36 Days Qty: 36 0RF
--- NOTE | 2024-01-06 02:30 | PC.NURSE ---
Daptomycin is not available to be administered. MD notified; OK with waiting until pharmacy is available. monorail charger operator is also aware.
--- NOTE | 2024-01-06 06:13 | MHC.EDTECH ---
Hourly rounds and vitals completed,patient was given a can of vilma mauricio per request,patient is resting comfortably call salazar in reach
--- NOTE | 2024-01-06 07:22 | PC.NURSE ---
Called pharmacy re dapto- per pharmacy dapto will be made around 8am and then brought to ED.
--- NOTE | 2024-01-06 07:30 | PC.NURSE ---
Patient received 125mg of methadone at [facility] on 01/03 and 125mg at [facility] on 01/04. Verification faxed to pharmacy and provider notified
--- NOTE | 2024-01-06 09:47 | HE.PHANOTE ---
re methadone dose last dose 125 mg given 01/05/24 @ [facility]
[2024-01-06] MEDS: methADONE HCl 20 MG/2 ML ORAL.CONC 125 MG PO (09:59)
[2024-01-06] MEDS: amLODIPine Besylate 10 MG TABLET PO (09:59)
[2024-01-06] MEDS: lisinopriL 10 MG TABLET PO (10:01)
--- NOTE | 2024-01-06 11:22 | PC.NURSE ---
Alert and oriented, denies pain or discomfort. States does not want to return to [facility]
--- NOTE | 2024-01-06 12:28 | PC.NURSE ---
Report given to overflow SOTO espinoza
--- NOTE | 2024-01-06 12:41 | PC.NURSE ---
report received from SOTO Camara
--- NOTE | 2024-01-06 12:54 | PC.NURSE ---
assumed care at 12:50PM, patient brought over to overflow unit via stretcher, patient is alert and oriented, reports 7/10 pain in RLE, tiger texted Portia Harding for pain medication, awaiting response.
[2024-01-06] MEDS: Acetaminophen 325 MG TABLET 650 MG PO (13:17)
--- NOTE | 2024-01-06 13:20 | PC.NURSE ---
This RN reached out to provider to request pain medication, APAP placed, pt offered medication and was in agreement, order also placed for Oxycodone, plan in place to take APAP first and reassess pain level and give Oxycodone at later time if pain is not relieved.
--- NOTE | 2024-01-06 13:25 | MHC.CM.ED ---
Addendum entered by Adriana Gabriel 01/06/24 13:42: Received return telephone call from Radha at [facility]. Radha confirms she has been trying to get patient's IV antibiotic without success. She was told by [facility] that the med should be delivered tonight but it's not guaranteed. Patient will be due to next dose tomorrow 01/06 at 11am. Patient will remain in ER until delivery of medication has been confirmed. CM will call Radha via telephone at [phone] to confirm. Patient, Maylin VALERA and Portia LEMON aware. Original Note: Received case management consult from Dr Santos. Patient was d/c'd from [facility] on 01/03 to [facility] via a PICC and RX for daptomycin for 36 days. Patient returned to ER because facility did not have his IV antibiotics. Patient was given IV antibiotics. Referral made in [facility] to see if patient can return. Waiting to hear back. Also waiting to hear back from nurse at [facility]. Continue to monitor for d/c needs.
[2024-01-06] MEDS: oxyCODONE HCl Immed Release 5 MG TABLET 10 MG PO (13:58)
--- NOTE | 2024-01-06 19:02 | PC.NURSE ---
assumed care of pt
[2024-01-07] MEDS: Acetaminophen 325 MG TABLET 975 MG PO ×2 (03:22→15:20)
--- NOTE | 2024-01-07 04:25 | PC.NURSE ---
Assumed care of patient . Patient c/o right leg pain 04/24 requesting Tylenol. Contacted provider for Tylenol order. Tylenol 975 ordered/administered to patient. Will continue to monitor.
[2024-01-07 05:49] VITALS: BP 157/89; PULSE 76; RESP 18; TEMP 36.2; O2SAT 95
[2024-01-07] MEDS: methADONE HCl 20 MG/2 ML ORAL.CONC 125 MG PO (07:48)
[2024-01-07] MEDS: lisinopriL 10 MG TABLET PO (07:49)
[2024-01-07] MEDS: amLODIPine Besylate 10 MG TABLET PO (07:49)
[2024-01-07 07:54] VITALS: BP 159/93; PULSE 82
--- NOTE | 2024-01-07 07:58 | PC.NURSE ---
Assumed care at 0700. Pt a+o x4, respirations even + unlabored. Pt sitting up in bed watching tv. He reports 7/10 RLE pain, will follow-up on pain relief. Breakfast given, personal care supplies given, urinal emptied-350 mls, meds given as document. Will continue to observe. Vss..
--- NOTE | 2024-01-07 10:47 | MHC.CM.PN ---
Addendum entered by Janette Hatch 01/07/24 13:18: CM attempted to reach Radha at the 617 phone# provided. A was left requesting a return call call regarding the patients ABX. Another message was left for the Liason in the [employer] system too. A request for an update on the status of the patients ABX has been sent. Addendum entered by Janette Hatch 01/07/24 11:27: A message has been sent via [employer] to the [facility] Liason. A request for assistance with obtaining information regarding prescribed ABX availability. Notification sent that information regarding the medication has not been received from the building. Original Note: Call to Radha No answer full SMS message sent 9am+ 10:30am. No return call. [employer] called x2. Unable to reach a person to confirm ABX obtained. A message was left for the Senior Technical Business Analyst of the day. Request for a return call to office re ABX availability and return of patient to SNF.
--- NOTE | 2024-01-07 10:51 | PC.NURSE ---
URINAL EMPTIED 300 ML
[2024-01-07 13:50] VITALS: BP 147/68; PULSE 80; RESP 16; TEMP 36.6; O2SAT 97
--- NOTE | 2024-01-07 17:17 | MHC.EDTECH ---
this pct assumed care of patient at 1500 ,patient in bed watching television ,ate 100 % of dinner and drank 360 ml fluids ,450 ml urine empty from urinal .
[2024-01-07 19:08] VITALS: BP 149/60; PULSE 64; RESP 16; TEMP 36.9; O2SAT 97
[2024-01-07] MEDS: Melatonin 3 MG TABLET 6 MG PO (20:33)
--- NOTE | 2024-01-07 20:58 | PC.NURSE ---
pt was asking for the Melatonin, MD notified, received once dose. given by this nurse. flushed 1 lumen picc line on right upper arm,dressing intact, patency, blood returned. no complication noticed. will cont. monitor.
[2024-01-08] MEDS: Acetaminophen 325 MG TABLET 650 MG PO ×3 (01:39→15:42)
--- NOTE | 2024-01-08 02:37 | MHC.EDTECH ---
550 ml urine empty ,pt still awake watching television ,call salazar within reach.
[2024-01-08 05:49] VITALS: BP 135/96; PULSE 111; RESP 18; TEMP 36.9; O2SAT 97
[2024-01-08 07:36] VITALS: BP 166/91; PULSE 79; RESP 18; TEMP 36.3; O2SAT 98
[2024-01-08] MEDS: lisinopriL 10 MG TABLET PO (08:09)
[2024-01-08] MEDS: amLODIPine Besylate 10 MG TABLET PO (08:09)
[2024-01-08] MEDS: methADONE HCl 20 MG/2 ML ORAL.CONC 125 MG PO (08:09)
--- NOTE | 2024-01-08 10:20 | MHC.EDTECH ---
Pt ate 100% of his breakfast and 240cc of fluids
--- NOTE | 2024-01-08 10:39 | MHC.EDTECH ---
Emptied urinal at 500cc
--- NOTE | 2024-01-08 13:23 | MHC.CM.ED ---
Addendum entered by Adriana Gabriel 01/08/24 14:17: Spoke with nurse at [facility]. They had to re-fax Rx for dapto. Prescription refaxed by facility. Waiting to hear when medication will be delivered. Original Note: Patient remains in ER overflow. Spoke with Radha from [facility] via telephone. Radha is still in the process of trying to obtain Dapto from their pharmacy. However, Radha is not working today. Radha will ask the nurse at [facility] to call . Received notification from Inez RN that patient does not want to return to [facility]. T/W explained patient has a history of substance abuse, currently has a PICC and is on Methdaone. Other facilities can be pursued but they will be in the [place] area. Patient does not want to go that far because his family is here. Outpatient infusion is not a feasible possibility due to history of substance abuse. Milagros LEMON aware. Changing antibiotics to PO are not an option due to bacteria. Continue to monitor for d/c needs.
[2024-01-08 14:00] VITALS: BP 176/97; PULSE 91; RESP 20; TEMP 36.2; O2SAT 97
--- NOTE | 2024-01-08 15:46 | PC.NURSE ---
patient reports pain is unrelieved by tylenol, requesting ibuprofen, XOCHILT Cole.
--- NOTE | 2024-01-08 15:48 | PC.NURSE ---
Patient shared with this proposal writer that he did not want to go back to [facility] for completion of his antibiotics, does not like it their Not will to go to [place] or [place] either as too far from family. Outpatient is not an option as history of substance abuse and must be completed in rehab or hospital unless MD changes to PO antibiotics. SKY is aware of the above.
--- NOTE | 2024-01-08 19:19 | PHA.MEDREC ---
Pharmacy Consult ? Medication Reconciliation Pharmacy has completed the medication reconciliation. Patient just discharged on 01/04/24, [facility] discharge summary. Amanda Tate, PharmD
[2024-01-08 19:26] VITALS: BP 185/98; PULSE 85; RESP 17; TEMP 37.1
--- NOTE | 2024-01-08 20:01 | PC.NURSE ---
pt transported from overflow unit to main ED bed 20. this rn assumed care of pt. pt resting in hospital bed, no acute distress noted at this time.
[2024-01-08 20:31] VITALS: BP 164/95; PULSE 88; RESP 17; TEMP 36.7; O2SAT 99
[2024-01-08] MEDS: oxyCODONE HCl Immed Release 5 MG TABLET PO (20:32)
--- NOTE | 2024-01-08 20:34 | PC.NURSE ---
pt reporting 10/10 right foot pain. pt medicated per dec. tolerated well with water.
[2024-01-08] MEDS: Melatonin 3 MG TABLET 6 MG PO (21:34)
[2024-01-08 22:18] VITALS: BP 151/81
[2024-01-09 06:00] VITALS: BP 159/91; PULSE 86; RESP 16; TEMP 36.7; O2SAT 97
[2024-01-09] MEDS: Acetaminophen 325 MG TABLET 650 MG PO (06:32)
[2024-01-09] MEDS: amLODIPine Besylate 10 MG TABLET PO (08:19)
[2024-01-09] MEDS: lisinopriL 10 MG TABLET PO (08:21)
[2024-01-09] MEDS: methADONE HCl 20 MG/2 ML ORAL.CONC 125 MG PO (08:21)
--- NOTE | 2024-01-09 08:51 | MHC.CM.ED ---
Addendum entered by Adriana Gabriel 01/09/24 14:34: [facility] aware patient will not be returning to their facility. Addendum entered by Adriana Gabriel 01/09/24 13:42: Spoke with May. She received confirmation that medication would be delivered tonight. Patient is due for Dapto at 2pm. Offered to give medication here and then transfer patient back to [facility] at 4pm. May agreeable to that plan. Spoke with patient in regards to discharge planning. Patient does not want to return to [facility]. T/W explained other facilities could be pursued but they would be in the [place] or [place] area due to substance abuse history and methadone. Patient also made aware that outpatient infusion was not an option due to substance abuse history. Also explained 36 days of IV antibiotics was recommended by ID due to bacteria findings. Also explained PO antibiotics would not help patient at this time. Patient aware but still insists on not being d/c'd to [facility]. Sallie LEMON made aware and asked to speak with patient. Original Note: Patient remains in ER overflow. T/W spoke with May at [facility]. IV antibiotics are still not available. May will escalate this to her leadership and get back to . Continue to monitor for d/c needs.
[2024-01-09 14:00] VITALS: BP 152/86; PULSE 94; RESP 17; TEMP 36; O2SAT 96
--- NOTE | 2024-01-09 14:01 | ED.GENADULT ---
HPI - General Adult General Chief complaint: General Medical Stated complaint: ?Needs antibiotics/ Has picc line Time Seen by Provider: 01/06/24 02:02 Related Data Home Medications Medication Instructions Recorded Confirmed methadone 10 mg/mL oral 125 mg PO DAILY 12/27/23 01/06/24 concentrate (Methadose) Previous Rx's Medication Instructions Recorded amlodipine 10 mg tablet 10 mg PO DAILY #30 tabs 01/03/24 daptomycin 500 mg intravenous 930 mg IV Q24H 36 days #36 ea 01/03/24 solution lisinopril 10 mg tablet 10 mg PO DAILY #30 tabs 01/03/24 cephalexin 500 mg tablet 500 mg PO Q6H 14 days #56 tabs 01/09/24 doxycycline hyclate 100 mg capsule 100 mg PO BID 5 weeks #70 caps 01/09/24 Allergies Allergy/AdvReac Type Severity Reaction Status Date / Time shellfish derived Allergy Unknown ANGIOEDEMA Verified 01/05/24 22:20 [SHELLFISH DERIVED] vancomycin Allergy Unknown Verified 01/06/24 22:12 shellfish Allergy Unknown anaphylaxis Uncoded 01/05/24 22:[facility] Past Medical History Medical History Opioid dependence HTN (hypertension) PAD (peripheral artery disease) Active substance abuse Social History Social History Household Members: Family Household Members Other:: 2 Housing: Other Housing Other:: duplex Do you presently have visiting nurse or other home services: No Alcohol intake: never Comment: Refusing alarms. Patient Tobacco Use Status: Current everyday Tobacco user Tobacco use type: Cigarette Cigarettes Per Day: 2 e-Cigarette/Vaping Use: Currently Using Substance Use Type: Heroin, Marijuana and Opiates Advance Directives: Yes Advance Directives on File: Yes Advance Directives Date on File: 12/01/21 service: No Current occupational status: disabled Physical Exam ED Vital Signs: Vital Signs - 24 hr 01/08/24 19:26 01/08/24 20:31 01/08/24 22:18 Temperature 98.7 F 98.0 F Pulse Rate 85 88 Respiratory Rate 17 17 Blood Pressure 185/98 H 164/95 H 151/81 H Pulse Oximetry 99 Oxygen Delivery Method Room Air 03/26/24 06:00 Temperature 98.0 F Pulse Rate 86 Respiratory Rate 16 Blood Pressure 159/91 H Pulse Oximetry 97 Oxygen Delivery Method Room Air BMI result Body Mass Index 36.8 Course Reevaluation(s) Reevaluation #1: Patient refusing to go to [facility]. I did discuss this case with ID recommends Keflex for 2 weeks and doxycycline for 5. Patient's PICC line will be pulled. He is refusing IV antibiotics and admission. He tells me he may come back. Educated patient on diagnosis and treatment plan, answered all question, patient verbalizes understanding. At this time patient will be discharged home, advised to return with new or worsening symptoms. Educated on worrisome signs and symptoms and when to return. At this time patient to leave against medical advice. Time: 14:02 Medications Administered Generic Name Dose Route Start Last Admin Trade Name Freq PRN Reason Stop Dose Admin Acetaminophen 975 mg 01/07/24 08:15 01/07/24 15:20 Acetaminophen 325 Mg Tablet PO 975 mg ONCE PRN Administration Pain, Mild (Pain Scale 1-3) Acetaminophen 650 mg 01/08/24 01:27 01/09/24 06:32 Acetaminophen 325 Mg Tablet PO 650 mg Q6H PRN Administration Pain, Mild (Pain Scale 1-3) Amlodipine Besylate 10 mg 01/06/24 09:00 01/09/24 08:19 Amlodipine Besylate 10 Mg Tablet PO 10 mg DAILY SHEILA Administration Protocol Daptomycin 930 mg/ Sodium 68.6 mls @ 137.2 mls/hr 01/08/24 14:00 01/08/24 15:02 Chloride IV Infused Q24H SHEILA Infusion Lisinopril 10 mg 01/06/24 09:00 01/09/24 08:21 Lisinopril 10 Mg Tablet PO 10 mg DAILY SHEILA Administration Protocol Melatonin 6 mg 01/08/24 21:00 01/08/24 21:34 Melatonin 3 Mg Tablet PO 6 mg BEDTIME SHEILA Administration Methadone HCl 125 mg 01/06/24 09:00 01/09/24 08:21 Methadone Hcl 20 Mg/2 Ml Oral.Conc PO 125 mg DAILY SHEILA Administration Discontinued Medications Generic Name Dose Route Start Last Admin Trade Name Freq PRN Reason Stop Dose Admin Acetaminophen 650 mg 01/06/24 12:56 01/06/24 13:17 Acetaminophen 325 Mg Tablet PO 01/06/24 12:57 650 mg ONCE ONE Administration Acetaminophen 975 mg 01/07/24 02:53 01/07/24 03:22 Acetaminophen 325 Mg Tablet PO 01/07/24 02:54 975 mg ONCE ONE Administration Daptomycin 930 mg/ Sodium 68.6 mls @ 100 mls/hr 01/06/24 02:17 01/06/24 09:38 Chloride IV 01/06/24 02:58 Not Given ONCE ONE Daptomycin 930 mg/ Sodium 68.6 mls @ 100 mls/hr 01/06/24 09:00 01/06/24 11:10 Chloride IV 01/06/24 09:41 Infused ONCE ONE Infusion Daptomycin 930 mg/ Sodium 68.6 mls @ 100 mls/hr 01/07/24 13:30 01/07/24 15:19 Chloride IV Infused Q24H SHEILA Infusion Melatonin 6 mg 01/07/24 20:27 01/07/24 20:33 Melatonin 3 Mg Tablet PO 01/07/24 20:28 6 mg ONCE ONE Administration Oxycodone HCl 10 mg 01/06/24 13:12 01/06/24 13:58 Oxycodone Hcl Immed Release 5 Mg Tablet PO 01/06/24 13:13 10 mg ONCE ONE Administration Oxycodone HCl 5 mg 01/08/24 20:10 01/08/24 20:32 Oxycodone Hcl Immed Release 5 Mg Tablet PO 01/08/24 20:11 5 mg ONCE ONE Administration Critical Care Time Critical Care Time Critical Care Time: Yes Total Critical Care Time: 45 Attestation: I attest to this time spent taking care of the patient, obtaining history, physical, reviewing labs, imaging, speaking to my attending, speaking to specialist. Discharge Plan Discharge Clinical Impression: Cellulitis of right leg, Bacteremia, Opioid use disorder, Left against medical advice Patient Disposition: Left Against Medical Advice Instructions: Cellulitis (ED) Additional Instructions: Take your medications as prescribed. If you were prescribed antibiotics today, it is important that you take your medication to their entirety, do not skip any doses, do not finish them early. Follow-up with your primary care provider this week. Return to the emergency department with new or worsening symptoms. In case of emergency call 911 Patient decided to leave against medical advice. I took the time to go over risks of leaving against medical advice including , worsening infection. Patient verbalizes understanding of this. Advised them to come back if they change their mind. Return if you change your mind Prescriptions: New doxycycline hyclate 100 mg capsule 100 mg PO BID 35 Days Qty: 70 0RF cephalexin 500 mg tablet 500 mg PO Q6H 14 Days Qty: 56 0RF No Action methadone [Methadose] 10 mg/mL Concentrate 125 mg PO DAILY amlodipine 10 mg Tablet 10 mg PO DAILY Qty: 30 0RF Protocol: Hold for SBP< HOLD for SBP < : 90 lisinopril 10 mg Tablet 10 mg PO DAILY Qty: 30 0RF Protocol: Hold for SBP< HOLD for SBP < : 90 daptomycin 500 mg Recon Soln 930 mg IV Q24H 36 Days Qty: 36 0RF Referrals: Physician,None [Primary Care Provider] - 2 days Stand Alone Forms: Against Medical Advice
== END 2024-01-09 16:30 | disposition left against medical advice (07) ==
PROVIDERS: Emergency Provider Emergency Medicine
DX: L03.115 Cellulitis of right lower limb (principal); R78.81 Bacteremia; F11.10 Opioid abuse, uncomplicated
CPT/HCPCS: 96365; 96366; 99285; J0878

== ENCOUNTER 2024-01-17 13:06 | Outpatient (AMB) | payer OTHER, SELFPAY ==
[2024-01-17 13:14] VITALS: BP 161/102; PULSE 77; TEMP 36.4; BMI 34.4
--- NOTE | 2024-01-17 13:14 | A.OFFVIS_ITS ---
Intake Vital Signs 3 01/17/24 13:14 Height 5 ft 10 in Weight 240 lb BMI 34.4 BP 161/102 H Blood Pressure Location Rt brachial Position Sitting Pulse 77 Pulse Source Pulse Oximeter Temp 97.6 F Temp Source Oral Intake Visit Reasons: [facility] list/cellulitis IVDA Allergies shellfish derived [SHELLFISH DERIVED] Allergy (Unknown, Verified 01/17/24 13:18) ANGIOEDEMA vancomycin Allergy (Verified 01/17/24 13:18) Unknown shellfish Allergy (Unknown, Uncoded 01/05/24 22:20) anaphylaxis HPI [facility] list/cellulitis IVDA 2 HPI0 Details He is here followup RLE cellulitis and MSSA bacteremia. He has no complaints. He has used IV drugs. [facility] Medical History Opioid use disorder Opioid dependence HTN (hypertension) PAD (peripheral artery disease) Active substance abuse Social History Household Members: Family Household Members Other:: 2 Housing: Other Housing Other:: duplex Do you presently have visiting nurse or other home services: No Alcohol intake: never Comment: Refusing alarms. Patient Tobacco Use Status: Current everyday Tobacco user Tobacco use type: Cigarette Cigarettes Per Day: 2 e-Cigarette/Vaping Use: Currently Using Substance Use Type: Heroin, Marijuana and Opiates Advance Directives Date on File: 12/01/21 service: No Current occupational status: disabled Review of Systems Const All systems reviewed & are unremarkable except as noted in HPI and below Physical Exam Vital Signs: Last Vital Signs Temp 97.6 F 01/17/24 13:14 Pulse 77 01/17/24 13:14 BP 161/102 H 01/17/24 13:14 BMI result Body Mass Index 34.4 Const Other: General: cooperative Orientation/consciousness: patient oriented x3 HEENT Head: Yes normal to inspection Mouth: Normal oral and palatal mucosa present Eyes General: appearance normal, both eyes and all related structures Pupils: Equal, round and reactive pupils present Resp Effort & Inspection: normal respiratory effort Cardio Rate: regular rate Rhythm: regular rhythm GI Palpation (GI): Soft to palpation and nontender General: Yes no CVA tenderness Back/Spine/Pelvis Back: no CVA tenderness Skin General skin exam: no rashes or lesions noted Neuro General: patient oriented x3 Cranial nerves: Yes CN's II-XII intact bilaterally and Yes Equal, round and reactive pupils present Extrem General: Yes normal to inspection Psych Appearance: grossly normal Assessment & Plan Assessment & Plan (1) Cellulitis: Comment: Inflammation now resolved He is doing well. Code(s): L03.90 - Cellulitis, unspecified Qualifiers: Laterality: left Site of cellulitis: extremity Site of cellulitis of extremity: lower extremity Qualified Code(s): L03.116 - Cellulitis of left lower limb Plan: Finish Daptomycin on 02/09. He is seeing GI for Hepatitis C. See back again as needed. Coding Level of Care Code Est Pt Level 3 (64326) Diagnoses Cellulitis L03.116 Laterality: left Site of cellulitis: extremity Site of cellulitis of extremity: lower extremity
== END 2024-01-17 13:42 | disposition home or self-care (01) ==
LOC: HO.HID 13:06
PROVIDERS: Visit Provider Internal Medicine
DX: L03.116 Cellulitis of left lower limb (principal)
CPT/HCPCS: 99213

== ENCOUNTER → 2024-01-17 13:06 | Outpatient (BNVA) | payer OTHER, SELFPAY | PROVIDERS: Visit Provider Internal Medicine | DX: L03.116 Cellulitis of left lower limb (principal); R78.81 Bacteremia; B95.61 Methicillin susceptible Staphylococcus aureus infection as the cause of diseases classified elsewhere; F11.20 Opioid dependence, uncomplicated; F14.20 Cocaine dependence, uncomplicated; F12.20 Cannabis dependence, uncomplicated | CPT/HCPCS: 99212 ==